=== PATIENT | female | born 1975 | race Two or more races ===

== ENCOUNTER 2020-07-02 10:11 | Outpatient (REF) | payer OTHER, SELFPAY ==
--- NOTE | ~2020-07-02 | US_ITS ---
EXAMINATION: US THYROID CLINICAL INFORMATION: Hypothyroidism COMPARISON: None TECHNIQUE: Linear transducer grayscale and color Doppler examination with attention to the region of the thyroid. FINDINGS: SIZE: Measurements of the thyroid lobes and nodules are given in sagittal, anteroposterior and transverse dimensions respectively. Right Thyroid Lobe: 3.1 x 0.9 x 1.0 cm, volume 1.5 mL. Parenchyma: The gland echotexture is heterogeneous. Thyroid vascularity is normal. Left Thyroid Lobe: 3.1 x 0.8 x 0.7 cm, volume 0.9 mL. Parenchyma: The gland echotexture is heterogeneous. Thyroid vascularity is normal. Isthmus: 0.4 cm in maximum AP dimension. No focal thyroid nodule is seen. NODES: No lymphadenopathy is seen in the tissue surrounding the thyroid gland. US/US thyroid IMPRESSION: Small heterogeneous hypoechoic thyroid gland without focal abnormality most consistent with sequelae of thyroiditis. Imaging follow-up is recommended as clinically indicated. ACR TI-RADS RECOMMENDATION REFERENCE: Ultrasound-guided fine-needle aspiration, followup ultrasound, no further follow up. * TR1 (0 point) and TR 2 (2 points): No FNA or follow up * TR3 (3 points): FNA if more than or equal to 2.5 cm in maximum dimension, followup ultrasound in 1, 3 and 5 years if 1.5 to 2.4 cm in maximum dimension. * TR4 (4-6 points): FNA if more than or equal to 1.5 cm in maximum dimension, followup ultrasound in 1, 2, 3 and 5 years if 1 to 1.4 cm in maximum dimension. * TR5 (more than or equal to 7 points): FNA if more than or equal to 1 cm in maximum dimension, followup ultrasound every year for 5 years if 0.5 to 0.9 cm in maximum dimension. * TR3, TR4 or TR5 nodules that are below the size threshold for follow up receive no follow up.
== END 2020-07-02 10:12 | disposition home or self-care (01) ==
LOC: HO.US 10:11
PROVIDERS: PCP Internal Medicine; Visit Provider Internal Medicine
DX: E03.8 Other specified hypothyroidism (principal)
CPT/HCPCS: 76536

== ENCOUNTER 2020-11-19 13:50 | Outpatient (REF) | payer OTHER, SELFPAY ==
--- NOTE | ~2020-11-19 | MM_ITS ---
EXAMINATION: MM SCREENING DIGITAL BREAST TOMOSYNTHESIS, BILATERAL CLINICAL INFORMATION: Screening. Asymptomatic. The lifetime risk of breast cancer based on the Tyrer-Cuzick Model is 8%. COMPARISON: Mammography: 11/14/2019; outside mammography 01/05/2018, 08/18/2016 ([facility]) TECHNIQUE: Digital breast tomosynthesis is performed in both the craniocaudal and mediolateral oblique views along with computer-aided detection (CAD). Synthesized 2D images are generated from the tomosynthesis. FINDINGS: There are scattered areas of fibroglandular density (ACR BI-RADS breast composition Category b). The left MLO view has asymmetric density mid upper breast 7.5 cm from nipple without correlate on CC view likely summation artifact. Patient will be recalled for additional imaging. The remainder left breast shows no mass or architectural abnormality or abnormal calcifications. The right breast has some loosely grouped calcifications grouped mid 7:00 position. Additional magnification views will be requested. The remainder of the right breast shows no mass or architectural abnormality. The bilateral axilla and skin contours are unremarkable. MM/MM tomosynthesis screening BI IMPRESSION: 1. Left: Asymmetric density mid upper breast on MLO view, likely summation artifact. 2. Right: Loosely grouped calcifications mid 7:00 position. ASSESSMENT: BI-RADS 0: Incomplete - Need Additional Imaging Evaluation RECOMMENDATION: 1. Additional views of the left breast (and spot MLO, standard ML). 2. Additional views of the right breast (magnification CC, magnification ML). 3. Targeted ultrasound left breast if warranted after review of the additional views. 4. Radiology department staff will contact the patient for additional imaging. This patient's information was entered into a reminder system with a target due date for their next mammogram.
== END 2020-11-19 13:51 | disposition home or self-care (01) ==
LOC: HO.MAMMO 13:50
PROVIDERS: Visit Provider Internal Medicine
DX: Z12.31 Encounter for screening mammogram for malignant neoplasm of breast (principal)
CPT/HCPCS: 77063; 77067

== ENCOUNTER 2020-12-07 09:43 | Outpatient (REF) | payer OTHER, SELFPAY ==
--- NOTE | ~2020-12-07 | MM_ITS ---
EXAMINATION: MM DIAGNOSTIC DIGITAL BREAST TOMOSYNTHESIS, BILATERAL CLINICAL INFORMATION: Recall from screening for bilateral findings: Asymmetric density upper left breast limited to MLO view; and loosely grouped calcifications mid 7:00 right breast. TC score 8%. COMPARISON: Mammography: 11/19/2020, 11/14/2019, 01/05/2018 TECHNIQUE: Digital breast tomosynthesis is performed. 2D images are generated from the tomosynthesis. The following views are obtained: 3-D spot left MLO, 3-D standard left ML, magnification right CC, magnification right ML. FINDINGS: There are scattered areas of fibroglandular density (ACR BI-RADS breast composition Category b). Additional views left breast demonstrate no persistent asymmetric density, mass, architectural abnormality in the area of interest. Left breast will be reassessed again at time of next bilateral annual mammography. Additional magnification views right breast demonstrates group of 4 benign round calcifications mid 7:00 position. Calcifications will be reassessed again in 6 months. Results are discussed with the patient at time of visit. MM/MM tomosynthesis added view BI IMPRESSION: 1. Right: Group of approximately 4 round benign-appearing calcifications mid 7:00 position. 2. Left: Additional views show no significant changes from prior studies. ASSESSMENT: BI-RADS 3: Probably Benign RECOMMENDATION: Diagnostic right mammography in 6 months. This patient's information was entered into a reminder system with a target due date for their next mammogram.
== END 2020-12-07 09:44 | disposition home or self-care (01) ==
LOC: HO.MAMMO 09:43
PROVIDERS: Visit Provider Internal Medicine
DX: R92.1 Mammographic calcification found on diagnostic imaging of breast (principal); R92.2 Inconclusive mammogram
CPT/HCPCS: 77062; 77066

== ENCOUNTER 2021-06-11 10:32 | Outpatient (REF) | payer OTHER, SELFPAY ==
--- NOTE | ~2021-06-11 | MM_ITS ---
EXAMINATION: MM DIAGNOSTIC DIGITAL BREAST TOMOSYNTHESIS, RIGHT CLINICAL INFORMATION: Six-month followup right breast calcifications. COMPARISON: Mammography: 12/07/2020 and studies dating back to 08/18/2016 TECHNIQUE: Digital breast tomosynthesis is performed in both the craniocaudal and mediolateral oblique views along with computer-aided detection (CAD). Synthesized 2-D images are generated from the tomosynthesis. Spot magnification views of the right breast in 90-degree mediolateral view and craniocaudal view performed. FINDINGS: There are scattered areas of fibroglandular density (ACR BI-RADS breast composition Category b). There is a stable parenchymal pattern of the right breast with no new abnormal dominant mass or suspicious grouping of microcalcifications. The calcifications within the inferior lateral aspect are stable. There is a stable region of asymmetric density within the deep lateral aspect of the right breast. Results are provided to the patient at time of visit by the technologist. MM/MM tomosynthesis diagnostic RT IMPRESSION: There are no significant changes from prior study. ASSESSMENT: BI-RADS 3: Probably Benign. RECOMMENDATION: Diagnostic mammography in 6 months. This patient's information was entered into a reminder system with a target due date for their next mammogram.
== END 2021-06-11 10:33 | disposition home or self-care (01) ==
LOC: HO.MAMMO 10:32
PROVIDERS: PCP Internal Medicine; Visit Provider Internal Medicine
DX: R92.1 Mammographic calcification found on diagnostic imaging of breast (principal)
CPT/HCPCS: 77061; 77065

== ENCOUNTER 2021-12-28 10:36 | Outpatient (REF) | payer OTHER, SELFPAY ==
--- NOTE | ~2021-12-28 | MM_ITS ---
EXAMINATION: MM SCREENING DIGITAL BREAST TOMOSYNTHESIS, BILATERAL CLINICAL INFORMATION: Screening. Asymptomatic. The lifetime risk of breast cancer based on the Tyrer-Cuzick Model is 9%. COMPARISON: Mammography: 06/11/2021, 12/07/2020, 11/19/2020, 11/14/2019, outside mammography 01/05/2018 ([facility]). TECHNIQUE: Digital breast tomosynthesis is performed in both the craniocaudal and mediolateral oblique views along with computer-aided detection (CAD). Synthesized 2D images are generated from the tomosynthesis. FINDINGS: There are scattered areas of fibroglandular density (ACR BI-RADS breast composition Category b). There are no significant masses, abnormal calcifications, or other abnormalities. Parenchymal pattern is similar to prior studies. There is no developing density or architectural abnormality. The axilla and skin contours are unremarkable. No significant changes. MM/MM tomosynthesis screening BI IMPRESSION: No mammographic evidence of malignancy. ASSESSMENT: BI-RADS 1: Negative RECOMMENDATION: Routine annual mammography screening. This patient's information was entered into a reminder system with a target due date for their next mammogram.
== END 2021-12-28 10:37 | disposition home or self-care (01) ==
LOC: HO.MAMMO 10:36
PROVIDERS: PCP Internal Medicine; Visit Provider Internal Medicine
DX: Z12.31 Encounter for screening mammogram for malignant neoplasm of breast (principal)
CPT/HCPCS: 77063; 77067

== ENCOUNTER → 2022-01-03 09:39 | Outpatient (BNVA) | payer OTHER, SELFPAY | PROVIDERS: PCP Internal Medicine; Visit Provider Physician Assistant Surgical | DX: E66.01 Morbid (severe) obesity due to excess calories (principal); Z68.42 Body mass index [BMI] 45.0-49.9, adult; Z11.0 Encounter for screening for intestinal infectious diseases | CPT/HCPCS: 83013; 99202; 99211 ==

== ENCOUNTER 2022-01-03 16:37 | Outpatient (REF) | payer OTHER, SELFPAY ==
[2022-01-04 14:00] LABS: H Pylori Breath Test Negative (Negative)
== END 2022-01-03 16:38 | disposition home or self-care (01) ==
LOC: HO.LNP 16:37
PROVIDERS: Visit Provider Physician Assistant Surgical
DX: Z13.89 Encounter for screening for other disorder (principal)
CPT/HCPCS: 83013

== ENCOUNTER 2022-01-04 10:49 | Outpatient (REF) | payer OTHER, SELFPAY ==
--- NOTE | ~2022-01-04 | XR_ITS ---
EXAMINATION: XR CHEST CLINICAL INFORMATION: Obesity COMPARISON: None TECHNIQUE: 2 views of the chest were obtained. FINDINGS: The cardiac and mediastinal contours are normal. The lungs are clear. There is no pleural effusion or pneumothorax. There are degenerative changes of the spine. XR/XR chest 2V IMPRESSION: No evidence for acute disease in the chest.
[2022-01-04 11:18] LABS: MANUAL DIFF FLAG NO
--- NOTE | 2022-01-04 11:20 | ECG_ITS ---
Test Reason : E66.01 Blood Pressure : / mmHG Vent. Rate : 075 BPM Atrial Rate : 075 BPM P-R Int : 142 ms QRS Dur : 082 ms QT Int : 386 ms P-R-T Axes : 029 053 034 degrees QTc Int : 431 ms Normal sinus rhythm Normal ECG No previous ECGs available Referred By: Dawson Ziegler Electronically Signed By:PAMELA RHODES MD
[2022-01-04 11:42] LABS: Basophils Percent Auto 0.4 % (0-2); Eosinophils Absolute Auto 0.2 X10*3/uL (0.0-0.4); Eosinophils Percent Auto 3.1 % (0-4); Hematocrit 36.8 % (37.0-47.0); Hemoglobin 11.8 g/dl (12.0-16.0); Imm Gran Abs Auto 0.02 X10*3/uL (0.00-0.03); Imm Gran Pct Auto 0.3 % (0.0-0.4); Lymphocytes Absolute Auto 2.5 X10*3/uL (1.2-4.9); Lymphocytes Percent Auto 34.3 % (20-40); Mean Corpuscular HGB Conc 32.1 g/dl (31.0-35.0); Mean Corpuscular Hemoglobin 26.3 pg (27.0-33.0); Mean Corpuscular Volume 82.1 fL (80.0-98.0); Mean Platelet Volume 10.4 fL (9.4-12.3); Monocytes Absolute Auto 0.5 X10*3/uL (0.1-1.2); Monocytes Percent Auto 6.5 % (2-11); Neutrophils Percent Auto 55.4 % (45-73); Platelet Count 237 X10*3/uL (160-400); Red Blood Count 4.48 X10*6/uL (4.20-5.50); Red Cell Distribution Width 12.5 % (11.0-16.0); White Blood Count 7.2 X10*3/uL (4.8-10.8)
[2022-01-04 12:21] LABS: Alanine Aminotransferase 48 U/L (0-31); Albumin Level 3.8 g/dL (3.5-5.0); Alkaline Phosphatase 68 U/L (39-117); Anion Gap 14 (12-20); Aspartate Amino Transferase 51 U/L (5-31); Bilirubin Total 0.6 mg/dL (0.0-1.0); Blood Urea Nitrogen 9 mg/dL (9-16); C Reactive Protein 1.01 mg/dL (< or = 0.50); Calcium 9.2 mg/dL (8.4-10.2); Carbon Dioxide 23 mmol/L (22-29); Chloride 107 mmol/L (96-108); Cholesterol 173 mg/dL; Estimated Glomerular Filt Rate > 60; Glucose Random 110 mg/dL (60-115); HDL Cholesterol 38 mg/dL; Iron 153 mcg/dL (30-160); LDL Cholesterol Calculated 112 mg/dl; Percent Iron Saturation 37 % (15-50); Potassium 3.9 mmol/L (3.3-5.1); Sodium 140 mmol/L (135-145); Total Iron Binding Capacity 414 mcg/dL (228-428); Total Protein 7.4 g/dL (6.5-8.0); Triglycerides 119 mg/dL; Unsaturated Iron Binding 261 ug/dL
[2022-01-04 12:22] LABS: Ferritin 51 ng/mL (10-250); Insulin 27 uU/mL (2-29); TSH reflex Free T4 0.25 uIU/mL (0.32-4.0); Vitamin D 25-OH Total 16.3 ng/mL (>30)
[2022-01-04 12:46] LABS: Folate 12.5 ng/mL (> or = 4.0); Vitamin B12 157 pg/mL (200-900)
[2022-01-04 13:01] LABS: Free T4 (Free Thyroxine) 1.11 ng/dL (0.71-1.85)
[2022-01-04 13:36] LABS: Estimated Average Glucose 126 mg/dL
[2022-01-06 14:27] LABS: Calcium (PTHI) 9.1 mg/dL (8.6-10.2); PTHI 93 pg/mL (16-77)
[2022-01-07 14:10] LABS: Zinc 68 mcg/dL (60-130)
[2022-01-08 00:52] LABS: Vitamin A 29 mcg/dL (38-98)
[2022-01-10 13:37] LABS: Vitamin B1 8 nmol/L (8-30)
== END 2022-01-04 10:50 | disposition home or self-care (01) ==
LOC: HO.LAB 10:49
PROVIDERS: PCP Internal Medicine; Visit Provider Physician Assistant Surgical
DX: E66.01 Morbid (severe) obesity due to excess calories (principal)
CPT/HCPCS: 36415; 71046; 80053; 80061; 82306; 82607; 82728; 82746; 83036; 83525; 83540; 83970; 84425; 84439; 84443; 84590; 84630; 85025; 86140; 93005

== ENCOUNTER → 2022-01-11 14:00 | Outpatient (BNVA) | payer OTHER, SELFPAY | PROVIDERS: PCP Internal Medicine; Referring Provider Physician Assistant Surgical; Visit Provider Counselor Mental Health | DX: F43.20 Adjustment disorder, unspecified (principal); E66.01 Morbid (severe) obesity due to excess calories | CPT/HCPCS: 90791 ==

== ENCOUNTER → 2022-02-01 13:17 | Outpatient (BNVA) | payer OTHER, SELFPAY | PROVIDERS: PCP Internal Medicine; Referring Provider Physician Assistant Surgical; Visit Provider Dietitian, Registered | DX: E66.01 Morbid (severe) obesity due to excess calories (principal); Z68.41 Body mass index [BMI] 40.0-44.9, adult | CPT/HCPCS: 97802 ==

== ENCOUNTER 2022-02-21 08:20 | Outpatient (REF) | payer OTHER, SELFPAY ==
--- NOTE | ~2022-02-21 | FL_ITS ---
EXAMINATION: XR FLUOROSCOPY UPPER GI WITH AIR CLINICAL INFORMATION: Morbid/severe obesity due to excess calories. COMPARISON: None TECHNIQUE: Routine upper GI air-contrast study was performed in upright and lying positions. FINDINGS: Following oral administration of thick barium and effervescent granules, there is normal propagation of bolus from the oral cavity through the pharynx and esophagus and into the stomach without any evidence of obstruction, narrowing or stricture. On placing patient supine and prone lying, the course, caliber and peristalsis of stomach, duodenal bulb and the sweep are normal. The mucosal pattern of the stomach and the duodenum is normal. FLUOROSCOPY TIME: 1.1 min. DOSE AREA PRODUCT: 28.923 uGy-m2 (microgray-meter squared). FL/FL upper GI w air IMPRESSION: Unremarkable upper GI air-contrast study.
--- NOTE | ~2022-02-21 | US_ITS ---
EXAMINATION: US COMPLETE ABDOMEN WITH LIVER ELASTOGRAPHY CLINICAL INFORMATION: Morbid to severe obesity. COMPARISON: None. TECHNIQUE: Real-time imaging of the abdominal viscera. Noninvasive ultrasound liver fibrosis assessment is performed using Adrian ElastPQ point quantification shear wave elastography (2D-SWE) with a C5-2 MHz transducer. Multiple elastography samples are obtained. FINDINGS: PANCREAS: Normal. The visualized pancreatic head and body are normal in appearance. The remainder of the pancreas is obscured from visualization by the overlying bowel gas. ABDOMINAL AORTA: The proximal, middle, and distal aortic segments are normal in caliber. INFERIOR VENA CAVA: Visualized portions are normal. LIVER: Normal. The liver demonstrates normal size, contour and echogenicity. No focal lesion or intrahepatic biliary duct dilatation. The right lobe measures 12.3 cm in length. The left lobe measures 9.9 cm in length. Portal flow is hepatopedal. Shear wave liver elastography median stiffness is 1.38 m/s (reference: normal median stiffness is 1.3 m/s or less). Quality of elasto sampling is suboptimal. IQR/median stiffness to assess sampling precision is 0.22 (reference: good quality data set is IQR/median stiffness of 0.15 or less). GALLBLADDER: The gallbladder is physiologically distended with multiple echogenic stones. No sludge, polyps, wall thickening or pericholecystic fluid seen. COMMON BILE DUCT: Normal in caliber measuring 0.4 cm in diameter. RIGHT KIDNEY: Cyst upper pole complex measuring 1.4 x 1.1 x 1.0 cm. No hydronephrosis. No renal calculi or focal parenchymal lesions. The kidney measures 11.1 cm in maximum dimension. LEFT KIDNEY: Normal. No hydronephrosis. No renal calculi or focal parenchymal lesions. The kidney measures 10.3 cm in maximum dimension. SPLEEN: Normal. The spleen measures 10.3 cm in maximum dimension. FREE FLUID: None. US/US abdomen comp w elastography IMPRESSION: 1. Complex upper pole right renal cyst measuring 1.4 cm. 2. Cholelithiasis without wall thickening. 3. Liver elastography: Median liver stiffness measures 1.38 m/s, borderline high probability normal. REFERENCE: Society of Radiologists in Ultrasound Liver Stiffness Thresholds (2020): LIVER STIFFNESS THRESHOLDS: *Liver Stiffness equal or less than 1.3 m/s: High probability of being normal. *Liver Stiffness less than 1.7 m/s: In the absence of other known clinical signs, rules out compensated advanced chronic liver disease. *Liver Stiffness 1.7-2.1 m/s: Suggestive of compensated advanced chronic liver disease but need further test for confirmation. *Liver Stiffness over 2.1 m/s: Rules in compensated advanced chronic liver disease. *Liver Stiffness over 2.4 m/s: Suggestive of significant portal hypertension. QUALITY OF DATA SET: *IQR/Median value equal or less than 0.15 implies a quality data set. *IQR/Median value over 0.15 implies a poor quality data set. SIGNIFICANT CHANGE FROM PRIOR EXAM: Significant change if liver stiffness measurement is 10% or greater from prior exam. OTHER CONSIDERATIONS: The stage of liver fibrosis may be overestimated in the setting of acute hepatitis, liver inflammation, elevated liver function tests, hepatic vascular congestion, obstructive cholestasis, non-fasting state, and infiltrative diseases such as amyloidosis and lymphoma. In some patients with NAFLD, the liver stiffness thresholds for compensated advanced chronic liver disease may be lower. In causes other than viral hepatitis and NAFLD, liver stiffness thresholds are not well established.
[2022-02-21 08:46] LABS: MANUAL DIFF FLAG NO
[2022-02-21 09:16] LABS: Basophils Percent Auto 0.4 % (0-2); Eosinophils Absolute Auto 0.1 X10*3/uL (0.0-0.4); Hematocrit 40.1 % (37.0-47.0); Hemoglobin 12.5 g/dl (12.0-16.0); Imm Gran Abs Auto 0.01 X10*3/uL (0.00-0.03); Imm Gran Pct Auto 0.2 % (0.0-0.4); Lymphocytes Absolute Auto 1.6 X10*3/uL (1.2-4.9); Lymphocytes Percent Auto 35.7 % (20-40); Mean Corpuscular HGB Conc 31.2 g/dl (31.0-35.0); Mean Corpuscular Hemoglobin 25.8 pg (27.0-33.0); Mean Corpuscular Volume 82.7 fL (80.0-98.0); Mean Platelet Volume 11.7 fL (9.4-12.3); Monocytes Absolute Auto 0.3 X10*3/uL (0.1-1.2); Monocytes Percent Auto 6.5 % (2-11); Neutrophils Absolute Auto 2.5 x10*3/uL (2.0-8.3); Neutrophils Percent Auto 54.2 % (45-73); Platelet Count 183 X10*3/uL (160-400); Red Blood Count 4.85 X10*6/uL (4.20-5.50); Red Cell Distribution Width 13.8 % (11.0-16.0); White Blood Count 4.6 X10*3/uL (4.8-10.8)
[2022-02-21 09:17] LABS: INTERNATIONAL NORM RATIO 1.2 (0.9-1.1); Prothrombin Time 13.4 SEC (10.0-13.1)
[2022-02-21 09:20] LABS: Partial Thromboplastin Time 31.3 SEC (26.0-36.4)
[2022-02-21 09:38] LABS: Estimated Average Glucose 108 mg/dL; Hemoglobin A1c % 5.4 %
[2022-02-21 09:57] LABS: Alanine Aminotransferase 75 U/L (0-31); Alkaline Phosphatase 56 U/L (39-117); Anion Gap 12 (12-20); Aspartate Amino Transferase 56 U/L (5-31); Bilirubin Total 0.6 mg/dL (0.0-1.0); Blood Urea Nitrogen 13 mg/dL (9-16); Calcium 9.4 mg/dL (8.4-10.2); Carbon Dioxide 23 mmol/L (22-29); Chloride 105 mmol/L (96-108); Cholesterol 155 mg/dL; Estimated Glomerular Filt Rate > 60; Glucose Random 87 mg/dL (60-115); HDL Cholesterol 34 mg/dL; Insulin 12 uU/mL (2-29); LDL Cholesterol Calculated 103 mg/dl; Potassium 4.3 mmol/L (3.3-5.1); Sodium 136 mmol/L (135-145); TSH reflex Free T4 2.17 uIU/mL (0.32-4.0); Total Protein 7.4 g/dL (6.5-8.0); Triglycerides 92 mg/dL
== END 2022-02-21 08:21 | disposition home or self-care (01) ==
LOC: HO.XRAY 08:20
PROVIDERS: Absent Provider Surgery; PCP Internal Medicine; Visit Provider Physician Assistant Surgical
DX: E66.01 Morbid (severe) obesity due to excess calories (principal); E03.9 Hypothyroidism, unspecified
CPT/HCPCS: 36415; 74246; 76705; 76981; 80053; 80061; 83036; 83525; 84443; 85025; 85610; 85730; 86140

== ENCOUNTER 2022-03-08 11:57 | Inpatient (IN) | payer OTHER, SELFPAY ==
[2022-02-24 10:24] VITALS: BMI 40.5
--- NOTE | 2022-03-04 10:35 | HO.ANESPROP2 ---
Documented by User: Monet White NP 03/04/22 10:42 HPI - Anesthesia Eval Consult details Narrative: 46yo F for Gastrectomy Sleeve,EGD,possible diaphragmatic hernia,possible ventral hernia,possible open PMFSH Active Problems Active Problems: All Active Problems (Updated 02/24/22 @ 10:29 by Ene Dillon RN) Morbid obesity (Acute) Adjustment disorder, unspecified (Acute) Non-insulin dependent diabetes mellitus (Acute) Hypothyroid (Acute) Past Medical History Medical History Arthritis Environmental and seasonal allergies Hypothyroid Family History Family History Mother Anxiety Developmental delay Father Diabetes Daughter No known health problems Daughter Premature baby Son Hypoglycemia Eye abnormalities Obstructive sleep apnea (adult) (pediatric) Developmental delay Surgical History Surgical History (Updated 03/08/22 @ 13:18 by Lynette Pepper MD) delivery delivered History of root canal procedure Social History Social History Household Members: Spouse and Children Housing: House Are you a primary critical care transport nurse to a significant other at home: No Do you presently have visiting nurse or other home services: No Alcohol intake: never Patient Tobacco Use Status: Never used Tobacco Current occupational status: employed Current occupation: [employer] Meds Allergies Allergy/AdvReac Type Severity Reaction Status Date / Time Iodinated Contrast Media Allergy Severe Anaphylaxis Verified 02/24/22 10:24 [IV Contrast Dye] shellfish derived Allergy Severe Anaphylaxis Verified 02/24/22 10:23 Home Medications Medication Instructions Recorded Confirmed Last Taken Type cetirizine 10 mg tablet 10 mg PO DAILY 12/08/21 02/24/22 Unknown History fluticasone propionate 50 2 spray intranasal DAILY 12/08/21 02/24/22 Unknown History mcg/actuation nasal spray,suspension ketotifen fumarate 0.025 % (0.035 1 drp ophthalmic (eye) BID 12/08/21 02/24/22 Unknown History %) eye drops (Allergy Eye (ketotifen)) montelukast 10 mg tablet 10 mg PO BEDTIME 12/08/21 02/24/22 Unknown History oxybutynin chloride 10 mg 10 mg PO DAILY 12/08/21 02/16/22 Unknown History tablet,extended release 24 hr epinephrine 0.3 mg/0.3 mL IM DIRECTED anaphylaxis 02/24/22 02/24/22 Unknown History injection, auto-injector levothyroxine 125 mcg tablet 1 tab DAILY 02/24/22 02/24/22 Unknown History Exam Exam Date and Time: March 04, 2022 1035 Height,Weight and Vital Signs: Height 5 ft 1.5 in Weight 98.883 kg Pertinent Lab Results Pertinent Lab Results: Laboratory Tests 02/21/22 08:40 Blood Type A Positive Antibody Screen NEGATIVE Laboratory Tests 02/21/22 02/21/22 08:45 08:45 WBC 4.6 L Hgb 12.5 Hct 40.1 Plt Count 183 Sodium 136 Potassium 4.3 Chloride 105 Carbon Dioxide 23 BUN 13 Creatinine 0.92 Narrative Narrative: EKG 12/2021 Vent. Rate : 075 BPM ? ? Atrial Rate : 075 BPM ?? P-R Int : 142 ms? QRS Dur : 082 ms ? ? QT Int : 386 ms ? ? ? P-R-T Axes : 029 053 034 degrees ?? QTc Int : 431 ms ? Normal sinus rhythm Normal ECG No previous ECGs available Assessment and Plan Assessment Anesthesia Assessment: Chart Reviewed Documented by User: Lynette Pepper MD 03/08/22 13:30 [facility] Active Problems Active Problems: All Active Problems (Updated 02/24/22 @ 10:29 by Ene Dillon, SHELLY) Morbid obesity (Acute) Adjustment disorder, unspecified (Acute) Non-insulin dependent diabetes mellitus (Acute) Hypothyroid (Acute) Overactive bladder Past Medical History Medical History Arthritis Environmental and seasonal allergies Hypothyroid Family History Family History Mother Anxiety Developmental delay Father Diabetes Daughter No known health problems Daughter Premature baby Son Hypoglycemia Eye abnormalities Obstructive sleep apnea (adult) (pediatric) Developmental delay Family history of problems with anesthesia: No Surgical History Surgical History (Updated 03/08/22 @ 13:18 by Lynette Pepper MD) delivery delivered History of root canal procedure History of Problems with Anesthesia: No Social History Social History Household Members: Spouse and Children Housing: House Are you a primary critical care transport nurse to a significant other at home: No Do you presently have visiting nurse or other home services: No Alcohol intake: never Patient Tobacco Use Status: Never used Tobacco Current occupational status: employed Current occupation: [employer] Meds Allergies Allergy/AdvReac Type Severity Reaction Status Date / Time Iodinated Contrast Media Allergy Severe Anaphylaxis Verified 02/24/22 10:24 [IV Contrast Dye] shellfish derived Allergy Severe Anaphylaxis Verified 02/24/22 10:23 Home Medications Medication Instructions Recorded Confirmed Last Taken Type cetirizine 10 mg tablet 10 mg PO DAILY 12/08/21 02/24/22 Unknown History fluticasone propionate 50 2 spray intranasal DAILY 12/08/21 02/24/22 Unknown History mcg/actuation nasal spray,suspension ketotifen fumarate 0.025 % (0.035 1 drp ophthalmic (eye) BID 12/08/21 02/24/22 Unknown History %) eye drops (Allergy Eye (ketotifen)) montelukast 10 mg tablet 10 mg PO BEDTIME 12/08/21 02/24/22 Unknown History oxybutynin chloride 10 mg 10 mg PO DAILY 12/08/21 02/16/22 Unknown History tablet,extended release 24 hr epinephrine 0.3 mg/0.3 mL IM DIRECTED anaphylaxis 02/24/22 02/24/22 Unknown History injection, auto-injector levothyroxine 125 mcg tablet 1 tab DAILY 02/24/22 02/24/22 Unknown History Exam Height,Weight and Vital Signs: Height 5 ft 1.5 in Weight 98.883 kg Vital Signs Temp Pulse Resp BP Pulse Ox O2 Del Method 03/08/22 12:18 98.0 F 98 18 109/63 98 Room Air Pertinent Lab Results Pertinent Lab Results: Laboratory Tests 02/21/22 08:40 Blood Type A Positive Antibody Screen NEGATIVE Laboratory Tests 02/21/22 02/21/22 08:45 08:45 WBC 4.6 L Hgb 12.5 Hct 40.1 Plt Count 183 Sodium 136 Potassium 4.3 Chloride 105 Carbon Dioxide 23 BUN 13 Creatinine 0.92 Lab Results 02/21/22 03/08/22 03/08/22 Range/Units 08:40 12:02 12:02 Urine Test NEGATIVE (NEGATIVE) COVID-19 ([facility]) Negative (Negative) COVID-19 Clin Com See Note Blood Type A Positive Antibody Screen NEGATIVE Airway Mallampati Class: II TM Dist: >3cm Neck ROM: Full Loose/Missing/Broken Teeth: Yes (Many missing. Broken bottom right back) Heart: RRR Lungs: CTAB Assessment and Plan Assessment Anesthesia Assessment: Anesthesia Plan Discussed Final Anesthetic Review Family History of Problems with Anesthesia: No History of Problems with Anesthesia: No NPO: Yes ASA Class: III Final Preanesthetic Review: No Changes in Pt Med Stat, Meds/Allgs Chart Reviewed, Consent Obtained/Reviewed and Anes Risks/Benef Reviewed Patient Risk: Intermediate Procedure Risk: Intermediate Assessment/Block/Sedation in SS: Assess/Block/Sedation- Anesthetic Plan Anesthetic Plan: GA Disposition: Standard PACU and Inp. Admit - Standard Bed
--- NOTE | 2022-03-05 13:42 | MHC.SHP ---
Pre-Procedural Eval Section A Date of Service: 03/05/22 The patient is an INPATIENT: Yes The History & Physical has been completed within 30 days and I have reviewed it.: Yes Section B Chief Complaint: Morbid (severe) obesity due to excess calories Relevant Family History (Specify if Yes): No Relevant Social History: None Present Medications: None Medical History: No relevant PMH History of Previous Operations: No relevant previous surgery Allergies: Allergies Allergy/AdvReac Type Severity Reaction Status Date / Time Iodinated Contrast Media Allergy Severe Anaphylaxis Verified 02/24/22 10:24 [IV Contrast Dye] shellfish derived Allergy Severe Anaphylaxis Verified 02/24/22 10:23 Review of Systems Sugical H&P ROS: Negative: Constitution, Cardiovascular, Respiratory, Neurological, Psychiatric, Hem-Onc, Allergic/Immunologic, Gastrointestinal, Genitourinary, Musculoskeletal, Integumentary, Endocrine and Eyes/Ears/Nose/Throat Exam Surgical H&P Exam: Normal: HEENT, Normal: Heart, Normal: Lungs, Normal: Extremities, Normal: Abdomen, Normal: Skin and Normal: Neurological Plan Diagnosis/Plan: Unchanged I have reviewed the history and physical and performed a pertinent physical examination on my patient. No changes have occurred unless specified. Time Spent With Patient Time: Total time managing care of this patient today ____ minutes.
[2022-03-08] VITALS (12 sets, daily range): BP systolic 103–137; BP diastolic 57–72; PULSE 59–98; RESP 15–18; TEMP 36.1–37.1; O2SAT 98–100; BMI 37.5
[2022-03-08 12:29] LABS: UPreg QC Valid YES; Urine Pregnancy NEGATIVE (NEGATIVE)
[2022-03-08 12:37] LABS: COVID-19 Test Negative (Negative); IDNOW Serial# 16C4AD1C
[2022-03-08] MEDS: Lactated Ringers 1,000 ML 999 ML IV (12:43)
--- NOTE | 2022-03-08 13:55 | HO.ANESPROP2 ---
[facility] Active Problems Active Problems: All Active Problems (Updated 02/24/22 @ 10:29 by Ene Dillon RN) Morbid obesity (Acute) Adjustment disorder, unspecified (Acute) Non-insulin dependent diabetes mellitus (Acute) Hypothyroid (Acute) Past Medical History Medical History Arthritis Environmental and seasonal allergies Hypothyroid Family History Family History Mother Anxiety Developmental delay Father Diabetes Daughter No known health problems Daughter Premature baby Son Hypoglycemia Eye abnormalities Obstructive sleep apnea (adult) (pediatric) Developmental delay Family history of problems with anesthesia: No Surgical History Surgical History (Updated 03/08/22 @ 13:18 by Lynette Pepper MD) delivery delivered History of root canal procedure History of Problems with Anesthesia: No Social History Social History Household Members: Spouse and Children Housing: House Are you a primary resident care technician to a significant other at home: No Do you presently have visiting nurse or other home services: No Alcohol intake: never Patient Tobacco Use Status: Never used Tobacco Have you been hit, kicked, punched, or otherwise hurt by someone within the past year? If so, by whom?: No Are you DNR?: No Advance Directives: No Advance Directives Information Provided: Yes Advance Directives on File: No Recently lost weight without trying: No Nutrition Risks: No Nutritional Risk Patient : No FDLMP: unknown : No Poor oral hygiene: No Current occupational status: employed Current occupation: [employer] Meds Allergies Allergy/AdvReac Type Severity Reaction Status Date / Time Iodinated Contrast Media Allergy Severe Anaphylaxis Verified 02/24/22 10:24 [IV Contrast Dye] shellfish derived Allergy Severe Anaphylaxis Verified 02/24/22 10:23 Active Medications: Current Medications Fentanyl (Fentanyl Citrate/Pf 100 Mcg/2 Ml Vial) 25 mcg IVPUSH Q5M PRN; Protocol PRN Reason: Pain, Moderate (Pain Scale 4-6 Hydromorphone HCl (Hydromorphone Hcl 0.5 Mg/0.5 Ml Syringe) 0.25 mg IVPUSH Q5M PRN; Protocol PRN Reason: Pain, Severe (Pain Scale 7-10) Lactated Ringer's (Lr) 1,000 mls @ 100 mls/hr IVCONT .Q10H DEANDRA Lactated Ringer's (Lr) 1,000 mls @ 999 mls/hr IV .Q1H1M DEANDRA Stop: 03/08/22 14:00 Last Admin: 03/08/22 12:43 Dose: 999 mls/hr Promethazine HCl 6.25 mg/ (Sodium Chloride) 50.25 mls @ 201 mls/hr IV ONCE PRN PRN Reason: Nausea and Vomiting Ondansetron HCl (Ondansetron Hcl 4 Mg/2 Ml Vial) 4 mg IVPUSH ONCE PRN PRN Reason: Nausea and Vomiting Home Medications Medication Instructions Recorded Confirmed Last Taken Type cetirizine 10 mg tablet 10 mg PO DAILY 12/08/21 02/24/22 Unknown History fluticasone propionate 50 2 spray intranasal DAILY 12/08/21 02/24/22 Unknown History mcg/actuation nasal spray,suspension ketotifen fumarate 0.025 % (0.035 1 drp ophthalmic (eye) BID 12/08/21 02/24/22 Unknown History %) eye drops (Allergy Eye (ketotifen)) montelukast 10 mg tablet 10 mg PO BEDTIME 12/08/21 02/24/22 Unknown History oxybutynin chloride 10 mg 10 mg PO DAILY 12/08/21 02/16/22 Unknown History tablet,extended release 24 hr epinephrine 0.3 mg/0.3 mL IM DIRECTED anaphylaxis 02/24/22 02/24/22 Unknown History injection, auto-injector levothyroxine 125 mcg tablet 1 tab DAILY 02/24/22 02/24/22 Unknown History Exam Exam Date and Time: March 08, 2022 1355 Height,Weight and Vital Signs: Height 5 ft 1.5 in Weight 91.626 kg Last Vital Signs Temp 98.0 F 03/08/22 12:18 Pulse 98 03/08/22 12:18 Resp 18 03/08/22 12:18 BP 109/63 03/08/22 12:18 Pulse Ox 98 03/08/22 12:18 O2 Del Method 03/08/22 12:18 Pertinent Lab Results Pertinent Lab Results: Laboratory Tests 02/21/22 03/08/22 03/08/22 08:40 12:02 12:02 Urine Test NEGATIVE COVID-19 (DELMIS) Negative COVID-19 Clin Com See Note Blood Type A Positive Antibody Screen NEGATIVE Airway Mallampati Class: II TM Dist: >3cm Neck ROM: Full Assessment and Plan Assessment Anesthesia Assessment: Anesthesia Plan Discussed and Chart Reviewed Final Anesthetic Review Family History of Problems with Anesthesia: No History of Problems with Anesthesia: No NPO: Yes ASA Class: III Final Preanesthetic Review: No Changes in Pt Med Stat, Meds/Allgs Chart Reviewed, Consent Obtained/Reviewed and Anes Risks/Benef Reviewed Patient Risk: Intermediate Procedure Risk: Intermediate Anesthetic Plan Anesthetic Plan: GA Disposition: Standard PACU
--- NOTE | 2022-03-08 14:13 | P.PNGS_ITS ---
Subjective Subjective Date of Service: 03/09/22 Interval history: Patient has mild incisional pain, but was able to ambulate and use the incentive spirometer. She is tolerating phase 1 bariatric diet Physical Exam Vital Signs: Vital Signs: Last Vital Signs Temp 98.0 F 03/08/22 12:18 Pulse 98 03/08/22 12:18 Resp 18 03/08/22 12:18 BP 109/63 03/08/22 12:18 Pulse Ox 98 03/08/22 12:18 O2 Del Method 03/08/22 12:18 BMI result Body Mass Index 37.5 GI: Inspection: Yes normal to inspection, Yes incision (clean, dry and intact) and Yes obesity Palpation (GI): Soft to palpation Extrem: Right lower extremity: normal to inspection (no calf tenderness) Left lower extremity: normal to inspection (no calf tenderness) Objective Data Active Medications Fentanyl (Fentanyl Citrate/Pf 100 Mcg/2 Ml Vial) 25 mcg IVPUSH Q5M PRN; Protocol PRN Reason: Pain, Moderate (Pain Scale 4-6 Fentanyl (Fentanyl Citrate/Pf 100 Mcg/2 Ml Vial) 50 mcg IVPUSH Q5M PRN; Pr otocol PRN Reason: Pain, Severe (Pain Scale 7-10) Hydromorphone HCl (Hydromorphone Hcl 0.5 Mg/0.5 Ml Syringe) 0.25 mg IVPUSH Q5M PRN; Protocol PRN Reason: Pain, Severe (Pain Scale 7-10) Lactated Ringer's (Lr) 1,000 mls @ 100 mls/hr IVCONT .Q10H DEANDRA Promethazine HCl 6.25 mg/ (Sodium Chloride) 50.25 mls @ 201 mls/hr IV ONCE PRN PRN Reason: Nausea and Vomiting Ondansetron HCl (Ondansetron Hcl 4 Mg/2 Ml Vial) 4 mg IVPUSH ONCE PRN PRN Reason: Nausea and Vomiting Ondansetron HCl (Ondansetron Hcl 4 Mg/2 Ml Vial) 4 mg IVPUSH ONCE PRN PRN Reason: Nausea and Vomiting Labs CBC & Chem 7: 03/09/22 06:09 03/09/22 06:09 Labs: Laboratory Results - last 24 hr 03/08/22 03/08/22 12:02 12:02 Urine Test NEGATIVE COVID-19 (DELMIS) Negative COVID-19 Clin Com See Note Procedures Date of Service Date of Service: 03/09/22 Progress Note: A&P Assessment and plan (1) Morbid obesity: Status: Acute Assessment and Plan: s/p laparoscopic sleeve gastrectomy and gastropexy Doing well Check am labs. If OK, will discharge home (2) Non-insulin dependent diabetes mellitus: Status: Acute (3) Hypothyroid: Status: Acute (4) Cholelithiasis: Status: Acute (5) Stress incontinence: Status: Acute (6) S/P laparoscopic sleeve gastrectomy: Status: Acute Time Spent With Patient Time: Total time managing care of this patient today ____ minutes. Quality Stroke Does the patient have a stroke diagnosis?: No VTE Prior VTE?: No VTE Risk Level:: Surgical - moderate VTE Device Contraindication: N/A - Device Ordered VTE Drug Contraindication: Treatment Not Indicated
--- NOTE | 2022-03-08 14:15 | PM.OP ---
Brief Operative Note Date of Service: 03/08/22 Pre-op diagnosis: Morbid obesity with comorbidities (see below) Post-op diagnosis: same Procedure: INITIAL PATIENT BMI ON PRESENTATION AT OUR OFFICE: 47 kg/m2 LAST BMI BEFORE SURGERY: 41.7 kg/m2 COMORBIDITIES: Hypothyroidism, non-insulin dependent diabetes, cholelithiasis, stress incontinence ?The patient presented to the Weight Management Program with significant obesity that was negatively impacting the patient's comorbidities as listed above.? The program is a phased program with a special focus on preoperative medical weight management to promote substantial weight loss and prepare the patients for the second phase of the program: bariatric surgery. The patient participated in an intensive weekly lifestyle ?intervention and exercise program during which the patient ?has lost between the initial office visit and the last preoperative visit 27.7lbs, or 11.13% of initial actual body weight. It was deemed appropriate for the patient to now have bariatric surgery. In light of the current Covid-19 pandemic and the well documented strong association of obesity and increased risk of worse outcomes if infected with Covid-19 (REFERENCES:https://pubmed.ncbi.nlm.nih.gov/23064138/,?https://pubmed.ncbi.nlm.nih.gov/53401743/), any delay in undergoing bariatric surgery may lead to the patient's worsening health condition and increased?risk of more severe Covid-19 disease if infected. In addition a recent?study from [facility] published in [facility] on 03/08/2021 ([email or web address]) found that, among patients with obesity, substantial weight loss achieved with surgery was associated with improved outcomes of COVID-19 infection. The findings suggest that obesity can be a modifiable risk factor for the severity of COVID-19 infection. In addition, the patient met the BMI-criteria for bariatric surgery based on the BMI on initial presentation. The patient should not be penalized for achieving such weight loss because ?it is not sustainable long-term without surgical intervention and it was achieved in preparation for bariatric surgery ?under my direction and based on my published research ([email or web address] and?[email or web address].soard.org/article/[email or web address](84)09458-X/pdf) ?that a 10% preoperative weight loss improves long-term weight loss after surgery and reduces perioperative complications.? Insurance carriers such as [facility] have endorsed my recommendations ?and have included in their policies criteria to include a 10% preoperative weight loss requirement. PROCEDURE: Esophago-gastroscopy, laparoscopic repair of incarcerated diaphragmatic hernia, laparoscopic lysis of adhesions, laparoscopic sleeve gastrectomy and laparoscopic gastropexy INDICATIONS: This is a 46 year-old female who was electively scheduled for laparoscopic, possibly open sleeve gastrectomy. The risks and complications of the procedure were discussed with the patient in advance, particularly the possibility of ; pulmonary embolism; staple line leak; bleeding; GERD; cardiac, pulmonary, or renal complications; as well as long-term problems such as insufficient weight loss, vitamin deficiency, strictures, or ulcers. The patient understood all the risks, and was in agreement to proceed with surgery. DESCRIPTION OF PROCEDURE: After informed consent was obtained from the patient, the patient was given preoperative antibiotics, and was transferred to the operating room. After successful induction of general anesthesia, pneumatic compression devices were placed on both lower extremities. An upper endoscopy was performed next. The oropharynx and esophagus appeared to be within normal limits. There was no diaphragmatic hernia present consistent with the findings of the preoperative upper GI. The stomach was entered. Then after all fluid and air were suctioned and the stomach was fully decompressed, the scope was withdrawn and secured in the mid esophagus. The patient was then prepped and draped in the usual sterile manner, and abdominal access was established at the right upper quadrant with the Adria technique. A 12 mm blunt port was inserted, and the abdomen was insufflated with CO2 to a pressure of 15 mmHg. Under direct visualization, additional ports were placed, specifically two 5 mm Versi-step ports to the left upper quadrant, and a 5 mm Versi-Step port to the right upper quadrant. 1% lidocaine plain was used to infiltrate all port sites as well as all fascia defects. Following that, the patient was placed in a steep reverse Trendelenburg position. An additional 5 mm port was placed to the right flank for the Mediflex retractor that was used to retract the left lobe of the liver. The gastro-esophageal fat pad was opened with the ultrasonic device (Thunderbeat, Olympus) and the anterior esophagus and hiatus were exposed. The angle of His was opened with the ultrasonic device the fundus of the stomach from any diaphragmatic and splenic attachments. I then opened the gastrocolic ligament between the transverse colon and the greater curvature of the stomach with the ultrasonic device to enter the lesser sac and facilitate the ligation of the short gastric vessels. I started at a mid-point along the greater curvature and using the Thunderbeat, all short gastric vessels were divided all the way to the angle of His until the left enoch was completely dissected at its entirety. I then divided the gastro-colic ligament distally to a distance of about 3-4 cm proximal to the pylorus. The stomach was then divided transversely with one Endo BENITA-45 purple, one BENITA-60 purple load, one BENITA-45 orange load and two BENITA-60 articulating orange loads using the AEON stapler and loads. Every effort was made that the gastric sleeve had a tubular shape and an even caliber throughout. Once the sleeve resection was completed, the staple line of the gastric sleeve was reinforced with Hemoclips. The resected stomach was retrieved without difficulty from the Adria port. A gastropexy was then performed in order to prevent postoperative GERD and partial gastric volvulus. Several interrupted 2.0 Surgidac sutures were placed between the sleeve's staple line and the previously divided greater omentum and gastro-colic ligament using the Endo-Stitch device. ?An upper endoscopy was performed. There was no narrowing at the GE junction. The scope was easily advanced all the way to the pylorus which was clearly visualized. There was no narrowing anywhere and the sleeve's caliber was even throughout. The sleeve's staple line was inspected and there was no evidence of ischemia, bleeding or dehiscence. At that point the gastroscope was withdrawn from the patient?s mouth while we were decompressing the bowel and the stomach from any remaining air. I looked into the lesser sac to see how the sleeve was situating and it was situating well. There was no bleeding from the staple line, spleen, or short gastric vessels. The Mediflex retractor was removed, and the undersurface of the liver was inspected and there was no bleeding. The patient was placed in supine position. I closed the fascial defect of the 12 mm port site with a figure of eight #1 Polysorb suture. Then 30cc of Ropivacaine plain with 10 mg of Dexamethasone were used to infiltrate the fascial closure as well as all skin incisions. A total of 7ml of Zynrelef was applied in the Adria wound. At this point, the abdomen was deflated, all ports were removed under direct vision, and no bleeding was noted from any of the port sites. The skin incisions were irrigated with saline and were closed with 4-0 absorbable monofilament sutures. Steri-Strips and OpSites were used to cover all incisions. The patient was extubated and was transferred in stable condition to the recovery room for further care. I was present and performed all patterson parts of the procedure. Ms. Reynolds was the evaluation assistant. There were no residents to assist with this case. Refugio Terrazas MD, PhD, FACS Surgeon: Larry Terrazas MD Anesthesia: GETA, local and other (TAP block & 7ml Zynrelef) Was an Compliance Intern used for this Procedure?: No Compliance Intern: Felisa Reynolds Estimated blood loss (mL): 10 IV fluids (mL): 2,300 Urine output (mL): 0 (No Holman to record output) Pathology: other (Stomach) Condition: stable Disposition: PACU
--- NOTE | 2022-03-08 16:55 | PM.DS ---
DS: Providers Provider Date of Service: 03/09/22 Date of admission: 03/08/22 11:57 Primary care physician: Unknown Physician DS: Diagnosis Discharge Diagnosis (1) Morbid obesity: Status: Acute (2) Non-insulin dependent diabetes mellitus: Status: Acute (3) Hypothyroid: Status: Acute (4) Cholelithiasis: Status: Acute (5) Stress incontinence: Status: Acute DS: Summary Hospital Course Hospital Course: ADMITTING DIAGNOSIS: morbid obesity, hypothyroidism, asthma DISCHARGE DIAGNOSIS: same, s/p laparoscopic sleeve gastrectomy PAST SURGICAL HISTORY: none PROCEDURE: upper endoscopy, laparoscopic sleeve gastrectomy DISCHARGE SUMMARY: History of Present Illness: The patient is a 46 year-old woman with a BMI of 47kg/m2 and associated co-morbidities as described above. The patient had extensive work-up, lost 27.7lbs preoperatively and was electively scheduled for laparoscopic, possible open sleeve gastrectomy and gastropexy. Risks and complications of the surgery were discussed with the patient in advance, particularly the possibility of , pulmonary embolism, anastomotic leak, bleeding, bowel injury, GERD, cardiac, renal or pulmonary complications. The patient understood all the risks and was in agreement with the surgical plan. Hospital Course: The patient underwent an uneventful laparoscopic sleeve gastrectomy with gastropexy on the day of admission. Postoperatively, the patient was transferred to the surgical floor. The patient received IV Acetaminophen and IV dilaudid for pain control. Patient was started on bariatric phase 1 diet POD #0. On postoperative day one, the patient was feeling well without nausea, vomiting, fevers, or tachycardia. The patient had some mild incisional pain and the abdomen was soft. On the morning of postoperative day one, the patient was continued on 1 ounce of water or ice every half hour. During the day, the patient did fairly well, having some incisional pain, but able to ambulate adequately and to tolerate liquids well. Since the patient is doing well, we decided that the patient was ready to be discharged. The patient was given instructions to follow-up with me next week and to call my office for any fever over 101, persistent abdominal pain, nausea, vomiting, GERD, symptoms of DVT such as calf tenderness, or leg swelling, or pulmonary embolism such as chest pain or shortness of breath. The patient was also instructed to drink 40-60 ounces of liquids per day using the 1-ounce cups. The patient had been given prescriptions for Tylenol for pain, Zofran prn for nausea, and pantoprazole and carafate previously. The patient was encouraged to ambulate and use the incentive spirometer. The patient was allowed to shower, but no baths, and encouraged to stay active at home. All of these instructions were given to the patient personally. All questions were answered and the patient understood all instructions, the instructions were also given to the patient in print. Time Spent with Patient Time attestation: Total time managing care of this patient today ____ minutes. Discharge coordination time: Less than 30 minutes Quality: Safe Use of Opioids Does Pt have an Active Cancer Diagnosis on the Problem List?: No Quality: Stroke Does the patient have a stroke diagnosis?: No Physical Exam Vital Signs: Vital Signs: Last Vital Signs Temp 98.0 F 03/08/22 12:18 Pulse 98 03/08/22 12:18 Resp 18 03/08/22 12:18 BP 109/63 03/08/22 12:18 Pulse Ox 98 03/08/22 12:18 O2 Del Method 03/08/22 12:18 BMI result Body Mass Index 37.5 DS: Data Data Completed and Pending Pending studies at discharge: Pending at discharge 03/08/22 16:14 Surgical [PTH] Routine Labs on day of discharge: Laboratory Results - last 24 hr 03/08/22 03/08/22 12:02 12:02 Urine Test NEGATIVE COVID-19 ([facility]) Negative COVID-19 Clin Com See Note Discharge Plan Discharge Anticipated Discharge Date/Time: 03/09/22 10:49 Patient Disposition: Home, Self-Care Discharge Diagnosis: s/p sleeve gastrectomy Referrals: Physician,Unknown J [Primary Care Provider] - 1 Week Discharge Medications: Continued levothyroxine 125 mcg tablet 1 tab DAILY epinephrine 0.3 mg/0.3 mL auto-injector IM DIRECTED oxybutynin chloride 10 mg tablet extended release 24hr 10 mg PO DAILY cetirizine 10 mg tablet 10 mg PO DAILY montelukast 10 mg tablet 10 mg PO BEDTIME fluticasone propionate 50 mcg/actuation spray,suspension 2 spray intranasal DAILY Rx Instructions: administer into each nostril ketotifen fumarate [Allergy Eye (ketotifen)] 0.025 % (0.035 %) drops 1 drp ophthalmic (eye) BID Rx Instructions: administer at least 8 hours apart pantoprazole 40 mg tablet,delayed release (DR/EC) 40 mg PO DAILY Qty: 30 0RF sucralfate 100 mg/mL suspension 10 ml PO BID Qty: 400 2RF ondansetron HCl 4 mg tablet 4 mg PO Q12H Qty: 20 0RF Discontinued cholecalciferol (vitamin D3) 125 mcg (5,000 unit) capsule 125 mcg PO DAILY Qty: 90 1RF cyanocobalamin (vitamin B-12) 500 mcg tablet 500 mcg PO DAILY Qty: 90 1RF vitamin A palmitate 10,000 unit capsule 10,000 unit PO DAILY Qty: 90 1RF polyethylene glycol 3350 [Miralax] 17 gram powder in packet 17 g PO DAILY Qty: 14 0RF Rx Instructions: Mix each packet with 8oz of water and do 7 packets on 03/06/22 and another 7 packets on 03/07/22 Discharge Orders: Discharge Order (Routine); Ordered 03/09/22 Ordered By: Larry Terrazas Activity on Discharge: No heavy lifting Stand Alone Forms: Patient Portal Discharge page Care Plan Goals: weight loss Health Concerns: morbid obesity Plan of Treatment: No tub baths, sex or returning to work until discussed at first post op appointment. No exercise, alcohol, tobacco or illegal drug use. Continue to use incentive spirometer hourly while awake. Walk in home for 5- 10 minutes every 2 hours during the first week. Continue phase 1 diet today and start phase 2 diet tomorrow morning. Follow all instructions in the bariatric handbook and call with any questions. 1. Please call your doctor or come back to the emergency room should any new symptoms arise. 2. You will receive a courtesy call from [facility] 24-48 hours after discharge. 3. Activity: abstain from alcohol, practice limited stair climbing, no bending, no driving, no exercise, no illicit substances, no lifting, no sex, no tub bath, no work. 4. Diet: continue as discussed with bariatric team.. 5. Dressing Change/Wound Care: Do not change or remove surgical dressings unless they are wet or soiled. 6. Call your doctor if: - Your temperature exceeds 101.5 F - You experience excessive pain or swelling - You have an unexpected reaction to medication - You have excessive bleeding - You experience continued vomiting/nausea - Your incision begins to separate - Your incision shows signs of infection such as increased redness, swelling, excessive pain, heat, or drainage (light blood or clear fluid is normal) 7. General instructions: No lifting greater than 5 lbs for the next 4 weeks[address] within 24 hours of taking narcotic pain medications. If you do not move your bowels in the next 2 days, please take milk of magnesia over the counter. Please follow the post op diet and do not advance your diet until you are seen in the office in about 2 weeks. Please walk around your home every hour or two to prevent blood clots from forming in your legs. You do not need to wake from sleeping to walk. Please sleep in a bed or couch to prevent kinking at the hips and knees. Please take your incentive spirometer (your lung vise hand) home with you and use it for the next few days to prevent pneumonias. You may shower, no hot tubs, baths or swimming pools. Please call the office with any questions or concerns such as increasing abdominal pain, fever, chills, shortness of breath, chest pain, leg pain or swelling, or redness or drainage from your incisions. Do not hesitate to contact the office with any questions at . The patient's medical history has been reviewed and they are considered low risk for post op DVT and therefore DVT prophylaxis is not considered necessary. Travel after surgery was reviewed. The patient has not disclosed any travel plans during the first 30 days after surgery and they have been advised that within the first 30 days after surgery any bus, plane, train or car travel over 2 hours in duration is contraindicated due to the possibility of developing blood clots from immobility. Any travel, needs to include periods of ambulation of 10 minutes in duration every 2 hours. The patient was instructed to discuss any plans for travel during this period with their bariatric surgeon. Assessment: stable, post op sleeve gastrectomy Discharge Date/Time: 03/09/22 10:55
[2022-03-08 17:15] LABS: Hematocrit 34.6 % (37.0-47.0); Hemoglobin 11.1 g/dl (12.0-16.0)
[2022-03-08 17:31] LABS: Anion Gap 17 (12-20); Blood Urea Nitrogen 8 mg/dL (9-16); Calcium 8.6 mg/dL (8.4-10.2); Carbon Dioxide 16 mmol/L (22-29); Chloride 108 mmol/L (96-108); Creatinine Clr Calc Pharmacy 92.7; Estimated Glomerular Filt Rate > 60; Glucose Random 77 mg/dL (60-115); Potassium 4.2 mmol/L (3.3-5.1); Sodium 137 mmol/L (135-145)
[2022-03-08] MEDS: Lactated Ringers 1,000 ML 100 ML IVCONT (17:36)
[2022-03-08] MEDS: Famotidine/PF 20 MG/2 ML VIAL IVPUSH ×2 (17:36→22:15)
[2022-03-08] MEDS: ondansetron HCL 4 MG/2 ML VIAL IVPUSH (20:17)
[2022-03-08] MEDS: ceFAZolin Sodium/Dextrose,Iso 2 GM/50 ML PIGGYBACK IV (20:18)
[2022-03-08] MEDS: Acetaminophen 1,000 MG/100 ML PIGGYBACK 16.7 MG IV (22:16)
[2022-03-09] MEDS: ondansetron HCL 4 MG/2 ML VIAL IVPUSH (02:54)
[2022-03-09] MEDS: Lactated Ringers 1,000 ML 100 ML IVCONT (02:59)
[2022-03-09] MEDS: Acetaminophen 1,000 MG/100 ML PIGGYBACK 16.7 MG IV (03:00)
[2022-03-09 03:20] VITALS: BP 116/59; PULSE 89; RESP 18; TEMP 36.7; O2SAT 97
[2022-03-09 06:48] LABS: MANUAL DIFF FLAG NO
[2022-03-09 06:52] LABS: Basophils Percent Auto 0.2 % (0-2); Hematocrit 36.6 % (37.0-47.0); Hemoglobin 11.6 g/dl (12.0-16.0); Imm Gran Abs Auto 0.01 X10*3/uL (0.00-0.03); Imm Gran Pct Auto 0.2 % (0.0-0.4); Lymphocytes Absolute Auto 0.6 X10*3/uL (1.2-4.9); Lymphocytes Percent Auto 9.6 % (20-40); Mean Corpuscular HGB Conc 31.7 g/dl (31.0-35.0); Mean Corpuscular Hemoglobin 26.1 pg (27.0-33.0); Mean Corpuscular Volume 82.4 fL (80.0-98.0); Mean Platelet Volume 12.4 fL (9.4-12.3); Monocytes Absolute Auto 0.2 X10*3/uL (0.1-1.2); Neutrophils Absolute Auto 5.7 x10*3/uL (2.0-8.3); Platelet Count 169 X10*3/uL (160-400); Red Blood Count 4.44 X10*6/uL (4.20-5.50); Red Cell Distribution Width 14.6 % (11.0-16.0); White Blood Count 6.6 X10*3/uL (4.8-10.8)
--- NOTE | 2022-03-09 07:11 | PHA.MEDREC ---
Pharmacy Consult ? Medication Reconciliation Pharmacy has completed the medication reconciliation.
[2022-03-09 07:12] LABS: Anion Gap 18 (12-20); Blood Urea Nitrogen 7 mg/dL (9-16); Calcium 8.6 mg/dL (8.4-10.2); Carbon Dioxide 13 mmol/L (22-29); Chloride 109 mmol/L (96-108); Creatinine Clr Calc Pharmacy 91.5; Estimated Glomerular Filt Rate > 60; Glucose Random 120 mg/dL (60-115); Potassium 4.6 mmol/L (3.3-5.1); Sodium 135 mmol/L (135-145)
[2022-03-09] MEDS: Famotidine/PF 20 MG/2 ML VIAL IVPUSH (07:34)
[2022-03-09 08:00] VITALS: BP 115/57; PULSE 79; RESP 18; TEMP 36.2; O2SAT 100
--- NOTE | 2022-03-09 09:04 | MHC.CM.PN ---
pt dxcd home no skilled servcies ordered by
--- NOTE | 2022-03-09 11:06 | HO.POSTANES ---
Post Anesthesia Evaluation Post Anesthesia Evaluation Vital Signs: Vital Signs Temp Pulse Resp BP Pulse Ox O2 Del Method 03/09/22 08:00 97.1 F 79 18 115/57 L 100 Room Air 03/09/22 03:20 98.0 F 89 18 116/59 L 97 Room Air Anesthesia: General Endotracheal-GETA Mental Status: Awake Pain Control: Satisfactory Nausea/Vomiting: None Hydration: Adequate Anesthesia-Related Issues: No Anes. Related Issues
== END 2022-03-09 10:55 | disposition home or self-care (01) | DRG 403 ==
LOC: HO.SSSA 16:55 → HO.S3 17:17
PROVIDERS: Nurse Practitioner; Physician Assistant; Admitting Provider Surgery; PCP Internal Medicine; Visit Provider Surgery
PROC: 0DB64Z3 Excision of Stomach, Percutaneous Endoscopic Approach, Vertical (ICD-10-PCS; CPT 43845; principal; 2022-03-08 13:40)
DX: E66.01 Morbid (severe) obesity due to excess calories (principal); E03.9 Hypothyroidism, unspecified; K80.20 Calculus of gallbladder without cholecystitis without obstruction; E11.9 Type 2 diabetes mellitus without complications; N39.3 Stress incontinence (female) (male); Z20.822 Contact with and (suspected) exposure to COVID-19; Z91.041 Radiographic dye allergy status; Z91.013 Allergy to seafood; Z68.41 Body mass index [BMI] 40.0-44.9, adult; Z79.51 Long term (current) use of inhaled steroids; Z79.890 Hormone replacement therapy; Z79.899 Other long term (current) drug therapy
CPT/HCPCS: 36415; 80048; 81025; 85014; 85018; 85025; 86850; 86900; 86901; 87635; 88307; 88342; A4649; C9088; J0131; J0690; J1100; J1170; J2250; J2405; J2795; J3010

== ENCOUNTER → 2022-03-15 09:10 | Outpatient (BNVA) | payer OTHER, SELFPAY | PROVIDERS: PCP Internal Medicine; Visit Provider Physician Assistant Surgical | DX: Z13.89 Encounter for screening for other disorder (principal) ==

== ENCOUNTER → 2022-03-16 10:47 | Outpatient (BNVA) | payer OTHER, SELFPAY | PROVIDERS: PCP Internal Medicine; Visit Provider Dietitian, Registered | DX: E66.9 Obesity, unspecified (principal); Z68.37 Body mass index [BMI] 37.0-37.9, adult; Z98.84 Bariatric surgery status; Z71.3 Dietary counseling and surveillance | CPT/HCPCS: 97803 ==

== ENCOUNTER → 2022-03-29 14:38 | Outpatient (BNVA) | payer OTHER, SELFPAY | PROVIDERS: PCP Internal Medicine; Visit Provider Physician Assistant Surgical | DX: E66.9 Obesity, unspecified (principal); F43.20 Adjustment disorder, unspecified; Z68.36 Body mass index [BMI] 36.0-36.9, adult; Z98.84 Bariatric surgery status | CPT/HCPCS: 99212 ==

== ENCOUNTER → 2022-04-11 13:19 | Outpatient (BNVA) | payer OTHER, SELFPAY | PROVIDERS: PCP Internal Medicine; Visit Provider Physician Assistant Surgical | DX: E66.9 Obesity, unspecified (principal); Z98.84 Bariatric surgery status; Z68.34 Body mass index [BMI] 34.0-34.9, adult | CPT/HCPCS: 99212 ==

== ENCOUNTER → 2022-05-09 12:24 | Outpatient (BNVA) | payer OTHER, SELFPAY | PROVIDERS: PCP Internal Medicine; Visit Provider Physician Assistant Surgical | DX: E66.9 Obesity, unspecified (principal); F43.20 Adjustment disorder, unspecified; Z68.31 Body mass index [BMI] 31.0-31.9, adult; Z90.3 Acquired absence of stomach [part of] | CPT/HCPCS: 99212 ==

== ENCOUNTER 2022-05-20 14:45 | Outpatient (REF) | payer OTHER, SELFPAY | END 2022-05-20 14:46 | disposition home or self-care (01) | LOC: HO.MAMMO 14:45 | PROVIDERS: PCP Internal Medicine; Visit Provider Internal Medicine | DX: Z13.89 Encounter for screening for other disorder (principal) ==

== ENCOUNTER → 2022-06-06 12:43 | Outpatient (BNVA) | payer OTHER, SELFPAY | PROVIDERS: PCP Internal Medicine; Referring Provider Internal Medicine; Visit Provider Physician Assistant Surgical | DX: E66.9 Obesity, unspecified (principal); Z68.30 Body mass index [BMI] 30.0-30.9, adult | CPT/HCPCS: 99212 ==

== ENCOUNTER → 2022-07-25 12:43 | Outpatient (BNVA) | payer OTHER, SELFPAY | PROVIDERS: PCP Internal Medicine; Referring Provider Internal Medicine; Visit Provider Physician Assistant Surgical | DX: E66.3 Overweight (principal); Z98.84 Bariatric surgery status; Z68.29 Body mass index [BMI] 29.0-29.9, adult | CPT/HCPCS: 99212 ==

== ENCOUNTER → 2022-09-05 13:22 | Outpatient (BNVA) | payer OTHER, SELFPAY | PROVIDERS: PCP Internal Medicine; Visit Provider Dietitian, Registered | DX: E66.9 Obesity, unspecified (principal); Z68.29 Body mass index [BMI] 29.0-29.9, adult; Z98.84 Bariatric surgery status | CPT/HCPCS: 97803 ==

== ENCOUNTER 2022-10-06 13:54 | Outpatient (REF) | payer OTHER, SELFPAY ==
[2022-10-06 18:55] LABS: TSH reflex Free T4 0.01 uIU/mL (0.32-4.0)
== END 2022-10-06 13:55 | disposition home or self-care (01) ==
LOC: HO.CHCLDS 13:54
PROVIDERS: Visit Provider Internal Medicine
DX: E03.9 Hypothyroidism, unspecified (principal)
CPT/HCPCS: 36415; 84439; 84443

== ENCOUNTER 2022-10-19 13:13 | Outpatient (AMB) | payer OTHER, SELFPAY ==
--- NOTE | 2022-10-19 13:29 | A.OFFVIS_ITS ---
Intake VS Expanded 10/19/22 13:32 Height 5 ft 1.5 in Weight 150 lb 9.6 oz BMI 28.0 BP 117/69 Blood Pressure Location Lt brachial Blood Pressure Position Sitting Pulse 62 Pulse Source Pulse Oximeter Temp 98 F Temperature Source Temporal Artery Scan Pulse Oximetry 98 Oxygen Delivery Method Room Air Body Fat 34.2 Body Fat Percentage 22.7 Free Fat Mass 116.4 Muscle Mass 110.4 Visceral Mass 4.0 Water Mass 82.8 BMR 1,533 Neck Circumference 13 in Waist Circumference 30 in Intake Visit Reasons: (OV) PO LSG 03/01/22 Intake Note: Patient is seen in office for office visit post LSG. Behavioral Consultant Required: No Accompanied by: Self / Same As Patient Allergies Iodinated Contrast Media [IV Contrast Dye] Allergy (Severe, Verified 10/19/22 13:41) Anaphylaxis shellfish derived Allergy (Severe, Verified 10/19/22 13:41) Anaphylaxis Medication List - Last Reconciled 10/19/22 by SANCHO Lozoya cetirizine 10 mg PO DAILY epinephrine IM DIRECTED fluticasone propionate 50 mcg/actuation 2 sprays intranasal DAILY inulin (Fiber Gummies) 2 grams PO DAILY ketotifen fumarate 0.025%(0.035%) (Allergy Eye (ketotifen)) 1 drp ophthalmic (eye) BID levothyroxine 100 mcg PO DAILY montelukast 10 mg PO BEDTIME oxybutynin chloride ER 10 mg PO DAILY HPI HPI Comments History of Present Illness Details This?is a?47?yo female who is s/p LSG 03/01/2022. Presents for 7 month post op visit. Weight at last visit on 09/05/2022 was 156 pounds with a BMI of 29, weight today is 150.6 pounds, representing a 5.4 pound weight loss with a BMI today of 28.? No complaints of nausea, emesis, abdominal pain or reflux, or constipation. Present meal plan includes: 70g protein minimum 7am Isopure protein shake with 8oz fairlife milk 9am 1 egg 12pm protein, veg, optional carb 3pm yogurt or fruit or egg 6pm protein, veg, carb optional sometimes does not finish all of her meal taking MVI All meals last 20 - 30 minutes and does not drink and eat at the same time. Exercise routine includes: Treadmill every day plus upper body strength training Did the patient ever have any of these conditions and are they resolved or still being treated? GERD: never DALTON:? never DM:? was prediabetic- resolved HTN:? never Hyperlipidemia:? never Post op complications:? never Heartburn symptoms? none Score 0-5: 0=no symptoms, 1=noticeable but not bothersome (slight or occasional), 2=noticeable, bothersome but not daily, 3=bothersome and daily, 4=affects daily activities, 5=incapacitating, unable to do daily activities How bad is the heartburn: 0 Heartburn when lying down: 0 Heartburn when standing up: 0 Heartburn after meals: 0 Does heartburn change your diet: 0 Does heartburn wake you up from sleep: 0 Do you have difficulty swallowin Do you have pain with swallowin If you take medication for reflux, does this affect your daily life: 0 Total score: 0 [facility] Medical History (Updated 07/25/22 @ 13:36 by SANCHO Lozoya) Adjustment disorder, unspecified Arthritis Cholelithiasis Environmental and seasonal allergies Hypothyroid Stress incontinence Surgical History delivery delivered History of root canal procedure S/P laparoscopic sleeve gastrectomy Family History Mother Anxiety Developmental delay Father Diabetes Daughter No known health problems Daughter Premature baby Son Hypoglycemia Eye abnormalities Obstructive sleep apnea (adult) (pediatric) Developmental delay Social History Household Members: Spouse and Children Housing: House Are you a primary family day care provider to a significant other at home: No Do you presently have visiting nurse or other home services: No Alcohol intake: never Patient Tobacco Use Status: Never used Tobacco Current occupational status: employed Current occupation: [employer] Physical Exam Const General: cooperative, comfortable and no acute distress Orientation/consciousness: patient oriented x3 GI Other: soft, nontender, nondistended, incisions well healed, no hernia, no masses Neuro General: patient oriented x3 Assessment & Plan Assessment & Plan (1) Overweight: Code(s): E66.3 - Overweight (2) S/P laparoscopic sleeve gastrectomy: Comment: 12/27/22 Larry Terrazas MD Code(s): Z98.84 - Bariatric surgery status Plan Pt is doing well, no surgical complications after sleeve gastrectomy and with excellent weight loss results. She is happy at current weight and on a maintenance meal plan. She will text Rossi with any questions as she has difficulty getting insurance to cover formal appts with RD. Labs ordered. RTC in early Mar for annual visit. Patient is overweight and is not considered stable at this time. I spent a total of 30 minutes reviewing/updating records, examining the patient and counseling the patient on weight management as detailed above. Orders: Orders Vitamin B12 and Folate Today Z98.84 - Bariatric surgery status Ferritin Today Z98.84 - Bariatric surgery status IRON PROFILE Today Z98.84 - Bariatric surgery status PTHI Today Z98.84 - Bariatric surgery status Vitamin A Today Z98.84 - Bariatric surgery status Vitamin B1 Today Z98.84 - Bariatric surgery status Vitamin D 25-OH Total Today Z98.84 - Bariatric surgery status Zinc Today Z98.84 - Bariatric surgery status Complete Blood Count Auto Diff Today Z98.84 - Bariatric surgery status Coding Level of Care Code Est Pt Level 4 (43061) Diagnoses Overweight E66.3 S/P laparoscopic sleeve gastrectomy Z98.84
[2022-10-19 13:32] VITALS: BP 117/69; PULSE 62; TEMP 36.6; O2SAT 98; BMI 28.0
== END 2022-10-19 14:02 | disposition home or self-care (01) ==
PROVIDERS: PCP Internal Medicine; Visit Provider Physician Assistant Surgical
DX: E66.3 Overweight (principal); Z68.28 Body mass index [BMI] 28.0-28.9, adult; Z90.3 Acquired absence of stomach [part of]; Z98.84 Bariatric surgery status
CPT/HCPCS: 99214

== ENCOUNTER 2022-10-19 13:13 | Outpatient (REF) | payer OTHER, SELFPAY ==
[2022-10-19 14:25] LABS: MANUAL DIFF FLAG NO
[2022-10-19 15:30] LABS: Basophils Percent Auto 0.3 % (0-2); Eosinophils Absolute Auto 0.2 X10*3/uL (0.0-0.4); Eosinophils Percent Auto 2.1 % (0-4); Hematocrit 39.8 % (37.0-47.0); Hemoglobin 12.7 g/dl (12.0-16.0); Imm Gran Abs Auto 0.02 X10*3/uL (0.00-0.03); Imm Gran Pct Auto 0.3 % (0.0-0.4); Lymphocytes Absolute Auto 2.4 X10*3/uL (1.2-4.9); Lymphocytes Percent Auto 33.1 % (20-40); Mean Corpuscular HGB Conc 31.9 g/dl (31.0-35.0); Mean Corpuscular Volume 84.7 fL (80.0-98.0); Mean Platelet Volume 11.6 fL (9.4-12.3); Monocytes Absolute Auto 0.5 X10*3/uL (0.1-1.2); Monocytes Percent Auto 6.8 % (2-11); Neutrophils Absolute Auto 4.1 x10*3/uL (2.0-8.3); Neutrophils Percent Auto 57.4 % (45-73); Platelet Count 196 X10*3/uL (160-400); Red Cell Distribution Width 13.2 % (11.0-16.0); White Blood Count 7.1 X10*3/uL (4.8-10.8)
[2022-10-19 17:09] LABS: Iron 155 mcg/dL (30-160); Percent Iron Saturation 54 % (15-50); Total Iron Binding Capacity 288 mcg/dL (228-428); Unsaturated Iron Binding 133 ug/dL
[2022-10-19 17:29] LABS: Ferritin 41 ng/mL (10-250)
[2022-10-19 17:37] LABS: Folate 10.1 ng/mL (> or = 4.0); Vitamin B12 433 pg/mL (200-900)
[2022-10-21 19:38] LABS: Calcium (PTHI) 9.8 mg/dL (8.6-10.2); PTHI 36 pg/mL (16-77)
[2022-10-23 15:43] LABS: Zinc 73 mcg/dL (60-130)
[2022-10-25 12:33] LABS: Vitamin A 28 mcg/dL (38-98)
[2022-10-25 15:04] LABS: Vitamin B1 44 nmol/L (8-30)
== END 2022-10-19 13:14 | disposition home or self-care (01) ==
LOC: HO.LAB 13:13
PROVIDERS: PCP Internal Medicine; Visit Provider Physician Assistant Surgical
DX: E66.3 Overweight (principal); Z71.3 Dietary counseling and surveillance; Z98.84 Bariatric surgery status; Z79.899 Other long term (current) drug therapy; Z68.28 Body mass index [BMI] 28.0-28.9, adult
CPT/HCPCS: 36415; 82306; 82607; 82728; 82746; 83540; 83970; 84425; 84590; 84630; 85025; 99212

== ENCOUNTER 2022-11-21 13:21 | Outpatient (REF) | payer OTHER, SELFPAY ==
[2022-11-21 15:42] LABS: TSH reflex Free T4 2.43 uIU/mL (0.32-4.0)
== END 2022-11-21 13:22 | disposition home or self-care (01) ==
LOC: HO.CHCLDS 13:21
PROVIDERS: Visit Provider Internal Medicine
DX: E03.9 Hypothyroidism, unspecified (principal)
CPT/HCPCS: 36415; 84443

== ENCOUNTER 2023-01-06 14:02 | Outpatient (REF) | payer OTHER, SELFPAY ==
--- NOTE | ~2023-01-06 | MM_ITS ---
EXAMINATION: MM SCREENING DIGITAL BREAST TOMOSYNTHESIS, BILATERAL CLINICAL INFORMATION: Screening. Asymptomatic. COMPARISON: Mammography: This study is compared with prior exams dating back to 2017. TECHNIQUE: Digital breast tomosynthesis is performed in both the craniocaudal and mediolateral oblique views along with computer-aided detection (CAD). Synthesized 2D images are generated from the tomosynthesis. FINDINGS: There are scattered areas of fibroglandular density (ACR BI-RADS breast composition Category b). There are no significant masses, abnormal calcifications, or other abnormalities. There is benign, layering milk of calcium in the superior aspect of the left breast. MM/MM tomosynthesis screening BI IMPRESSION: No mammographic evidence of malignancy. ASSESSMENT: BI-RADS BI-RADS 2 - Benign Findings RECOMMENDATION: Routine annual mammography screening. 1 year F/U This examination should not preclude the clinical evaluation of a suspicious palpable abnormality. This patient's information was entered into a reminder system with a target due date for their next mammogram.
== END 2023-01-06 14:03 | disposition home or self-care (01) ==
LOC: HO.MAMMO 14:02
PROVIDERS: PCP Internal Medicine; Visit Provider Internal Medicine
DX: Z12.31 Encounter for screening mammogram for malignant neoplasm of breast (principal)
CPT/HCPCS: 77063; 77067

== ENCOUNTER → 2023-01-06 14:30 | Outpatient (BNV) | payer OTHER, SELFPAY | PROVIDERS: PCP Internal Medicine; Visit Provider Radiology Diagnostic Radiology | DX: Z12.31 Encounter for screening mammogram for malignant neoplasm of breast (principal) | CPT/HCPCS: 77063; 77067 ==

== ENCOUNTER 2023-03-15 10:50 | Outpatient (REF) | payer OTHER, SELFPAY | END 2023-03-15 10:51 | disposition home or self-care (01) | LOC: HO.CHCLDS 10:50 | PROVIDERS: Visit Provider Internal Medicine | DX: E03.9 Hypothyroidism, unspecified (principal) | CPT/HCPCS: 36415; 84439; 84443 ==

== ENCOUNTER 2023-03-21 10:48 | Outpatient (AMB) | payer OTHER, SELFPAY ==
--- NOTE | 2023-03-21 09:40 | A.OFFVIS_ITS ---
Intake VS Expanded 03/21/23 09:43 Height 5 ft 1.5 in Weight 143 lb BMI 26.6 Intake Visit Reasons: (TELEPHONE) PO LSG 03/01/22 Allergies Iodinated Contrast Media [IV Contrast Dye] Allergy (Severe, Verified 10/19/22 13:41) Anaphylaxis shellfish derived Allergy (Severe, Verified 10/19/22 13:41) Anaphylaxis Medication List - Last Reconciled 03/21/23 by SANCHO Lozoya cetirizine 10 mg PO DAILY epinephrine IM DIRECTED fluticasone propionate 50 mcg/actuation 2 sprays intranasal DAILY inulin (Fiber Gummies) 2 grams PO DAILY ketotifen fumarate 0.025%(0.035%) (Allergy Eye (ketotifen)) 1 drp ophthalmic (eye) BID levothyroxine 100 mcg PO DAILY montelukast 10 mg PO BEDTIME oxybutynin chloride ER 10 mg PO DAILY vitamin A palmitate 10,000 units PO DAILY HPI HPI Comments History of Present Illness Details This?is a?48?yo female who is s/p LSG 03/01/2022. Presents for 1 year post op visit. Weight at last visit on 10/19 was 150.6 pounds with a BMI of 28, weight today is 143 pounds, representing a 7.6 pound weight loss with a BMI today of 26.6.? No complaints of nausea, emesis, abdominal pain or reflux, or constipation. Pt has needed thyroid meds adjusted recently, recent TSH level Present meal plan includes: 70g protein minimum 7am Isopure protein shake with 8oz fairl vanessa milk 9am 1 egg 12pm protein, veg, optional carb 3pm yogurt or fruit or egg 6pm protein (often eggs), veg (cucumbers or carrots), carb optional sometimes does not finish all of her meal will also incorporate some fruits taking MVI All meals last 20 - 30 minutes and does not drink and eat at the same time. Exercise routine includes: Treadmill every day plus upper body strength training Did the patient ever have any of these conditions and are they resolved or still being treated? GERD: never DALTON:? never DM:? was prediabetic- resolved HTN:? never Hyperlipidemia:? never Post op complications:? never PFSH Medical History (Updated 07/25/22 @ 13:36 by SANCHO Lozoya) Stress incontinence Cholelithiasis Arthritis Environmental and seasonal allergies Adjustment disorder, unspecified Hypothyroid Surgical History delivery delivered History of root canal procedure S/P laparoscopic sleeve gastrectomy Family History Mother Anxiety Developmental delay Father Diabetes Daughter No known health problems Daughter Premature baby Son Hypoglycemia Eye abnormalities Obstructive sleep apnea (adult) (pediatric) Developmental delay Social History Household Members: Spouse and Children Housing: House Are you a primary lawn care specialist to a significant other at home: No Do you presently have visiting nurse or other home services: No Alcohol intake: never Patient Tobacco Use Status: Never used Tobacco Current occupational status: employed Current occupation: [employer] Assessment & Plan Assessment & Plan (1) Overweight: Code(s): E66.3 - Overweight (2) S/P laparoscopic sleeve gastrectomy: Comment: 03/08/22 Larry Terrazas MD Code(s): Z98.84 - Bariatric surgery status Plan Pt doing well on current plan. Will recheck CBC/vitamin levels as pt reports ongoing hair loss; may be related to thyroid abnormalities but can make sure no vitamin deficiencies are contributing. She will continue same meal plan as it works well for her and can reach out to Rossi via text if she has any issues. RTC 6 months for 18 month visit. Patient is overweight and is not considered stable at this time. I spent a total of 30 minutes reviewing/updating records, examining the patient and counseling the patient on weight management as detailed above. Orders: Orders Comprehensive Met. Panel Today Z98.84 - Bariatric surgery status Vitamin B12 and Folate Today Z98.84 - Bariatric surgery status Zinc Today Z98.84 - Bariatric surgery status Vitamin A Today Z98.84 - Bariatric surgery status Vitamin D 25-OH Total Today Z98.84 - Bariatric surgery status IRON PROFILE Today Z98.84 - Bariatric surgery status Complete Blood Count Auto Diff Today Z98.84 - Bariatric surgery status Vitamin B1 Today Z98.84 - Bariatric surgery status Telehealth Telehealth Location of provider rendering services: practice address Location of patient: address on file Patient Identification confirmed using: Name, : Yes Telehealth method: voice only Patient verbally consented to treatment: Yes Patient verbally consented to billing insurance company: Yes Patient informed of any privacy concerns related to visit: Yes Minutes spent on Phone/Video with Pt.: 12 Coding Level of Care Code Tele Est Pt Level 4 (17158) Diagnoses Overweight E66.3 S/P laparoscopic sleeve gastrectomy Z98.84
[2023-03-21 09:43] VITALS: BMI 26.6
== END 2023-03-21 11:00 | disposition home or self-care (01) ==
LOC: HO.HBS 10:48
PROVIDERS: PCP Internal Medicine; Visit Provider Physician Assistant Surgical
DX: E66.3 Overweight (principal); Z98.84 Bariatric surgery status
CPT/HCPCS: 99214

== ENCOUNTER → 2023-03-21 10:48 | Outpatient (BNVA) | payer OTHER, SELFPAY | PROVIDERS: PCP Internal Medicine; Visit Provider Physician Assistant Surgical | DX: Z98.84 Bariatric surgery status (principal); E66.3 Overweight ==

== ENCOUNTER 2023-03-23 10:17 | Outpatient (REF) | payer OTHER, SELFPAY ==
[2023-03-23 13:49] LABS: Folate 10.4 ng/mL (> or = 4.0); Vitamin B12 547 pg/mL (200-900)
== END 2023-03-23 10:18 | disposition home or self-care (01) ==
LOC: HO.CHCLDS 10:17
PROVIDERS: PCP Internal Medicine; Visit Provider Physician Assistant Surgical
DX: Z98.84 Bariatric surgery status (principal)
CPT/HCPCS: 36415; 80053; 82306; 82607; 82746; 83540; 84425; 84590; 84630; 85025

== ENCOUNTER 2023-05-25 15:55 | Outpatient (REF) | payer OTHER, SELFPAY ==
[2023-05-28 06:44] LABS: TS Negative Control Passed; TS Panel A 0; TS Panel B 0; TS Positive Control Passed; TSpotTB Negative (Negative)
== END 2023-05-25 15:56 | disposition home or self-care (01) ==
LOC: HO.CHCLDS 15:55
PROVIDERS: Visit Provider Internal Medicine
DX: Z11.1 Encounter for screening for respiratory tuberculosis (principal)
CPT/HCPCS: 36415; 86481

== ENCOUNTER 2023-07-21 08:30 | Outpatient (REF) | payer OTHER, SELFPAY ==
[2023-07-21 15:32] LABS: TSH reflex Free T4 0.22 uIU/mL (0.32-4.0)
[2023-07-21 18:35] LABS: Free T4 (Free Thyroxine) 1.27 ng/dL (0.71-1.85)
== END 2023-07-21 08:31 | disposition home or self-care (01) ==
LOC: HO.CHCLDS 08:30
PROVIDERS: Visit Provider Internal Medicine
DX: E03.9 Hypothyroidism, unspecified (principal)
CPT/HCPCS: 36415; 84439; 84443

== ENCOUNTER 2023-08-28 11:40 | Outpatient (REF) | payer OTHER, SELFPAY ==
[2023-08-28 15:28] LABS: Alanine Aminotransferase 12 U/L (0-31); Albumin Level 3.6 g/dL (3.5-5.0); Alkaline Phosphatase 44 U/L (39-117); Anion Gap 10 (12-20); Aspartate Amino Transferase 17 U/L (5-31); Bilirubin Total 0.3 mg/dL (0.0-1.0); Blood Urea Nitrogen 11 mg/dL (9-16); Calcium 9.4 mg/dL (8.4-10.2); Carbon Dioxide 26 mmol/L (22-29); Chloride 107 mmol/L (96-108); Estimated Glomerular Filt Rate > 60; Glucose Random 75 mg/dL (60-115); Potassium 4.1 mmol/L (3.3-5.1); Sodium 139 mmol/L (135-145); Total Protein 6.6 g/dL (6.5-8.0)
[2023-08-28 15:43] LABS: TSH reflex Free T4 0.16 uIU/mL (0.32-4.0)
[2023-08-28 16:13] LABS: Free T4 (Free Thyroxine) 1.15 ng/dL (0.71-1.85)
== END 2023-08-28 11:41 | disposition home or self-care (01) ==
LOC: HO.CHCLDS 11:40
PROVIDERS: Visit Provider Internal Medicine
DX: E03.9 Hypothyroidism, unspecified (principal)
CPT/HCPCS: 36415; 80053; 84439; 84443

== ENCOUNTER 2023-08-30 10:44 | Outpatient (AMB) | payer OTHER, SELFPAY ==
--- NOTE | 2023-08-30 10:53 | MHC.OFFVISWM ---
VS Expanded 08/30/23 10:58 BP 123/67 Blood Pressure Location Rt brachial Blood Pressure Position Sitting Pulse 65 Pulse Source Pulse Oximeter Temp 97.1 F Temperature Source Temporal Artery Scan Pulse Oximetry 99 Oxygen Delivery Method Room Air Height 5 ft 1.5 in Weight 150 lb 6.4 oz BMI 28.0 Body Fat % 22.3 Body Fat Mass 33.6 Fat Free Mass 116.8 Visceral Fat Rating 4.0 Body Water % 55.3 Body Water Mass 83.2 Muscle Mass/Score 110.8 Basal Metabolic Rate/Score 1,536 Intake Visit Reasons: (OV) PO LSG 03/03/22 Allergies Iodinated Contrast Media [IV Contrast Dye] Allergy (Severe, Verified 08/30/23 10:57) Anaphylaxis shellfish derived Allergy (Severe, Verified 08/30/23 10:57) Anaphylaxis Medication List - Last Reconciled 08/30/23 by SANCHO Lozoya cetirizine 10 mg PO DAILY epinephrine IM DIRECTED fluticasone propionate 50 mcg/actuation 2 sprays intranasal DAILY inulin (Fiber Gummies) 2 grams PO DAILY ketotifen fumarate 0.025%(0.035%) (Allergy Eye (ketotifen)) 1 drp ophthalmic (eye) BID levothyroxine 100 mcg PO DAILY montelukast 10 mg PO BEDTIME oxybutynin chloride ER 10 mg PO DAILY vitamin A palmitate 10,000 units PO DAILY HPI Comments Details: This?is a?48?yo female who is s/p LSG 03/03/2022. Presents for 18 month post op visit. Weight at last visit on [] was [] pounds with a BMI of [], weight today is 150.4 pounds, representing a [] pound weight loss with a BMI today of 28.? No complaints of nausea, emesis, abdominal pain or reflux, or constipation. Pt had a ruptured appendix in June. Was hospitalized for 5 days, had surgery. Has been craving carbs since that time, munching on little things. Was experiencing low blood sugars. Present meal plan includes: 70g protein minimum 7am Isopure protein shake with 8oz fairlife milk 9am 1 egg 12pm protein, veg, optional carb 3pm yogurt or fruit or egg 6pm protein (often eggs), veg (cucumbers or carrots), carb optional sometimes does not finish all of her meal will also incorporate some fruits taking MVI Exercise routine includes: Treadmill every day plus upper body strength training Did the patient ever have any of these conditions and are they resolved or still being treated? GERD: never DALTON:? never DM:? was prediabetic- resolved HTN:? never Hyperlipidemia:? never Post op complications:? never PFSH Medical History (Updated 07/25/22 @ 13:36 by SANCHO Lozoya) Stress incontinence Cholelithiasis Arthritis Environmental and seasonal allergies Adjustment disorder, unspecified Hypothyroid Surgical History (Updated 08/30/23 @ 10:57 by Svetlana Koch CMA) Hx of appendectomy S/P laparoscopic sleeve gastrectomy History of root canal procedure delivery delivered Family History Mother Anxiety Developmental delay Father Diabetes Daughter No known health problems Daughter Premature baby Son Hypoglycemia Eye abnormalities Obstructive sleep apnea (adult) (pediatric) Developmental delay Social History Household Members: Spouse and Children Housing: House Are you a primary rn transitional care to a significant other at home: No Do you presently have visiting nurse or other home services: No Alcohol intake: never Patient Tobacco Use Status: Never used Tobacco Current occupational status: employed Current occupation: [employer] Physical Exam Vital Signs: Last Vital Signs Temp 97.1 F 08/30/23 10:58 Pulse 65 08/30/23 10:58 BP 123/67 08/30/23 10:58 Pulse Ox 99 08/30/23 10:58 Oxygen Delivery Method Room Air 08/30/23 10:58 BMI result Body Mass Index 28.0 Assessment & Plan Assessment & Plan (1) Overweight: Code(s): E66.3 - Overweight Category: Medical (2) S/P laparoscopic sleeve gastrectomy: Comment: 03/08/22 Larry Terrazas MD Code(s): Z98.84 - Bariatric surgery status Category: Surgical Plan Pt to incorporate a healthy carb at dinner time to ensure her blood sugars stay stable overnight. Reviewed body composition, she is actually underfat % and has high muscle mass. Recent TSH still abnormal, will discuss with her provider. CBC and vitamin levels ordered. RTC 6mo, pt will text me or call with any concerns between appts. Patient is overweight and is not considered stable at this time. I spent a total of 30 minutes reviewing/updating records, examining the patient and counseling the patient on weight management as detailed above. Orders: Orders Complete Blood Count Auto Diff Today Z98.84 - Bariatric surgery status Zinc Today Z98.84 - Bariatric surgery status IRON PROFILE Today Z98.84 - Bariatric surgery status Ferritin Today Z98.84 - Bariatric surgery status Vitamin B1 Today Z98.84 - Bariatric surgery status Vitamin A Today Z98.84 - Bariatric surgery status Vitamin B12 and Folate Today Z98.84 - Bariatric surgery status Vitamin D 25-OH Total Today Z98.84 - Bariatric surgery status
[2023-08-30 10:58] VITALS: BP 123/67; PULSE 65; TEMP 36.2; O2SAT 99; BMI 28.0
== END 2023-08-30 11:43 | disposition home or self-care (01) ==
PROVIDERS: PCP Internal Medicine; Visit Provider Physician Assistant Surgical
DX: E66.3 Overweight (principal); Z68.28 Body mass index [BMI] 28.0-28.9, adult; Z90.3 Acquired absence of stomach [part of]; Z98.84 Bariatric surgery status
CPT/HCPCS: 99214

== ENCOUNTER 2023-08-30 10:44 | Outpatient (REF) | payer OTHER, SELFPAY ==
[2023-08-30 11:57] LABS: MANUAL DIFF FLAG NO
[2023-08-30 12:12] LABS: Basophils Percent Auto 0.4 % (0-2); Eosinophils Absolute Auto 0.1 X10*3/uL (0.0-0.4); Eosinophils Percent Auto 1.8 % (0-4); Hematocrit 36.5 % (37.0-47.0); Hemoglobin 12.1 g/dl (12.0-16.0); Imm Gran Abs Auto 0.02 X10*3/uL (0.00-0.03); Imm Gran Pct Auto 0.3 % (0.0-0.4); Lymphocytes Absolute Auto 2.6 X10*3/uL (1.2-4.9); Lymphocytes Percent Auto 34.9 % (20-40); Mean Corpuscular HGB Conc 33.2 g/dl (31.0-35.0); Mean Corpuscular Hemoglobin 28.5 pg (27.0-33.0); Mean Corpuscular Volume 85.9 fL (80.0-98.0); Mean Platelet Volume 10.7 fL (9.4-12.3); Monocytes Absolute Auto 0.5 X10*3/uL (0.1-1.2); Monocytes Percent Auto 7.4 % (2-11); Neutrophils Percent Auto 55.2 % (45-73); Platelet Count 199 X10*3/uL (160-400); Red Blood Count 4.25 X10*6/uL (4.20-5.50); Red Cell Distribution Width 13.5 % (11.0-16.0); White Blood Count 7.3 X10*3/uL (4.8-10.8)
[2023-08-30 12:59] LABS: Iron 132 mcg/dL (30-160); Percent Iron Saturation 44 % (15-50); Total Iron Binding Capacity 303 mcg/dL (228-428); Unsaturated Iron Binding 171 ug/dL
[2023-08-30 13:21] LABS: Folate 11.9 ng/mL (> or = 4.0); Vitamin B12 475 pg/mL (200-900)
[2023-08-30 13:38] LABS: Ferritin 32 ng/mL (10-250); Vitamin D 25-OH Total 80.5 ng/mL (>30)
[2023-09-02 06:52] LABS: Zinc 86 mcg/dL (60-130)
[2023-09-04 06:38] LABS: Vitamin B1 59 nmol/L (8-30)
[2023-09-04 15:58] LABS: Vitamin A 34 mcg/dL (38-98)
== END 2023-08-30 10:45 | disposition home or self-care (01) ==
LOC: HO.LAB 10:44
PROVIDERS: PCP Internal Medicine; Visit Provider Physician Assistant Surgical
DX: E66.3 Overweight (principal); Z98.84 Bariatric surgery status; Z68.28 Body mass index [BMI] 28.0-28.9, adult
CPT/HCPCS: 36415; 82306; 82607; 82728; 82746; 83540; 84425; 84590; 84630; 85025; 99212

== ENCOUNTER 2023-11-24 12:42 | Outpatient (REF) | payer OTHER, SELFPAY ==
[2023-11-24 15:34] LABS: TSH reflex Free T4 2.28 uIU/mL (0.32-4.0)
== END 2023-11-24 12:43 | disposition home or self-care (01) ==
LOC: HO.CHCLDS 12:42
PROVIDERS: Visit Provider Internal Medicine
DX: E03.9 Hypothyroidism, unspecified (principal)
CPT/HCPCS: 36415; 84443

== ENCOUNTER 2023-11-27 11:32 | Outpatient (REF) | payer OTHER, SELFPAY ==
[2023-11-30 21:22] LABS: Zinc 67 mcg/dL (60-130)
[2023-12-01 00:18] LABS: Vitamin A 34 mcg/dL (38-98)
[2023-12-03 10:39] LABS: Vitamin B1 76 nmol/L (8-30)
== END 2023-11-27 11:33 | disposition home or self-care (01) ==
LOC: HO.LAB 11:32
PROVIDERS: PCP Internal Medicine; Visit Provider Physician Assistant Surgical
DX: Z98.84 Bariatric surgery status (principal)
CPT/HCPCS: 36415; 84425; 84590; 84630

== ENCOUNTER 2024-01-12 14:00 | Outpatient (REF) | payer OTHER, SELFPAY ==
--- NOTE | ~2024-01-12 | MM_ITS ---
EXAMINATION: MM SCREENING DIGITAL BREAST TOMOSYNTHESIS, BILATERAL CLINICAL INFORMATION: Screening. Asymptomatic. COMPARISON: Mammography: Comparison is made with available priors TECHNIQUE: Digital breast mammography with tomosynthesis is performed in both the craniocaudal and mediolateral oblique views along with computer-aided detection (CAD). FINDINGS: There are scattered areas of fibroglandular density (ACR BI-RADS breast composition Category b). There are no significant masses, abnormal calcifications, or other abnormalities. MM/MM tomosynthesis screening BI IMPRESSION: No mammographic evidence of malignancy. ASSESSMENT: BI-RADS BI-RADS 1 - Negative RECOMMENDATION: Routine annual mammography screening. 1 year F/U This examination should not preclude the clinical evaluation of a suspicious palpable abnormality. This patient's information was entered into a reminder system with a target due date for their next mammogram. Electronically signed by: Pastora Ho DO 01/22/2024 07:41 PM YVONNE
== END 2024-01-12 14:01 | disposition home or self-care (01) ==
LOC: HO.MAMMO 14:00
PROVIDERS: PCP Internal Medicine; Visit Provider Internal Medicine
DX: Z12.31 Encounter for screening mammogram for malignant neoplasm of breast (principal)
CPT/HCPCS: 77063; 77067

== ENCOUNTER → 2024-01-12 14:30 | Outpatient (BNV) | payer OTHER, SELFPAY | PROVIDERS: PCP Internal Medicine; Visit Provider Internal Medicine | DX: Z12.31 Encounter for screening mammogram for malignant neoplasm of breast (principal) | CPT/HCPCS: 77063; 77067 ==

== ENCOUNTER 2024-03-19 13:25 | Outpatient (AMB) | payer OTHER, SELFPAY ==
--- NOTE | 2024-03-19 13:05 | MHC.OFFVISWM ---
VS Expanded 03/19/24 13:10 Height 5 ft 1.5 in Weight 150 lb BMI 27.9 Intake Visit Reasons: TELEPHONE PO LSG 03/03/22 Allergies Iodinated Contrast Media [IV Contrast Dye] Allergy (Severe, Verified 08/30/23 10:57) Anaphylaxis shellfish derived Allergy (Severe, Verified 08/30/23 10:57) Anaphylaxis Medication List - Last Reconciled 03/19/24 by SANCHO Lozoya cetirizine 10 mg PO DAILY epinephrine IM DIRECTED fluticasone propionate 50 mcg/actuation 2 sprays intranasal DAILY inulin (Fiber Gummies) 2 grams PO DAILY ketotifen fumarate 0.025%(0.035%) (Allergy Eye (ketotifen)) 1 drp ophthalmic (eye) BID levothyroxine 100 mcg PO DAILY montelukast 10 mg PO BEDTIME oxybutynin chloride ER 10 mg PO DAILY vitamin A palmitate 10,000 units PO DAILY HPI Comments Details: This?is a?48?yo female who is s/p LSG 03/03/2022. Presents for 2 year post op visit. Weight at last visit on 08/30/2023 was 150.4 pounds, weight same today.? No complaints of nausea, emesis, abdominal pain or reflux. Occasional constipation, uses stool softener and laxatives. Occasional dizziness, related to sugar intake. Morning BS 60-80s. Present meal plan includes: 70g protein minimum wakes 5:30am- takes thyroid med on empty stomach leaves for work 6:30am 7am Isopure protein shake with 8oz fairlife milk 9am 1 egg 12pm protein, veg, optional carb (547 bread or bagel) 3pm yogurt or fruit or egg 6pm protein (often eggs), veg (cucumbers or carrots), carb optional sometimes does not finish all of her meal will also incorporate some fruits taking MVI Exercise routine includes: Treadmill every day plus upper body strength training Did the patient ever have any of these conditions and are they resolved or still being treated? GERD: never DALTON:? never DM:? was prediabetic- resolved HTN:? never Hyperlipidemia:? never Post op complications:? never PFSH Medical History (Updated 07/25/22 @ 13:36 by SANCHO Lozoya) Stress incontinence Cholelithiasis Arthritis Environmental and seasonal allergies Adjustment disorder, unspecified Hypothyroid Surgical History (Updated 08/30/23 @ 10:57 by Svetlana Koch CMA) Hx of appendectomy S/P laparoscopic sleeve gastrectomy History of root canal procedure delivery delivered Family History Mother Anxiety Developmental delay Father Diabetes Daughter No known health problems Daughter Premature baby Son Hypoglycemia Eye abnormalities Obstructive sleep apnea (adult) (pediatric) Developmental delay Social History Household Members: Spouse and Children Housing: House Are you a primary career guidance counselor to a significant other at home: No Do you presently have visiting nurse or other home services: No Alcohol intake: never Patient Tobacco Use Status: Never used Tobacco Current occupational status: employed Current occupation: [employer] Telehealth Telehealth Telehealth Platform: Telephone Location of provider rendering services: practice address Location of patient: address on file Patient Identification confirmed using: Name, : Yes Telehealth method: voice only Patient verbally consented to treatment: Yes Patient verbally consented to billing insurance company: Yes Patient informed of any privacy concerns related to visit: Yes Minutes spent on Phone/Video with Pt.: 15 Assessment & Plan Assessment & Plan (1) S/P laparoscopic sleeve gastrectomy: Comment: 03/08/22 Larry Terrazas MD Code(s): Z98.84 - Bariatric surgery status Category: Surgical (2) Overweight: Code(s): E66.3 - Overweight Category: Medical Plan Pt is happy at current weight; she was underfat at last body comp measurement. No changes to meal plan today. Introducing healthy carbs has helped stabilize her blood sugars in the morning more. Pt has lost almost 100 lbs since starting with us (248); reports she had been up to 280 at one point. Vit A not previously covered by pt's insurance, gave list of foods high in vit A and recommendations for OTC supplement dose. RTC 6mo. I spent a total of 30 minutes reviewing/updating records, examining the patient and counseling the patient on weight management as detailed above. Orders: Orders Insulin Today Z98.84 - Bariatric surgery status Lipid Panel Today Z98.84 - Bariatric surgery status IRON PROFILE Today Z98.84 - Bariatric surgery status Comprehensive Met. Panel Today Z98.84 - Bariatric surgery status Vitamin B12 and Folate Today Z98.84 - Bariatric surgery status C Reactive Protein Today Z98.84 - Bariatric surgery status Vitamin B1 Today Z98.84 - Bariatric surgery status Vitamin A Today Z98.84 - Bariatric surgery status TSH reflex Free T4 Today Z98.84 - Bariatric surgery status Ferritin Today Z98.84 - Bariatric surgery status Hemoglobin A1c Today Z98.84 - Bariatric surgery status Complete Blood Count Auto Diff Today Z98.84 - Bariatric surgery status Zinc Today Z98.84 - Bariatric surgery status Vitamin D 25-OH Total Today Z98.84 - Bariatric surgery status
[2024-03-19 13:10] VITALS: BMI 27.9
== END 2024-03-19 13:30 | disposition home or self-care (01) ==
LOC: HO.HBS 13:25
PROVIDERS: PCP Internal Medicine; Visit Provider Physician Assistant Surgical
DX: E66.3 Overweight (principal); Z68.27 Body mass index [BMI] 27.0-27.9, adult; Z90.3 Acquired absence of stomach [part of]; Z98.84 Bariatric surgery status
CPT/HCPCS: 99214; G2211

== ENCOUNTER → 2024-03-19 13:25 | Outpatient (BNVA) | payer OTHER, SELFPAY | PROVIDERS: PCP Internal Medicine; Visit Provider Physician Assistant Surgical | DX: Z98.84 Bariatric surgery status (principal) ==

== ENCOUNTER 2024-04-19 12:27 | Outpatient (REF) | payer OTHER, SELFPAY ==
[2024-04-19 12:53] LABS: MANUAL DIFF FLAG NO
[2024-04-19 13:12] LABS: Basophils Percent Auto 0.6 % (0-2); Eosinophils Absolute Auto 0.2 X10*3/uL (0.0-0.4); Eosinophils Percent Auto 2.9 % (0-4); Hematocrit 34.4 % (37.0-47.0); Hemoglobin 11.1 g/dl (12.0-16.0); Imm Gran Abs Auto 0.02 X10*3/uL (0.00-0.03); Imm Gran Pct Auto 0.3 % (0.0-0.4); Lymphocytes Absolute Auto 2.4 X10*3/uL (1.2-4.9); Lymphocytes Percent Auto 35.8 % (20-40); Mean Corpuscular HGB Conc 32.3 g/dl (31.0-35.0); Mean Corpuscular Volume 86.9 fL (80.0-98.0); Mean Platelet Volume 10.5 fL (9.4-12.3); Monocytes Absolute Auto 0.5 X10*3/uL (0.1-1.2); Monocytes Percent Auto 7.6 % (2-11); Neutrophils Absolute Auto 3.5 x10*3/uL (2.0-8.3); Neutrophils Percent Auto 52.8 % (45-73); Platelet Count 211 X10*3/uL (160-400); Red Blood Count 3.96 X10*6/uL (4.20-5.50); Red Cell Distribution Width 13.3 % (11.0-16.0); White Blood Count 6.6 X10*3/uL (4.8-10.8)
--- OUTSIDE RECORDS SUMMARY | 2024-04-19 13:19 | XMS_ITS | Clinical Summary ---
Author Organization [facility] ity Address [address] [place] [address] Care Team Providers Care Cable Reeler Name Role Phone Ida Lang MD Primary Care Provider Unavail able Social History Tobacco Use Types Packs/Day Years Used Date Smoking Tobacco: Never Assessed Sex and Gender Information Value Date Recorded Sex Assigned at Not on file Gender Identity Not on file Sexual Orientation Not on file Plan of Treatment Health Maintenance Due Date Last Done Comments DTaP,Tdap,and Td Vaccines (1 - Tdap) 1995 Hepatitis B Vaccines (1 of 3 - 19+ 3-dose series) 1995 Cervical Cancer Screening: P ap Smear 1997 Breast Cancer Screening 01/06/2020 01/05/2018 Colorectal Cancer Screening: Colonoscopy 02/09/2022 Depression Screening 02/09/2022 HIV Screening 02/09/2022 Hepatitis C Screening 02/09/2022 Social Influencers of Health Screening 02/09/2022 COVID-19 Vaccine (2023-2 5 season) 2023 Influenza Vaccine (#1) 2023 HIB Vaccines Aged Out No longer eligi ble based on patient's age to complete this topic HPV Vaccines Aged Out No longer eligi ble based on patient's age to complete this topic Hepatitis A Vaccines Aged Out No long er eligible based on patient's age to complete this topic IPV Vaccines Aged Out No longer eligi ble based on patient's age to complete this topic MMR Vaccines Aged Out No longer eligi ble based on patient's age to complete this topic Meningococcal ACWY Vaccine Aged Out N o longer eligible based on patient's age to complete this topic Pneumococcal Vaccine: Pediat rics (0 to 5 Years) and At-Risk Patients (6 to 64 Years) Aged Out No longer eligi ble based on patient's age to complete this topic RSV Immunization Patients Un partha 20 months Aged Out No longer eligible b ased on patient's age to complete this topic Varicella Vaccines Aged Out No longer eligible based on patient's age to complete this topic Procedures Procedure Name Priority Date/Time Associated Diagnosis Comments NALLELY SCREENING DIGITAL Routine 01/05/2018 3:56 PM EDT Encounter for screening mammogram for malignant neoplasm of breast from Last 3 Months or Most Recently Relevant to Health Maintenance Results * NALLELY SCREENING DIGITAL (01/05/2018 3:56 PM EDT) Anatomical Region Laterality Modality Mammography 01/05/2018 1:59 PM EDT Narrative 01/05/2018 3:56 PM EDT [facility] Diagnostic Imaging Department [address] [place] [address] Patient: ??CHANTELL TAVARES ?/Age/Sex: 1975 - 42 - F Unit#: ??[id number] ? Location/Status: ??SPDIMAM/REG CLI ? Mnemonic/Ordering Site: ??DIGSC/SPMAM Ordering Physician: ??IDA LANG MD Nallely Screening Digital - 01/05/18 - 1458 EXAM: Nallely Screening Digital EXAM DATE AND TIME: 01/05/2018 2:59 PM HISTORY: ??Screening. COMPARISON: ??08/18/16 TECHNIQUE: CC and MLO views of both breasts were obtained using full field digital mammography. Bilateral digital breast tomosynthesis was performed in the MLO projection. Computer aided detection with the iCAD SecondLook 7.2-H was employed. TISSUE DENSITY: b. There are scattered areas of fibroglandular density. FINDINGS: No suspicious masses, grouped microcalcifications, or areas of architectural distortion are seen. A few benign microcalcifications are present in the anteromedial left breast, unchanged. The skin and vascularity are unremarkable. IMPRESSION: Stable mammographic appearance of the breasts. ??No evidence of malignancy is seen. A negative mammogram in the presence of a clinically suspicious palpable abnormality does not preclude the possibility of malignancy or alter the indications for biopsy. BI-RADS: ??Category 2: Benign RECOMMENDATION(S): 1: Routine screening mammogram BILATERAL in 1 year. 58696, 34040 3342F, 7025F Dictating Physician: ??FLETCHER LUNA MD Electronically Signed by: ??FLETCHER LUNA MD Dic Date/Time: ??01/05/18 1555 Sign date/Time: ??01/05/18 155 Procedure Note Fletcher Luna MD - 03/01/2022 [facility] Diagnostic Imaging Department [address] [place] [address] Patient: CHANTELL TAVARESO.B./Age/Sex: 1975 - 42 - F Unit#: [id number] [facility]Ordering Site: [facility] Ordering Physician: IDA LANG MD [facility] Screening Digital - 01/05/18 - 1458 EXAM: [facility] Screening Digital EXAM DATE AND TIME: 01/05/2018 2:59 PM HISTORY: Screening. COMPARISON: 08/18/16 TECHNIQUE: CC and MLO views of both breasts were obtained using fullfield digital mammography. Bilateral digital breast tomosynthesis was performedin the MLO projection. Computer aided detection with the [employer] employed. TISSUE DENSITY: b. There are scattered areas of fibroglandular density. FINDINGS: No suspicious masses, grouped microcalcifications, or areas ofarchitectural distortion are seen. A few benign microcalcifications are present in the anteromedial left breast, unchanged. The skin and vascularity areunremarkable. IMPRESSION: Stable mammographic appearance of the breasts. No evidence of malignancyis seen. A negative mammogram in the presence of a clinically suspicious palpable abnormality does not preclude the possibility of malignancy or alter the indications for biopsy. BI-RADS: Category 2: Benign RECOMMENDATION(S): 1: Routine screening mammogram BILATERAL in 1 year. 36039, 65875 3342F, 7025F Dictating Physician: FLETCHER LUNA MD Electronically Signed by: FLETCHER LUNA MD Dic Date/Time: 01/05/18 1555 Sign date/Time: 01/05/18 1556 Ida Lang MD IMG BI PROCEDURES from Last 3 Months or Most Recently Relevant to Health Maintenance Care Teams Cable Reeler Relationship Specialty Start Date End Date Ida Lang MD PCP - General Internal Medicine 11/20/17
--- OUTSIDE RECORDS SUMMARY | 2024-04-19 13:19 | XMS_ITS | Clinical Summary ---
Author Organization [employer] Address [address] [place] [address] 7[address] [place] [address] Care Team Providers Care Instrument Assembly Supervisor Name Role Phone Mehran Calloway MD Primary Care Prov ider Allergies Active Allergy Reactions Criticality Noted Date Comments Iodine Hives Low 07/05/2019 Shellfish Allergy 07/19/2023 Medications cetirizine (ZyrTEC) 10 MG tablet Take 1 tablet by mouth 2 times daily. 2 Active EPINEPHrine (Epipen) 0.3 MG/0.3ML injection syringe USE DIRECTED, FOR ANAPHYLAIXS, CALL 911 AFTER USE 2 Active hydrocortisone 2.5 % ointment APPLY TO AFFECTED AREA TWICE A DAY NEEDED 2 Active montelukast (Singulair) 10 MG tablet Take 1 tablet by mouth at bedtime. 2 Active pantoprazole (ProtoNix) 40 MG EC tablet Take 1 tablet by mouth 1 (one) time each day. 2 Active Multiple Vitamin (multivitamin) tablet Take 1 tablet by mouth in the morning. Active levothyroxine (Synthroid, Levoxyl) 75 MCG tabletIndications:A cquired hypothyroidism TAKE 1 TABLET (75 MCG) BY MOUTH ONCE PER DAY. 90 tablet 1 4 04/21/19 25 Active Active Problems Problem Noted Date Diagnosed Date Overweight (BMI 25.0-29.9) 09/26/2023 Assessment & Plan (09/26/2023 9:51 PM EDT): Status post sleeve gastrectomy, followed by bariatric surgery Hospital discharge follow-up 07/21/2023 S/P laparoscopic appendectomy 07/21/2023 Assessment & Plan (07/21/2023 1:01 PM EDT): Patient admitted from 07/09-07/12 due to appendicitis, s/p lap appendectomy. Patient tolerating diet, no nausea/vomiting, no fever/chills. Wound healing well, continue progressing diet, avoid heavy lifting for next 6-8 weeks Screening for colon cancer 03/07/2023 Overview (03/07/2023): Patient had it done on 08/2015 was normal due in 10 years Assessment & Plan (03/07/2023 1:39 PM EST): Patient had it done on 08/2015 was normal due in 10 years Acquired hypothyroidism 05/30/2022 Assessment & Plan (11/27/2023 2:55 PM EDT): Controlled, continue current dose of levothyroxine, 75mcg, follow up in 4 months, call back if new symptoms arrive Assessment & Plan (09/26/2023 9:47 PM EDT): Clinically euthyroid, on levothyroxine she is losing weight therefore in the future dose adjustment will be required Assessment & Plan (09/25/2023 1:21 PM EDT): Will decrease dose to 75mcg, new labs will be ordered to be performed 1 weeks prior to visit on mid November. Assessment & Plan (07/24/2023 1:26 PM EDT): TSH low, will decrease levothyroxine to 88mcg, dose adjustment related to weight loss after gastric bypass. Will leave blood work to be performed in 2 months Assessment & Plan (05/02/2023 1:34 PM EST): Slightly below target, she is asymptomatic, has been losing weight which could be affecting the tsh results, since she is asymptomatic, will leave on current therapy and follow up in 3 months Assessment & Plan (03/07/2023 1:36 PM EST): Clinically euthyroid, told to get blood work done will follow up in 4-6 months Assessment & Plan (11/28/2022 10:18 PM EDT): Adequate tsh levels, she is clinically euthyroid, continue 100mcg, will follow up in 3 months Assessment & Plan (10/12/2022 3:09 PM EDT): Not at target, will decrease levothyroxine to 100mcg, follow up in 6 weeks and repeat tsh Assessment & Plan (09/08/2022 2:53 PM EDT): tsh 0.1 will decrease levothyroxine to 112,cg, repeat tsh in 6 weeks, will follow up on october 24 tele. Assessment & Plan (05/30/2022 4:30 PM EDT): On levothyroxine 125 mcg, she is clinically/chemically euthyroid, continue current treatment. Constipation 03/23/2022 Assessment & Plan (05/30/2022 4:31 PM EDT): On stool softeners, increase water ingestion and fiber in diet. Assessment & Plan (03/23/2022 3:27 PM EST): Will start on senna docusate for use prn. Resolved Problems Problem Noted Date Diagnosed Date Resolved Date Class 2 obesity due to exces s calories without serious comorbidity with body mass index (BMI) of 38.0 to 38.9 in adult 03/23/2022 Assessment & Plan (03/23/2022 3:29 PM EST): Recommended to speak with bariatric surgeon. Encounters Date Type Department Care Team Description 04/19/2024 Orders Only GENERIC EXTERNAL DATA DEPARTMENT Provider, Generic External Data from Last 3 Months Immunizations Name Administration Dates Next Due Thien SARS-CoV-2 Vaccination 06/18/2020 Tdap 11/26/2021 Social History Tobacco Use Types Packs/Day Years Used Date Smoking Tobacco: Never Passive Smoke Exposure: Never Smokeless Tobacco: Never Alcohol Use Standard Drinks/Week Comments Never 0 (1 standard drink = 0.6 oz pur e alcohol) Depression Answer Date Recorded Patient Health Questionnaire-9 Score 0 05/25/2023 Patient Health Questionnaire-9 Score 0 05/25/2023 Last PHQ-9: Questionnaire Data Not on file 0 05/25/2023 Housing Stability Answer Date Recorded What is your housing situation today? I have anastasiia nichols 12/26/[address] you li ve. Do you have problems with any of the following? None of the above 12/26/2022 Food Insecurity Answer Date Recorded Within the past 12 months, y ou worried that your food would run out before you got money to buy more: Never True 12/26/2022 Within the past 12 months,th e food you bought just didn't last and you didn't have enough money to get more: Never True Transportation Answer Date Recorded In the past 12 months, has l ack of transportation kept you from medical appts, meetings, work or from getting things needed for daily living? No 12/26/2022 Utilities Answer Date Recorded In the past 12 months, has t he electric, gas, oil or water company threatened to shut off services in your home? No 12/26/2022 Depression Answer Date Recorded Patient Health Questionnaire-2 Score 0 05/25/2023 Comments Unknown Sex and Gender Information Value Date Recorded Sex Assigned at Female 01/10/2022 10:36 AM EDT Legal Sex Female 10:36 AM EDT Gender Identity Female 01/10/2022 10:36 AM EDT Sexual Orientation Straight 01/10/2022 10 :36 AM EDT Last Filed Vital Signs Vital Sign Reading Time Taken Comments Blood Pressure 102/58 07/21/2023 8:46 AM EDT Pulse 66 07/21/2023 8:46 AM EDT Temperature 36.4 ??C (97.6 ??F) 07/21/2023 8:46 AM ED T Respiratory Rate 20 07/21/2023 8:46 AM EDT Oxygen Saturation 100% 07/21/2023 8:46 AM EDT Inhaled Oxygen Concentration - - Weight 63.5 kg (140 lb) 07/21/2023 8:46 AM EDT Height 154.9 cm (5' 1 ) 07/21/2023 8:46 AM EDT Body Mass Index 26.45 07/21/2023 8:46 AM EDT Plan of Treatment Upcoming Encounters Date Type Department Care Team ([facility] st Contact Info) Description 05/08/2024 10:15 AM EST Telemedicine [facility] MED & PEDS [address] [place] [address] Mehran Calloway MD [address] [place] [address] Health Maintenance Due Date Last Done Comments CT Colonography 1976 FIT DNA/Cologuard 1976 FIT 1975 FOBT 1975 Sigmoidoscopy 1976 Alcohol/Substance Use Screening 1988 Family Planning (PISQ) 1991 Depression Screening 05/24/2024 05/25/2023, 05/25/19 24 SDOH Screening 05/24/2024 05/25/2023 Cervical Cancer Screening 07/14/2024 HPV/Cotest 07/14/2024 07/15/2019 Pap Smear 07/14/2024 07/15/2019 Tobacco Screening 07/20/2024 07/21/2023 Colonoscopy 08/12/2025 Colorectal Cancer Screening 08/12/2025 Mammogram 01/11/2026 01/12/2024, 12/12, 12/28/2021, Additional history exists Zoster Vaccines (1 of 2) 2026 DTaP/Tdap/Td Vaccines (2 - Td or Tdap) 11/27/2031 11/26/2021 RSV Patients and Patients Aged 60 years or older (1 - 1-dose 75+ series) 2051 Hepatitis A Vaccines Aged Out 11/27/2009 No long er eligible based on patient's age to complete this topic Hepatitis B Vaccines Completed 11/27/2009, 06/29/2009, 05/29/2009 HIV Screening Completed 10/17/2019 Hepatitis C Screening Completed 10/17/2019 COVID-19 Vaccine Completed 01/03/2024, 07/2022, 11/21/2021, Additional history exists Influenza Vaccine Completed 01/03/2024, , 11/21/2021, Additional history exists HIB Vaccines Aged Out No longer eligi ble based on patient's age to complete this topic HPV Vaccines Aged Out No longer eligi ble based on patient's age to complete this topic IPV Vaccines Aged Out No longer eligi ble based on patient's age to complete this topic Meningococcal Vaccine Aged Out No ameena hari eligible based on patient's age to complete this topic Pneumococcal Vaccine: Pediatrics (0 to 5 Years) and At-Risk Patients (6 to 49) Years) Aged Out No longer eligible based on patient's age to complete this topic RSV under 20 months Aged Out No longe r eligible based on patient's age to complete this topic Rotavirus Vaccines Aged Out No longer eligible based on patient's age to complete this topic Procedures Procedure Name Priority Date/Time Associated Diagnosis Comments CBC WITH AUTO DIFFERENTIAL Routine 04/19/2024 12:50 PM EST BI MAMMOGRAM SCREENING TOMOSYNTHESIS BILATERAL Routine 01/12/2024 2:04 PM EDT ZZZ HISTORICAL HEPATITIS C AB W/REFL TO HCV RNA, QN, PCR Routine 10/17/2019 9:05 AM EDT HIV 1/2 ANTIGEN/ANTIBODY, FOURTH GENERATION W/RFL Routine 10/17/2019 9:05 AM EDT HM PAP/HPV Routine 07/15/2019 from Last 3 Months or Most Recently Relevant to Health Maintenance Results * (ABNORMAL) CBC auto differential (04/19/2024 12:50 PM EST) White Blood Count 6.6 4.8 - 10.8 X10*3/uL [facility] Red Blood Count 3.96(L) 4.20 - 5.50 X10*6/uL [facility] Hemoglobin 11.1(L) 12.0 - 16.0 g/dl [facility] Hematocrit 34.4(L) 37.0 - 47.0 % [facility] Mean Corpuscular Volume 86.9 80.0 - 98.0 fL [facility] Mean Corpuscular Hemoglobin 28.0 27.0 - 33.0 pg [facility] Mean Corpuscular HGB Conc 32.3 31.0 - 35.0 g/dl [facility] Red Cell Distribution Width 13.3 11.0 - 16.0 % [facility] Platelet Count 211 160 - 400 X10*3/uL [facility] Mean Platelet Volume 10.5 9.4 - 12.3 fL [facility] Neutrophils Percent Auto 52.8 45 - 73 % [facility] Imm Gran Pct Auto 0.3 0.0 - 0.4 % [facility] Lymphocytes Percent Auto 35.8 20 - 40 % [facility] Monocytes Percent Auto 7.6 2 - 11 % [facility] Eosinophils Percent Auto 2.9 0 - 4 % [facility] Basophils Percent Auto 0.6 0 - 2 % [facility] NRBC Pct Auto 0.0 0.0 - 0.2 /100WBC [facility] Neutrophils Absolute Auto 3.5 2.0 - 8.3 x10*3/uL [facility] Imm Gran Abs Auto 0.02 0.00 - 0.03 X10*3/uL [facility] Lymphocytes Absolute Auto 2.4 1.2 - 4.9 X10*3/uL [facility] Monocytes Absolute Auto 0.5 0.1 - 1.2 X10*3/uL [facility] Eosinophils Absolute Auto 0.2 0.0 - 0.4 X10*3/uL [facility] Basophils Absolute Auto 0.0 0.0 - 0.2 X10*3/uL [facility] NRBC Abs Auto 0.000 0.0 - 0.012 X10*3/uL [facility] 04/19/2024 12:5 0 PM EST 04/19/2024 12:50 PM EST us Generic External Data Provider LAB BLOOD ORDERAB LES Final Result [facility] [address] [place] [address] [place] [address] [phone] * BI Mammogram Screening Tomosynthesis Bilateral (01/12/2024 2:04 PM EDT) Anatomical Region Laterality Modality Breast Bilateral Mammography 01/12/2024 2:04 PM EDT Narrative 01/22/2024 7:43 PM EST ? [facility] ? [address] ?[place] [address] ? Mammography Report ? Signed ? Patient: Cubi,Chantell M ?MR#: [id number] ? : 1975 ?Acct:[id number] ? Age/Sex: 48 / F ?ADM Date: 01/12/24 ? Loc: HO.MAMMO ? Attending Dr: Mehran Garcia MD ? Ordering Physician: Mehran Calloway MD ?Res ?? ults: 1Negative ? Date of Service: 01/12/24 ?Follow Up: 1 Year From Orig ?? inal Mammogram ? Procedure(s): MM tomosynthesis screening BI ?? Accession Number(s): [id number] ? cc: Mehran Calloway MD ? EXAMINATION: ?? MM SCREENING DIGITAL BREAST TOMOSYNTHESIS, BILATERAL ? CLINICAL INFORMATION: ? Screening. Asymptomatic. ? COMPARISON: ?? Mammography: Comparison is made with available priors ? TECHNIQUE: ?? Digital breast mammography with tomosynthesis is performed in both the ?? craniocaudal and mediolateral oblique views along with computer-aided ?? detection (CAD). ? FINDINGS: ?? There are scattered areas of fibroglandular density (ACR BI-RADS breast ?? composition Category b). ? There are no significant masses, abnormal calcifications, or other ?? abnormalities. ? MM/MM tomosynthesis screening BI ?? IMPRESSION: ?? No mammographic evidence of malignancy. ? ASSESSMENT: ? BI-RADS BI-RADS 1 - Negative ? RECOMMENDATION: ?? Routine annual mammography screening. ? 1 year F/U ? This examination should not preclude the clinical evaluation of a ?? suspicious palpable abnormality. ? This patient's information was entered into a reminder system with a ?? target due date for their next mammogram. ? Electronically signed by: ??Pastora Ho DO ??01/22/2024 07:41 PM EST ? Dictated By: ?Pastora Ho DO ? Signed By: ?<Electronically signed by Pastora Ho, DO in OV> ? 11/11/24 1941 ? DD/ 1404 ? TD/TT: 01/12/24 1418 ? Product Advisor: ? Procedure Note Harsha, Image - 01/22/2024 [facility] [address] [place] [address] Mammography Report Signed Patient: Chantell Hairston MMR#: [id number] : 1975Acct:[id number] Age/Sex: 48 / FADM Date: 01/12/24 Loc: HO.MAMMO Attending Dr: Mehran Garcia MD Ordering Physician: Mehran Calloway ults: 1Negative Date of Service: 01/12/24Follow Up: 1 Year From Orig inal Mammogram Procedure(s): MM tomosynthesis screening BI Accession Number(s): [id number] cc: Mehran Calloway MD EXAMINATION: MM SCREENING DIGITAL BREAST TOMOSYNTHESIS, BILATERAL CLINICAL INFORMATION: Screening. Asymptomatic. COMPARISON: Mammography: Comparison is made with available priors TECHNIQUE: Digital breast mammography with tomosynthesis is performed in both the craniocaudal and mediolateral oblique views along with computer-aided detection (CAD). FINDINGS: There are scattered areas of fibroglandular density (ACR BI-RADS breast composition Category b). There are no significant masses, abnormal calcifications, or other abnormalities. MM/MM tomosynthesis screening BI IMPRESSION: No mammographic evidence of malignancy. ASSESSMENT: BI-RADS BI-RADS 1 - Negative RECOMMENDATION: Routine annual mammography screening. 1 year F/U This examination should not preclude the clinical evaluation of a suspicious palpable abnormality. This patient's information was entered into a reminder system with a target due date for their next mammogram. Electronically signed by: Pastora Ho DO 01/22/2024 07:41 PM EST Dictated By: Pastora Ho DO Signed By: <Electronically signed by Pastora Ho DO in OV> 01/22/24 1941 DD/ 1404 TD/TT: 01/12/24 1418 Product Advisor: Mehran Garcia MD IM BI PROCEDURES Edited Result - Final * HEPATITIS C AB W/REFL TO HCV RNA, QN, PCR (10/17/2019 9:05 AM EDT) HEPATITIS C ANTIBODY NON-REACT TAD NON-REACT TAD [facility] INDEX 0.01 <1.00 [facility] Comment: ?? HCV antibody was non-reactive. There is no laboratory ?? evidence of HCV infection. ?? In most cases, no further action is required. However, if recent HCV exposure is suspected, a test for HCV RNA (test code 06504) is suggested. ?? For additional information please refer to http://education.[employer]/faq/VVH13j1 (This link is being provided for informational/ educational purposes only.) ?? HEPATITIS C ANTIBODY NON-REACT TAD NON-REACT TAD [facility] INDEX 0.01 <1.00 [facility] Comment: ?? HCV antibody was non-reactive. There is no laboratory ?? evidence of HCV infection. ?? In most cases, no further action is required. However, if recent HCV exposure is suspected, a test for HCV RNA (test code 54591) is suggested. ?? For additional information please refer to http://thePlatform.[employer]/faq/YUX00b2 (This link is being provided for informational/ educational purposes only.) ?? 10/17/2019 9:05 AM EDT Mehran Garcia MD HISTORICAL/NON ORD ERABLE LABS Final Result Performing Organization Address [facility] Phone Number [facility] [address] [place] [address], [place] * HIV 1/2 ANTIGEN/ANTIBODY,FOURTH GENERATION W/RFL (10/17/2019 9:05 AM EDT) HIV-1/2 ANTIGEN AND ANTIBODIES, 4TH GENERATION W/ REFLEX NON-REACT TAD NON-REACT TAD [facility] Comment: HIV-1 antigen and HIV-1/HIV-2 antibodies were not detected. There is no laboratory evidence of HIV infection. ?? PLEASE NOTE: This information has been disclosed to you from records whose confidentiality may be protected by state law. ??If your state requires such protection, then the state law prohibits you from making any further disclosure of the information without the specific written consent of the person to whom it pertains, or as otherwise permitted by law. A general authorization for the release of medical or other information is NOT sufficient for this purpose. ? For additional information please refer to http://education.[employer]/faq/UYX810 (This link is being provided for informational/ educational purposes only.) ? The performance of this assay has not been clinically validated in patients less than 2 years old. ?? 10/17/2019 9:05 AM EDT Mehran Garcia MD LAB BLOOD ORDERABL ES Final Result Performing Organization Address [facility] Phone Number [facility] [address] [place] [address], [place] * Hm Pap Smear (07/15/2019) Pap Negative for intraephithelial lesion or malignancy Negative for intraephithelial lesion or malignancy, Other HPV Undetected Undetected, Indeterminate, Quantitative, Not Detected us Historical Provider HEALTH MAINTENANCE Final Result from Last 3 Months or Most Recently Relevant to Health Maintenance Insurance [employer] Care Teams Instrument Assembly Supervisor Relationship Specialty Start Date End Date Mehran Calloway MD [address] [place] [phone] PCP - General Internal Medicine 06/10/19
--- OUTSIDE RECORDS SUMMARY | 2024-04-19 13:19 | XMS_ITS | Encounter Summary ---
Author Organization [employer] Address [address] [place] [address] Care Team Providers Care Doughmaker Name Role Phone Mehran Calloway MD Primary Care Prov ider Reason for Visit * Reason Comments Med Refill Encounter Details Date Type Department Care Team ([facility] Contact Info) Description 11/04/2022 Refill [facility] MED & PEDS [address] [place], [place] [phone] Mehran Calloway MD [address] [place] [address] Acquired hypothyroidism Social History Tobacco Use Types Packs/Day Years Used Date Smoking Tobacco: Never Passive Smoke Exposure: Never Smokeless Tobacco: Never Alcohol Use Standard Drinks/Week Comments Never 0 (1 standard drink = 0.6 oz pur e alcohol) Depression Answer Date Recorded Patient Health Questionnaire-9 Score 0 05/30/2022 Depression Answer Date Recorded Patient Health Questionnaire-2 Score 0 05/30/2022 Comments Unknown Sex and Gender Information Value Date Recorded Sex Assigned at Female 01/10/2022 10:36 AM EDT Legal Sex Female 10:36 AM EDT Gender Identity Female 01/10/2022 10:36 AM EDT Sexual Orientation Straight 01/10/2022 10 :36 AM EDT documented as of this encounter Plan of Treatment Upcoming Encounters Date Type Department Care Team ([facility] Contact Info) Description 05/08/2024 10:15 AM EST Telemedicine [facility] MED & PEDS [address] [place], [place] [phone] Mehran Calloway MD [address] [place] [address] documented as of this encounter Visit Diagnoses Diagnosis Acquired hypothyroidism Unspecified hypothyroidism documented in this encounter Additional Health Concerns Assessment Noted Time PHQ-9 Depression Total Score: 0 05/31/19 23 3:12 PM EDT documented as of this encounter Care Teams Doughmaker Relationship Specialty Start Date End Date Mehran Calloway MD [address] [place] [id number] PCP - General Internal Medicine 06/10/19 documented as of this encounter
--- OUTSIDE RECORDS SUMMARY | 2024-04-19 13:19 | XMS_ITS | Encounter Summary ---
Author Organization [employer] Address [address] [place] [address] Care Team Providers Care Creative Manager Name Role Phone Mehran Calloway MD Primary Care Prov ider Reason for Visit * Reason Onset Date Comments Hospital Follow-up 07/14/2023 Encounter Details Date Type Department Care Team ([facility] Contact Info) Description 07/14/2023 Telephone [facility] MED & PEDS [address] [place], [place] [phone] Mehran Calloway MD [address] [place] [address] Hospital Follow-up Social History Tobacco Use Types Packs/Day Years [...] AM EDT documented as of this encounter Miscellaneous Notes * Telephone Encounter - Yahaira Douglas - 07/14/2023 4:06 PM EDT Tc from pt requesting a HDF appt. Hospital: [facility] Date of admission: 07/09/23 Discharge date: 07/13/23 Diagnosed: appendix removal Please contact pt at [phone] documented in this encounter Plan of Treatment Upcoming Encounters Date Type Department Care Team (Late st Contact Info) Description 05/08/2024 10:15 AM EST Telemedicine [facility] MED & PEDS [address] [place] [address] Mehran Calloway MD [address] [place] [address] documented as of this encounter Visit Diagnoses Not on filedocumented in this encounter Additional Health Concerns Assessment Noted Time PHQ-9 Depression Total Score: 0 05/25/19 24 3:03 PM EDT documented as of this encounter Care Teams Creative Manager Relationship Specialty Start Date End Date Mehran Calloway MD [address] [place] [address] PCP - General Internal Medicine 06/10/19 documented as of this encounter
--- OUTSIDE RECORDS SUMMARY | 2024-04-19 13:19 | XMS_ITS | Encounter Summary ---
Author Organization [employer] Address [address] [facility] 7 [place] [address] Care Team Providers Care Farm Operations Manager Name Role Phone Mehran Calloway MD Primary Care Prov ider Encounter Details Date Type Department Care Team ([facility] st Contact Info) Description 09/18/2023 Orders Only [facility] MED & PEDS [address] [place], [place] [phone] Mehran Calloway MD [address] [place] [address] Social History Tobacco Use Types Packs/Day Years [...] Info) Description 05/08/2024 10:15 AM EST Telemedicine [facility] MED & PEDS [address] [place] [address] Mehran Callowya MD [address] [place] [address] documented as of this encounter Visit Diagnoses Not on filedocumented in this encounter Additional Health Concerns Assessment Noted Time PHQ-9 Depression Total Score: 0 05/25/19 24 3:03 PM EDT documented as of this encounter Care Teams Farm Operations Manager Relationship Specialty Start Date End Date Mehran Calloway MD [address] [place] [address] PCP - General Internal Medicine 06/10/19 documented as of this encounter
--- OUTSIDE RECORDS SUMMARY | 2024-04-19 13:19 | XMS_ITS | Encounter Summary ---
Author Organization [employer] Address [address] [place] [phone] Care Team Providers Care Title One Reading Teacher Name Role Phone Mehran Calloway MD Primary Care Prov ider Reason for Visit * Reason Comments Med Refill Encounter Details Date Type Department Care Team ([facility] Contact Info) Description 09/30/2022 Refill [facility] MED & PEDS [address] [place], [place] [phone] Mehran Calloway MD [address] [place] [address] Acquired hypothyroidism Social History Tobacco Use Types [...] Upcoming Encounters Date Type Department Care Team ([facility] Contact Info) Description 05/08/2024 10:15 AM EST Telemedicine [facility] MED & PEDS [address] [place], [place] [phone] Mehran Calloway MD [address] [place] [address] documented as of this encounter Visit Diagnoses Diagnosis Acquired hypothyroidism Unspecified hypothyroidism documented in this encounter Additional Health Concerns Assessment Noted Time PHQ-9 Depression Total Score: 0 05/31/19 23 3:12 PM EDT documented as of this encounter Care Teams Title One Reading Teacher Relationship Specialty Start Date End Date Mehran Calloway MD [address] [place] [phone] PCP - General Internal Medicine 06/10/19 documented as of this encounter
[2024-04-19 13:33] LABS: Estimated Average Glucose 94 mg/dL; Hemoglobin A1C 86.3381 umol/L; Hemoglobin A1c % 4.9 % (<6.0); Total Hemoglobin (HGBA1C) 2911.4822 umol/L
[2024-04-19 14:20] LABS: Alanine Aminotransferase 14 U/L (0-31); Albumin Level 3.7 g/dL (3.5-5.0); Alkaline Phosphatase 45 U/L (39-117); Anion Gap 11 (12-20); Aspartate Amino Transferase 22 U/L (5-31); Blood Urea Nitrogen 11 mg/dL (9-16); C Reactive Protein < 0.10 mg/dL (< or = 0.50); Calcium 8.5 mg/dL (8.4-10.2); Carbon Dioxide 26 mmol/L (22-29); Chloride 108 mmol/L (96-108); Cholesterol 167 mg/dL (<200); Estimated Glomerular Filt Rate > 60; Glucose Random 78 mg/dL (60-115); HDL Cholesterol 58 mg/dL (>40); Iron 76 mcg/dL (30-160); LDL Cholesterol Calculated 90 mg/dL (<100); Percent Iron Saturation 29 % (15-50); Potassium 3.9 mmol/L (3.3-5.1); Sodium 141 mmol/L (135-145); Total Iron Binding Capacity 266 mcg/dL (228-428); Total Protein 7.1 g/dL (6.5-8.0); Triglycerides 96 mg/dL (<150); Unsaturated Iron Binding 190 ug/dL
[2024-04-19 14:24] LABS: Ferritin 25 ng/mL (10-250); TSH reflex Free T4 0.98 uIU/mL (0.32-4.0); Vitamin D 25-OH Total 45.8 ng/mL (>30)
[2024-04-19 14:30] LABS: Bilirubin Total 0.2 mg/dL (0.0-1.0)
[2024-04-19 14:36] LABS: Folate 14.4 ng/mL (> or = 4.0); Vitamin B12 309 pg/mL (200-900)
[2024-04-19 14:45] LABS: Insulin 5 uU/mL (2-29)
[2024-04-23 04:29] LABS: Zinc 59 mcg/dL (60-130)
[2024-04-23 19:28] LABS: Vitamin A 34 mcg/dL (38-98)
[2024-04-28 13:03] LABS: Vitamin B1 10 nmol/L (8-30)
== END 2024-04-19 12:28 | disposition home or self-care (01) ==
LOC: HO.LAB 12:27
PROVIDERS: Physician Assistant Surgical; PCP Internal Medicine; Visit Provider Internal Medicine
DX: Z98.84 Bariatric surgery status (principal)
CPT/HCPCS: 36415; 80053; 80061; 82306; 82607; 82728; 82746; 83036; 83525; 83540; 84425; 84443; 84590; 84630; 85025; 86140

== ENCOUNTER 2024-05-02 10:16 | Outpatient (AMB) | payer OTHER, SELFPAY ==
--- NOTE | 2024-05-02 10:06 | MHC.OFFVISWM ---
VS Expanded 05/02/24 10:08 Height 5 ft 1.5 in Weight 160 lb BMI 29.7 Intake Visit Reasons: TELEPHONE PO LSG 03/03/22 Allergies Iodinated Contrast Media [IV Contrast Dye] Allergy (Severe, Verified 08/30/23 10:57) Anaphylaxis shellfish derived Allergy (Severe, Verified 08/30/23 10:57) Anaphylaxis Medication List - Last Reconciled 05/02/24 by SANCHO Lozoya calcium citrate-vitamin D3 315 mg-6.25 mcg (250 unit) 1 tab PO BID cetirizine 10 mg PO DAILY epinephrine IM DIRECTED fluticasone propionate 50 mcg/actuation 2 sprays intranasal DAILY inulin (Fiber Gummies) 2 grams PO DAILY ketotifen fumarate 0.025%(0.035%) (Allergy Eye (ketotifen)) 1 drp ophthalmic (eye) BID levothyroxine 100 mcg PO DAILY montelukast 10 mg PO BEDTIME phentermine 30 mg PO DAILY vitamin A palmitate 10,000 units PO DAILY HPI Comments Details: This?is a?48?yo female who is s/p LSG 03/03/2022. Weight at last visit was 150lbs 6w ago, thinks she gained 10lbs since then. No complaints of nausea, emesis, abdominal pain or reflux. Occasional constipation, uses stool softener and laxatives. Pt reports hunger has really ramped up over the last few weeks. Was prediabetic prior to surgery, never on meds. Present meal plan includes: 70g protein minimum wakes 5:30am- takes thyroid med on empty stomach leaves for work 6:30am 7am Isopure protein shake with 8oz fairlife milk 9am 1 egg 12pm protein, veg, optional carb (547 bread or bagel) 3pm yogurt or fruit or egg 6pm protein (often eggs), veg (cucumbers or carrots), carb optional sometimes does not finish all of her meal will also incorporate some fruits taking MVI Exercise routine includes: Treadmill every day plus upper body strength training [facility] Medical History (Updated 07/25/22 @ 13:36 by SANCHO Lozoya) Stress incontinence Cholelithiasis Arthritis Environmental and seasonal allergies Adjustment disorder, unspecified Hypothyroid Surgical History (Updated 08/30/23 @ 10:57 by Svetlana Koch CMA) Hx of appendectomy S/P laparoscopic sleeve gastrectomy History of root canal procedure delivery delivered Family History Mother Anxiety Developmental delay Father Diabetes Daughter No known health problems Daughter Premature baby Son Hypoglycemia Eye abnormalities Obstructive sleep apnea (adult) (pediatric) Developmental delay Social History Household Members: Spouse and Children Housing: House Are you a primary director of career services to a significant other at home: No Do you presently have visiting nurse or other home services: No Alcohol intake: never Patient Tobacco Use Status: Never used Tobacco Current occupational status: employed Current occupation: [employer] Telehealth Telehealth Telehealth Platform: Telephone Location of provider rendering services: other Location of patient: address on file Patient Identification confirmed using: Name, : Yes Telehealth method: voice only Patient verbally consented to treatment: Yes Patient verbally consented to billing insurance company: Yes Patient informed of any privacy concerns related to visit: Yes Minutes spent on Phone/Video with Pt.: 17 Assessment & Plan Assessment & Plan (1) Overweight: Code(s): E66.3 - Overweight Category: Medical (2) S/P laparoscopic sleeve gastrectomy: Comment: 03/08/22 Larry Terrazas MD Code(s): Z98.84 - Bariatric surgery status Category: Surgical Plan Pt feels hunger is out of control despite getting adequate protein and trying to eat well balanced meals. She has downloaded [employer] saul and will create a plan. Would prefer phentermine for appetite suppressant for her rather than GLP1 due to history of possible low blood sugars and BMI under 30. Pt will check BP daily, will not dose if BP >140/90 and will send me measurements. Pt aware that we will wean phentermine once BMI 27. Encouraged her to reach out to me with any questions between visits. RTC 1 month. I spent a total of 30 minutes reviewing/updating records, examining the patient and counseling the patient on weight management as detailed above. Medications: New phentermine must administer 2 hours after breakfast 30 mg PO DAILY 30 caps 0RF
[2024-05-02 10:08] VITALS: BMI 29.7
--- OUTSIDE RECORDS SUMMARY | 2024-05-02 11:22 | XMS_ITS | Clinical Summary ---
Author Organization [facility] ity Address [address] [place] [address] Care Team Providers Care Drug Purchaser Name Role Phone Ida Lang MD Primary Care Provider Unavail able Social History Tobacco Use Types Packs/Day Years Used Date Smoking Tobacco: Never Assessed Comments Unknown Sex and Gender Information Value Date Recorded Sex Assigned at Not on file Legal Sex Female 2:36 PM EST Gender Identity Not on file Sexual Orientation [...] Influ[employer] of Health Screening 02/09/2022 COVID-19 Vaccine ( - 2023-2 5 season) 2023 Influenza Vaccine (#1) 2023 [...] patient's age to complete this topic Meningococcal B Vacine Aged Out No lo nger eligible based on patient's age to complete [...] Procedure Name Priority Date/Time Associated Diagnosis Comments [facility] SCREENING DIGITAL Routine 01/05/2018 3:56 PM EDT Encounter for screening mammogram for malignant neoplasm of breast from Last 3 Months or Most Recently Relevant to Health Maintenance Results * [facility] SCREENING DIGITAL (01/05/2018 3:56 PM EDT) Anatomical Region Laterality Modality Mammography 01/05/2018 1:59 PM EDT Narrative 01/05/2018 3:56 PM EDT [facility] Diagnostic Imaging Department [address] [place] [address] Patient: ??CHANTELL TAVARES ?/Age/Sex: 1975 - 42 - F Unit#: ??[id number] ? Location/Status: ??SPDIMAM/REG CLI ? Mnemonic/Ordering Site: ??DIGSC/SPMAM Ordering Physician: ??IDA LANG MD [facility] Screening Digital - 01/05/18 - 1458 EXAM: [facility] Screening Digital EXAM DATE AND TIME: 01/05/2018 2:59 PM HISTORY: ??Screening. COMPARISON: ??08/18/16 TECHNIQUE: CC and MLO views of both breasts were obtained using full field digital mammography. Bilateral digital breast tomosynthesis was performed in the MLO projection. Computer aided detection with the [employer] was employed. TISSUE DENSITY: b. There are [...] Routine screening mammogram BILATERAL in 1 year. 20702, 25471 3342F, 7025F Dictating Physician: ??FLETCHER LUNA MD Electronically Signed by: ??FLETCHER LUNA MD Dic Date/Time: ??01/05/18 1555 Sign date/Time: ??01/05/18 1556 Procedure Note Fletcher Luna MD - 03/01/2022 [facility] Diagnostic Imaging Department [address] [place] [address] Patient: CHANTELL TAVARES /Age/Sex: 1975 - 42 - F Unit#: [id number] Location/Status: [facility] Mnemonic/Ordering Site: [facility] Ordering Physician: IDA LANG MD [facility] Screening Digital - 01/05/18 - 1458 EXAM: [facility] Screening Digital EXAM DATE AND TIME: 01/05/2018 2:59 PM HISTORY: Screening. COMPARISON: 08/18/16 TECHNIQUE: CC and MLO views of both breasts were obtained using fullfield digital mammography. Bilateral digital breast tomosynthesis was performedin the MLO projection. Computer aided detection with the [employer] employed. TISSUE DENSITY: b. There are scattered [...] Routine screening mammogram BILATERAL in 1 year. 24901, 42613 3342F, 7025F Dictating Physician: FLETCHER LUNA MD Electronically Signed by: FLETCHER LUNA MD Dic Date/Time: 01/05/18 1555 Sign date/Time: 01/05/181555 Ida Lang MD IMG BI PROCEDURES Final Result from Last 3 Months or Most Recently Relevant to Health Maintenance Care Teams Drug Purchaser Relationship Specialty Start Date End Date Ida Lang MD PCP - General Internal Medicine 11/20/17
== END 2024-05-02 10:32 | disposition home or self-care (01) ==
LOC: HO.HBS 10:16
PROVIDERS: PCP Internal Medicine; Visit Provider Physician Assistant Surgical
DX: E66.3 Overweight (principal); Z68.29 Body mass index [BMI] 29.0-29.9, adult; Z90.3 Acquired absence of stomach [part of]; Z98.84 Bariatric surgery status
CPT/HCPCS: 99214

== ENCOUNTER → 2024-05-02 10:16 | Outpatient (BNVA) | payer OTHER, SELFPAY | PROVIDERS: PCP Internal Medicine; Visit Provider Physician Assistant Surgical ==

== ENCOUNTER 2024-06-10 10:57 | Outpatient (AMB) | payer OTHER, SELFPAY ==
--- NOTE | 2024-06-10 10:05 | MHC.OFFVISWM ---
VS Expanded 06/10/24 10:07 Height 5 ft 1.5 in Weight 160 lb BMI 29.7 Intake Visit Reasons: TELEPHONE PO LSG 03/03/22 Allergies Iodinated Contrast Media [IV Contrast Dye] Allergy (Severe, Verified 08/30/23 10:57) Anaphylaxis shellfish derived Allergy (Severe, Verified 08/30/23 10:57) Anaphylaxis Medication List - Last Reconciled 06/10/24 by SANCHO Lozoya calcium citrate-vitamin D3 315 mg-6.25 mcg (250 unit) 1 tab PO BID cetirizine 10 mg PO DAILY epinephrine IM DIRECTED fluticasone propionate 50 mcg/actuation 2 sprays intranasal DAILY inulin (Fiber Gummies) 2 grams PO DAILY ketotifen fumarate 0.025%(0.035%) (Allergy Eye (ketotifen)) 1 drp ophthalmic (eye) BID levothyroxine 100 mcg PO DAILY montelukast 10 mg PO BEDTIME phentermine 30 mg PO DAILY vitamin A palmitate 10,000 units PO DAILY zinc gluconate 30 mg PO DAILY HPI Comments Details: This?is a?49?yo female who is s/p LSG 03/03/2022. Weight stable since last OV 1 month ago. No complaints of nausea, emesis, abdominal pain or reflux, or constipation. Pt started phentermine after last visit. Has been sending BP measurements and all have been < 140/90. Has tried taking in afternoon rather than AM due to hunger increasing at night, and doing well with this. Feels well at 160lbs. Present meal plan includes: 70g protein minimum wakes 5:30am- takes thyroid med on empty stomach leaves for work 6:30am 7am Isopure protein shake with 8oz fairlife milk 9am 1 egg 12pm protein, veg, optional carb (547 bread or bagel) 3pm yogurt or fruit or egg 6pm protein (often eggs), veg (cucumbers or carrots), carb optional sometimes does not finish all of her meal will also incorporate some fruits taking MVI Exercise routine includes: Treadmill every day plus upper body strength training [facility] Medical History (Updated 07/25/22 @ 13:36 by SANCHO Lozoya) Stress incontinence Cholelithiasis Arthritis Environmental and seasonal allergies Adjustment disorder, unspecified Hypothyroid Surgical History (Updated 08/30/23 @ 10:57 by Svetlana Koch CMA) Hx of appendectomy S/P laparoscopic sleeve gastrectomy History of root canal procedure delivery delivered Family History Mother Anxiety Developmental delay Father Diabetes Daughter No known health problems Daughter Premature baby Son Hypoglycemia Eye abnormalities Obstructive sleep apnea (adult) (pediatric) Developmental delay Social History Household Members: Spouse and Children Housing: House Are you a primary healthcare educator to a significant other at home: No Do you presently have visiting nurse or other home services: No Alcohol intake: never Patient Tobacco Use Status: Never used Tobacco Current occupational status: employed Current occupation: [employer] Telehealth Telehealth Telehealth Platform: Telephone Location of provider rendering services: other Location of patient: address on file Patient Identification confirmed using: Name, : Yes Telehealth method: voice only Patient verbally consented to treatment: Yes Patient verbally consented to billing insurance company: Yes Patient informed of any privacy concerns related to visit: Yes Minutes spent on Phone/Video with Pt.: 16 Assessment & Plan Assessment & Plan (1) Overweight: Code(s): E66.3 - Overweight Category: Medical (2) S/P laparoscopic sleeve gastrectomy: Comment: 03/08/22 Larry Terrazas MD Code(s): Z98.84 - Bariatric surgery status Category: Medical Plan Pt doing well on phentermine, no side effects, BP well controlled. Her weight is stable but she is happy she is no longer experiencing severe sugar cravings. Will continue 2 more months and then reassess. Pt will continue to check in frequently with BP readings. RTC 2 months.
[2024-06-10 10:07] VITALS: BMI 29.7
--- OUTSIDE RECORDS SUMMARY | 2024-06-10 12:26 | XMS_ITS | Encounter Summary ---
Author Organization [employer] Address [address] [place] [address] Care Team Providers Care Tire Fabric Impregnating Range Tender Name Role Phone Mehran Calloway MD Primary Care Prov ider Reason for Visit * Reason Onset Date Comments Hospital Follow-up 07/14/2023 Encounter Details Date Type Department Care Team ([facility] Contact Info) Description 07/14/2023 Telephone [facility] MED & PEDS [address] [place], [place] [phone] Mehran Calloway MD [address] [place] [address] Hospital Follow-up Social History Tobacco Use Types [...] from pt requesting a HDF appt. Hospital: [facility] Date of admission: 07/09/23 Discharge date: 07/13/23 Diagnosed: appendix removal Please contact pt at [phone] documented in this encounter Plan of Treatment Not on file documented as of this encounter Visit Diagnoses Not on filedocumented in this encounter Additional Health Concerns Assessment Noted Time PHQ-9 Depression Total Score: 0 05/25/19 24 3:03 PM EDT documented as of this encounter Care Teams Tire Fabric Impregnating Range Tender Relationship Specialty Start Date End Date Mehran Calloway MD [address] [place] [id number] PCP - General Internal Medicine 06/10/19 documented as of this encounter
--- OUTSIDE RECORDS SUMMARY | 2024-06-10 12:26 | XMS_ITS | Encounter Summary ---
Author Organization [employer] Address [address] [facility] [address] [place] [address] Care Team Providers Care Steam Tank Operator Name Role Phone Mehran Calloway MD Primary Care Prov ider Encounter Details Date Type Department Care Team ([facility] st Contact Info) Description 09/18/[address] [facility] MED [facility] PEDS [address] [place], [place] [phone] Mehran Calloway MD [address] [place] [address] Social History Tobacco Use Types Packs/Day Years [...] as of this encounter Plan of Treatment Not on file documented as of this encounter Visit Diagnoses Not on filedocumented in this encounter Additional Health Concerns Assessment Noted Time PHQ-9 Depression Total Score: 0 05/25/19 24 3:03 PM EDT documented as of this encounter Care Teams Steam Tank Operator Relationship Specialty Start Date End Date ChaoMehran Mejía MD [address] [place] [id number] PCP - General Internal Medicine 06/10/19 documented as of this encounter
--- OUTSIDE RECORDS SUMMARY | 2024-06-10 12:26 | XMS_ITS | Clinical Summary ---
Author Organization [employer] Address [address] [place] [address] [address] [place] [address] Care Team Providers Care Industrial H[employer] Sales Assistant Name Role Phone Mehran Calloway MD Primary [...] (Synthroid, Levoxyl) 75 MCG tabletIndications:A cquired hypothyroidism Take 1 tablet (75 mcg) by mouth Once per day. 90 tablet 1 5 11/05/19 25 Active Active Problems Problem Noted Date [...] years Acquired hypothyroidism 05/30/2022 Assessment & Plan (05/08/2024 2:09 PM EST): Chemically and clinically euthyroid, continue current levothyroxine dose Assessment & Plan (11/27/2023 2:55 PM EDT): [...] Encounters Date Type Department Care Team Description 05/08/2024 10:15 AM EST Telemedicine [facility] [address] [place] [address] Mehran Calloway MD Acquired hypothyroidism 05/08/2024 Travel 05/07/2024 Telephone [facility] [address] [facility] [address] Mehran Calloway MD chart prep 04/19/2024 Orders Only GENERIC EXTERNAL DATA DEPARTMENT [...] 07/21/2023 8:46 AM EDT Plan of Treatment Health Maintenance Due Date [...] Procedure Name Priority Date/Time Associated Diagnosis Comments VITAMIN B1 Routine 04/19/2024 12:50 PM EST VITAMIN A Routine 04/19/2024 12:50 PM EST ZINC Routine 04/19/2024 12:50 PM EST INSULIN Routine 04/19/2024 12:50 PM EST VITAMIN B12/FOLATE, SERUM PANEL Routine 04/19/2024 12:50 PM EST TSH W/REFLEX TO FT4 Routine 04/19/2024 1 2:50 PM EST VITAMIN D,25-OH,TOTAL,IA Routine 04/19/2024 12:50 PM EST FERRITIN Routine 04/19/2024 12:50 PM EST LIPID PANEL, STANDARD Routine 04/19/2024 12:50 PM EST C-REACTIVE PROTEIN Routine 04/19/2024 12 :50 PM EST IRON AND TOTAL IRON BINDING CAPACITY Routine 04/19/2024 12:50 PM EST COMPREHENSIVE METABOLIC PANEL Routine 04/19/2024 12:50 PM EST HEMOGLOBIN A1C Routine 04/19/2024 12:50 PM EST CBC WITH AUTO DIFFERENTIAL Routine 04/19/2024 12:50 PM EST BI MAMMOGRAM SCREENING TOMOSYNTHESIS BILATERAL Routine 01/12/2024 2:04 PM EDT ZZZ HISTORICAL HEPATITIS C AB W/REFL TO HCV RNA, QN, PCR Routine 10/17/2019 9:05 AM EDT HIV 1/2 ANTIGEN/ANTIBODY, FOURTH GENERATION W/RFL Routine 10/17/2019 9:05 AM EDT HM PAP/HPV Routine 07/15/2019 from Last 3 Months or Most Recently Relevant to Health Maintenance Results * Vitamin D, 25-Hydroxy, Total, Immunoassay (04/19/2024 12:50 PM EST) Pathologist [facility] Vitamin D 25-OH Total 45.8 >30 ng/mL [facility] Comment:Health Based Referen ce Values*< 20 ng/mL Mxlvzqcla61-64 ng/mL Insufficient> 30 ng/mL Sufficient*Audelia GARCIA. N Engl J Med. 2007;357:266-280Care must be taken in interpreting Vitamin D results fromdifferent laboratories and methodologies. Published datademonstrated that results from patients undergoinghemodialysis may show a negative bias when tested withvarious automated 25-OH vitamin D assays when compared toLC-MS/MS.When testing samples from patients whose predominant form ofVitamin D is Vitamin D2, such as patients receiving VitaminD2 supplementation, results that are subtherapeutic shouldbe confirmed with another method such as LC-MS/MS. 04/19/2024 12:5 0 PM EST 04/19/2024 12:50 PM EST us Generic External Data Provider LAB BLOOD ORDERAB LES Final Result Performing Organization Address [facility] Co de Phone Number [facility] [address] [place] [phone] * Vitamin B12 (Cobalamin) and Folate Panel, Serum (04/19/2024 12:50 PM EST) Vitamin B12 309 200 - 900 pg/mL [facility] Comment:NORMAL 200-900 PG/ML INDETERMINATE 160-199 PG/ML DEFICIENT < 160 PG/ML Folate 14.4 > or = 4.0 ng/mL [facility] Comment:Reference Values:> o r = 4.0 ng/mL< 4.0 ng/mL suggests folate deficiency Methotrexate, aminopterin and folinic acid(leucovorin) are chemotherapeutic agents whose molecularstructures are similar to folate; therefore, the Architectfolate assay cannot be used for patients using these drugs. 04/19/2024 12:5 0 PM EST 04/19/2024 12:50 PM EST us Generic External Data Provider LAB BLOOD ORDERAB LES Final Result Performing Organization Address [facility] Co de Phone Number [facility] [address] [place] [phone] * TSH with Reflex to Free T4 (04/19/2024 12:50 PM EST) TSH reflex Free T4 0.98 0.32 - 4.0 uIU/mL [facility] 04/19/2024 12:5 0 PM EST 04/19/2024 12:50 PM EST us Generic External Data Provider LAB BLOOD ORDERAB LES Final Result Performing Organization Address [facility] Co de Phone Number [facility] [address] [place] [phone] * (ABNORMAL) CBC auto differential (04/19/2024 12:50 PM EST) White Blood Count 6.6 4.8 - 10.8 X10*3/uL [facility] Red Blood Count 3.96(L) 4.20 - 5.50 X10*6/uL [facility] Hemoglobin 11.1(L) 12.0 - 16.0 g/dl [facility] Hematocrit 34.4(L) 37.0 - 47.0 % [facility] Mean Corpuscular Volume 86.9 80.0 - 98.0 fL [facility] Mean Corpuscular Hemoglobin 28.0 27.0 - 33.0 pg [facility] Mean Corpuscular HGB Conc 32.3 31.0 - 35.0 g/dl [facility] Red Cell Distribution Width 13.3 11.0 - 16.0 % [facility] Platelet Count 211 160 - 400 X10*3/uL [facility] Mean Platelet Volume 10.5 9.4 - 12.3 fL [facility] Neutrophils Percent Auto 52.8 45 - 73 % [facility] Imm Gran Pct Auto 0.3 0.0 - 0.4 % [facility] Lymphocytes Percent Auto 35.8 20 - 40 % [facility] Monocytes Percent Auto 7.6 2 - 11 % [facility] Eosinophils Percent Auto 2.9 0 - 4 % [facility] Basophils Percent Auto 0.6 0 - 2 % [facility] NRBC Pct Auto 0.0 0.0 - 0.2 /100WBC [facility] Neutrophils Absolute Auto 3.5 2.0 - 8.3 x10*3/uL [facility] Imm Gran Abs Auto 0.02 0.00 - 0.03 X10*3/uL [facility] Lymphocytes Absolute Auto 2.4 1.2 - 4.9 X10*3/uL [facility] Monocytes Absolute Auto 0.5 0.1 - 1.2 X10*3/uL [facility] Eosinophils Absolute Auto 0.2 0.0 - 0.4 X10*3/uL [facility] Basophils Absolute Auto 0.0 0.0 - 0.2 X10*3/uL [facility] NRBC Abs Auto 0.000 0.0 - 0.012 X10*3/uL [facility] 04/19/2024 12:5 0 PM EST 04/19/2024 12:50 PM EST us Generic External Data Provider LAB BLOOD ORDERAB LES Final Result Performing Organization Address [facility] Phone Number [facility] [address] [place] [phone] * Iron And Total Iron Binding Capacity (04/19/2024 12:50 PM EST) Iron 76 30 - 160 mcg/dL [facility] Total Iron Binding Capacity 266 228 - 428 mcg/dL [facility] Percent Iron Saturation 29 15 - 50 % [facility] Unsaturated Iron Binding 190 ug/dL [facility] 04/19/2024 12:5 0 PM EST 04/19/2024 12:50 PM EST Generic External Data Provider LAB BLOOD ORDERAB LES Final Result Performing Organization Address [facility] [address] [place] [phone] * Insulin (04/19/2024 12:50 PM EST) Pathologist [facility] Insulin 5 2 - 29 uU/mL [facility] Comment:This test was perfor med using the [employer] chemiluminescentmethod. Values obtained from different assay methods cannot beused interchangeably. This insulin assay shows a possiblecross-reactivity with antibodies generated against insulin(immunoreactive insulin and some patients treated withbovine or porcine insulin). Insulin levels may be measuredlower in patients with insulin autoimmune syndrome orfamilial high pro-insulinemia. 04/19/2024 12:5 0 PM EST 04/19/2024 12:50 PM EST Generic External Data Provider LAB BLOOD ORDERAB LES Final Result Performing Organization Address [facility] Co de Phone Number [facility] [address] [place] [phone] * (ABNORMAL) Zinc (04/19/2024 12:50 PM EST) Zinc 59(A) 60 - 130 mcg/dL [facility] Comment:This test was develo ped and its analytical performancecharacteristics have been determined by [employer] [place], [place]. It hasnot been cleared or approved by the .S. Food and DrugAdministration. This assay has been validated pursuantto the CLIA regulations and is used for clinicalpurposes.THIS TEST WAS PERFORMED AT:[employer] [id number] [place] [address]PLFDOEXLISET BORGES MD,PHD 04/19/2024 12:5 0 PM EST 04/19/2024 12:50 PM EST Generic External Data Provider LAB BLOOD ORDERAB LES Final Result Performing Organization Address [facility] de Phone Number [facility] [address] [place] [phone] * (ABNORMAL) Vitamin A (04/19/2024 12:50 PM EST) Vitamin A (Retinol) 34(A) 38 - 98 mcg/dL [facility] Comment:Vitamin supplementat ion within 24 hours prior toblood draw may affect the accuracy of the results.This test was developed and its analytical performancecharacteristics have been determined by [employer] [place], [place]. It hasnot been cleared or approved by the U.S. Food and DrugAdministration. This assay has been validated pursuantto the CLIA regulations and is used for clinicalpurposes.THIS TEST WAS PERFORMED AT:[employer] [facility] SystemsY[address] [place] [address]IFZAYKZLISET BORGES MD,PHD 04/19/2024 12:5 0 PM EST 04/19/2024 12:50 PM EST us Generic External Data Provider LAB BLOOD ORDERAB LES Final Result Performing Organization Address [facility] Co de Phone Number [facility] [address] [place] [phone] * C-reactive Protein (04/19/2024 12:50 PM EST) C Reactive Protein <0.10 < or = 0.50 mg/dL [facility] 04/19/2024 12:5 0 PM EST 04/19/2024 12:50 PM EST Generic External Data Provider LAB BLOOD ORDERAB LES Final Result Performing Organization Address [facility] [address] [place] [phone] * Vitamin B1 (04/19/2024 12:50 PM EST) Vitamin B1 10 8 - 30 nmol/L [facility] Comment:Vitamin supplementat ion within 24 hours prior toblood draw may affect the accuracy of the results.This test was developed and its analytical performancecharacteristics have been determined by [employer] [place], [place]. It hasnot been cleared or approved by the U.S. Food and DrugAdministration. This assay has been validated pursuantto the CLIA regulations and is used for clinicalpurposes.THIS TEST WAS PERFORMED AT:[id number] [place] [address]VRUZZQZLISET BORGES MD,PHD 04/19/2024 12:5 0 PM EST 04/19/2024 12:50 PM EST us Generic External Data Provider LAB BLOOD ORDERAB LES Final Result Performing Organization Address [facility]/ZIP Co de Phone Number [facility] [address] [place] [phone] * Hemoglobin A1c (04/19/2024 12:50 PM EST) Hemoglobin A1c 4.9 <6.0 % [facility] Comment:Hemoglobin A1C Refer ence Range Adults: 4.8 - 6.0 % Non diabetic: < 6.0 % Goal: < 7.0 %Additional Action Suggested: > 8.0 %Note: Hemoglobin A1c results are invalid for patients with abnormal amounts of HbF. Blood transfusions may impact the HbA1c concentration in the patient sample. Estimated Average Glucose 94 mg/dL [facility] Comment:eAG = Estimated ave rage glucose which is %A1C expressed asaverage glucose, using the formula of the P2M-ZdnzixrPelknum Glucose study (ADAG), Diabetes Care, Vol.31,#8,2007 04/19/2024 12:5 0 PM EST 04/19/2024 12:50 PM EST us Generic External Data Provider LAB BLOOD ORDERAB LES Final Result Performing Organization Address [facility]/ZIP Co de Phone Number [facility] [address] [place] [phone] * Ferritin (04/19/2024 12:50 PM EST) Pathologist [facility] Ferritin 25 10 - 250 ng/mL [facility] 04/19/2024 12:5 0 PM EST 04/19/2024 12:50 PM EST us Generic External Data Provider LAB BLOOD ORDERAB LES Final Result Performing Organization Address [facility] Co de Phone Number [facility] [address] [place] [phone] * Lipid Panel, Standard (04/19/2024 12:50 PM EST) Triglycerides 96 <150 mg/dL [facility] Comment:Desirable Triglyceri de: less than 150 mg/dLBorderline High Triglyceride 150-199 mg/dLHigh Triglyceride: 200-499 mg/dLVery High Triglyceride: greater than or equal to 5OO mg/dL Cholesterol 167 <200 mg/dL [facility] Comment:Desirable Cholestero l: less than 200 mg/dLBorderline High Cholesterol: 200-239 mg/dLHigh Cholesterol: greater than 239 mg/dL LDL Cholesterol Calculated 90 <100 mg/dL [facility] Comment:Desirable LDL: less than 100 mg/dLNear Optimal/Above Optimal LDL: 110- 129 mg/dLBorderline High LDL: 130-159 mg/dLHigh LDL: 160-189 mg/dLVery High LDL: greater than or equal to 190 mg/dL HDL Cholesterol 58 >40 mg/dL [facility] Comment:Desirable HDL: great er than 40 mg/dL Note: This HDL assay may give artificially low results in patients with liver disease. 04/19/2024 12:5 0 PM EST 04/19/2024 12:50 PM EST us Generic External Data Provider LAB BLOOD ORDERAB LES Final Result [facility] [address] [place] [address] [phone] * (ABNORMAL) Comprehensive Metabolic Panel (04/19/2024 12:50 PM EST) Sodium 141 135 - 145 mmol/L [facility] Potassium 3.9 3.3 - 5.1 mmol/L [facility] Chloride 108 96 - 108 mmol/L [facility] Carbon Dioxide 26 22 - 29 mmol/L [facility] Anion Gap 11(L) 12 - 20 [facility] Urea Nitrogen (BUN) 11 9 - 16 mg/dL [facility] Creatinine, Serum 0.58 0.5 - 1.4 mg/dL [facility] Estimated Glomerular Filt Rate >60 [facility] Comment:Chronic Kidney Disea se: Estimated GFR < 60 mL/min/1.87w8Vphhtn Kidney Disease: Estimated GFR < 15 mL/min/1.73m2 Glucose 78 60 - 115 mg/dL [facility] Calcium 8.5 8.4 - 10.2 mg/dL [facility] Bilirubin, Total 0.2 0.0 - 1.0 mg/dL [facility] Aspartate Amino Transferase 22 5 - 31 U/L [facility] Alanine Aminotransferase 14 0 - 31 U/L [facility] Total Protein 7.1 6.5 - 8.0 g/dL [facility] Albumin Level 3.7 3.5 - 5.0 g/dL [facility] Alkaline Phosphatase 45 39 - 117 U/L [facility] 04/19/2024 12:5 0 PM EST 04/19/2024 12:50 PM EST us Generic External Data Provider LAB BLOOD ORDERAB LES Final Result Performing Organization Address City/State/[facility] Co de Phone Number [facility] [address] [facility] [place] [phone] * BI Mammogram Screening Tomosynthesis Bilateral (01/12/2024 2:04 PM EDT) Anatomical Region Laterality Modality Breast Bilateral Mammography 01/12/2024 2:04 PM EDT Narrative 01/22/2024 7:43 PM EST ? [facility] ? [address] ?[place] [address] ? Mammography Report ? Signed ? Patient: Harryi,Chantell M ?MR#: [id number] ? : 1975 ?Acct:[id number] ? Age/Sex: 48 / F ?ADM Date: 11//24 ? Loc: HO.MAMMO ? Attending Dr: Mehran Garcia MD ? Ordering Physician: Mehran Calloway MD ?Res ?? ults: 1Negative ? Date of Service: 01/12/24 ?Follow Up: 1 Year From Orig ?? inal Mammogram ? Procedure(s): MM tomosynthesis screening BI ?? Accession Number(s): [id number] ? cc: Mehran Calloway MD ? EXAMINATION: [...] ??Pastora Ho DO ??01/22/2024 07:41 PM EST ?? RP ? Dictated By: ?Pastora Ho DO ? Signed By: ?<Electronically signed by Pastora Ho, DO in OV> ? 01/22/24 1941 ? DD/ 1404 ? TD/TT: 01/12/24 1418 ? Lawyer Criminal: ? Procedure Note Donotuseinterpreter, Image - 01/22/2024 [facility] [address] [place], [place] [address] Mammography Report Signed Patient: Chantell Hairston MMR#: [id number] : 1975Acct:[id number] Age/Sex: 48 / FADM Date: 01/12/24 Loc: HO.MAMMO Attending Dr: Mehran Garcia MD Ordering Physician: Mehran Calloway ults: 1Negative Date of Service: 01/12/24Follow Up: 1 Year From Orig inal Mammogram Procedure(s): MM tomosynthesis screening BI Accession Number(s): [id number] cc: Mehran Calloway MD EXAMINATION: MM SCREENING [...] by Pastora Ho DO in OV> 01/22/24 194 DD/ 1404 TD/TT: 01/12/24 1418 Lawyer Criminal: Mehran Garcia MD IMG BI PROCEDURES Edited Result - Final * HEPATITIS C AB W/REFL TO HCV RNA, QN, PCR (10/17/2019 9:05 AM EDT) HEPATITIS C ANTIBODY NON-REACT TAD NON-REACT TAD [facility] INDEX 0.01 <1.00 [facility] Comment: ?? HCV antibody was non-reactive. There is no laboratory ?? evidence of HCV infection. ?? In most cases, no further action is required. However, if recent HCV exposure is suspected, a test for HCV RNA (test code 03195) is suggested. ?? For additional information please refer to http://[employer]/faq/RNU57i6 (This link is being provided for informational/ educational purposes only.) ?? HEPATITIS C ANTIBODY NON-REACT TAD NON-REACT TAD [facility] INDEX 0.01 <1.00 [facility] Comment: ?? HCV antibody was non-reactive. There is no laboratory ?? evidence of HCV infection. ?? In most cases, no further action is required. However, if recent HCV exposure is suspected, a test for HCV RNA (test code 40845) is suggested. ?? For additional information please refer to http://[employer]/faq/PAL76f8 (This link is being provided for informational/ educational purposes only.) ?? 10/17/2019 9:05 AM EDT Mehran Garcia MD HISTORICAL/NON ORD ERABLE LABS Final Result [facility] [address] * HIV 1/2 ANTIGEN/ANTIBODY,FOURTH GENERATION W/RFL (10/17/2019 9:05 AM EDT) HIV-1/2 ANTIGEN AND ANTIBODIES, 4TH GENERATION W/ REFLEX NON-REACT TAD NON-REACT TAD [facility] Comment: HIV-1 antigen and HIV-1/HIV-2 [...] ? For additional information please refer to http://education.[employer]/faq/GBA056 (This link is being provided for informational/ educational purposes only.) ? The performance of this assay has not been clinically validated in patients less than 2 years old. ?? 10/17/2019 9:05 AM EDT Mehran Garcia MD LAB BLOOD ORDERABL ES Final Result Performing Organization Address City/State/ZIP Co mn Phone Number [facility] [address] * Pap Smear (07/15/2019) Pap Negative for intraephithelial lesion or malignancy Negative for intraephithelial lesion or malignancy, Other HPV Undetected Undetected, Indeterminate, Quantitative, Not Detected [facility] Provider HEALTH MAINTENANCE Final Result from Last 3 Months or Most Recently Relevant to Health Maintenance [place] [address] [place] [address] [place] [phone] Care Teams Industrial Hire Sales Assistant Relationship Specialty Start Date End Date Mehran Calloway MD [address] [place] [phone] PCP - General Internal Medicine 06/10/19
--- OUTSIDE RECORDS SUMMARY | 2024-06-10 12:26 | XMS_ITS | Encounter Summary ---
Author Organization [employer] Address [address] [place] [address] [place] [address] Care Team Providers Care Call Worker Name Role Phone Mehran Calloway MD Primary Care Prov ider Reason for Visit * Reason Comments Med Refill Encounter Details Date Type Department Care Team ([facility] st Contact Info) Description 09/30/2022 Refill [facility] [address] [place], [place] [phone] Mehran Calloway MD [address] [place] [address] Acquired hypothyroidism Social History Tobacco Use Types [...] documented as of this encounter Care Teams Call Worker Relationship Specialty Start Date End Date Mehran Calloway MD [address] [place] [phone] PCP - General Internal Medicine 06/10/19 documented as of this encounter
--- OUTSIDE RECORDS SUMMARY | 2024-06-10 12:26 | XMS_ITS | Clinical Summary ---
Author Organization [employer] [facility] ity Address [address] [place] [address] Care Team Providers Care Oracle Database Administrator Name Role Phone Ida Lang MD Primary [...] Procedure Name Priority Date/Time Associated Diagnosis Comments [facility] SCREENING DIGITAL Routine 01/05/2018 3:56 PM EDT Encounter for screening mammogram for malignant neoplasm of breast from Last 3 Months or Most Recently Relevant to Health Maintenance Results * [facility] SCREENING [facility] (01/05/2018 3:56 PM EDT) Anatomical Region Laterality Modality Mammography 01/05/2018 1:59 PM EDT Narrative 01/05/2018 3:56 PM EDT [facility] Diagnostic Imaging Department [address] [place] [phone] Patient: ??CHANTELL TAVARES ?/Age/Sex: 1975 - 42 - F Unit#: ??[id number] ? Location/Status: ??SPDIMAM/REG CLI ? Mnemonic/Ordering Site: ??DIGSC/SPMAM Ordering Physician: ??IDA LANG MD [facility] Screening Digital - 01/05/18 - 1458 EXAM: [facility] Screening Digital EXAM DATE AND TIME: 01/05/2018 2:59 PM HISTORY: ??Screening. COMPARISON: ??08/18/16 TECHNIQUE: CC and MLO views of both breasts were obtained using full field digital mammography. Bilateral digital breast tomosynthesis was performed in the MLO projection. Computer aided detection with the X2IMPACT.2-H was employed. TISSUE DENSITY: b. There are [...] Routine screening mammogram BILATERAL in 1 year. 79726, 74598 3342F, 7025F Dictating Physician: ??FLETCHER LUNA MD Electronically Signed by: ??FLETCHER LUNA MD Dic Date/Time: ??01/05/18 1555 Sign date/Time: ??01/05/18 1556 Procedure Note Fletcher Luna MD - 03/01/2022 [facility] Diagnostic Imaging Department [address] [place] [address] Patient: CHANTELL TAVARES /Age/Sex: 1975 - 42 - F Unit#: [id number] Location/Status: [facility] Mnemonic/Ordering Site: [facility] Ordering Physician: IDA LANG MD [facility] Screening Digital - 01/05/18 - 1458 EXAM: [facility] Screening Digital EXAM DATE AND TIME: 01/05/2018 2:59 PM HISTORY: Screening. COMPARISON: 08/18/16 TECHNIQUE: CC and MLO views of both breasts were obtained using fullfield digital mammography. Bilateral digital breast tomosynthesis was performedin the MLO projection. Computer aided detection with the X2IMPACT.2-Rizzomaas employed. TISSUE DENSITY: b. There are scattered [...] Routine screening mammogram BILATERAL in 1 year. 99229, 07167 3342F, 7025F Dictating Physician: FLETCHER LUNA MD Electronically Signed by: FLETCHER LUNA MD Dic Date/Time: 01/05/18 1555 Sign date/Time: 01/05/181555 Ida Lang MD IMG BI PROCEDURES Final Result from Last 3 Months or Most Recently Relevant to Health Maintenance Care Teams Oracle Database Administrator Relationship Specialty Start Date End Date Ida Lang MD PCP - General Internal Medicine 11/20/17
--- OUTSIDE RECORDS SUMMARY | 2024-06-10 12:26 | XMS_ITS | Encounter Summary ---
Author Organization [employer] Address [address] [place] [address] [place] [address] Care Team Providers Care Product Tester Fiberglass Name Role Phone Mehran Calloway MD Primary Care Prov ider Reason for Visit * Reason Comments Med Refill Encounter Details Date Type Department Care Team ([facility] st Contact Info) Description 11/04/2022 Refill [facility] [address] [place], [place] [phone] Mehran Calloway MD [address] [place] [address] Acquired hypothyroidism Social History Tobacco Use Types [...] documented as of this encounter Care Teams Product Tester Fiberglass Relationship Specialty Start Date End Date Mehran Calloway MD [address] [place] [address] PCP - General Internal Medicine 06/10/19 documented as of this encounter
== END 2024-06-10 10:57 | disposition home or self-care (01) ==
LOC: HO.HBS 10:57
PROVIDERS: PCP Internal Medicine; Visit Provider Physician Assistant Surgical
DX: E66.3 Overweight (principal); Z68.29 Body mass index [BMI] 29.0-29.9, adult; Z90.3 Acquired absence of stomach [part of]; Z98.84 Bariatric surgery status
CPT/HCPCS: 99214; G2211

== ENCOUNTER → 2024-06-10 10:57 | Outpatient (BNVA) | payer OTHER, SELFPAY | PROVIDERS: PCP Internal Medicine; Visit Provider Physician Assistant Surgical | DX: E66.3 Overweight (principal); Z98.84 Bariatric surgery status ==

== ENCOUNTER 2024-09-17 13:31 | Outpatient (REF) | payer OTHER, SELFPAY ==
--- OUTSIDE RECORDS SUMMARY | 2024-09-17 14:13 | XMS_ITS | Clinical Summary ---
Author Organization [employer] Address [address] [facility] 7[address] [place] [address] Care Team Providers Care Chargemaster Specialist Name Role Phone Mehran Calloway MD Primary [...] 90 tablet 1 5 11/05/19 25 Active oxybutynin XL (Ditropan XL) 5 MG 24 hr tablet Take 1 tablet (5 mg) by mouth Once per day. Do not crush, chew, or split. 90 tablet 3 5 09/18/19 26 Active linaCLOtide (Linzess) 145 MCG capsule Take 1 capsule (145 mcg) by mouth before breakfast. Do not crush or chew. 90 capsule 3 5 09/18/19 Active Active Problems Problem Noted Date Diagnosed Date Mixed stress and urge urinary incontinence 09/17 Assessment & Plan (09/17/2024 1:30 PM EDT): Will start on oxybutinin, call back if not improving Overweight (BMI 25.0-29.9) 09/26/2023 Assessment & Plan (09/17/2024 1:29 PM EDT): Followed by weight clinic, she was on phentermine due to weight gain related to cravings Assessment & Plan (09/26/2023 9:51 PM EDT): [...] years Acquired hypothyroidism 05/30/2022 Assessment & Plan (09/17/2024 1:29 PM EDT): New labs ordered for guidance of therapy, she is taking levothyroxine 75mcg, no changes will be made, clinically euthyroid Assessment & Plan (05/08/2024 2:09 PM EST): [...] performed 1 weeks prior to visit on november. Assessment & Plan (07/24/2023 1:26 PM EDT): [...] current treatment. Constipation 03/23/2022 Assessment & Plan (09/17/2024 1:30 PM EDT): Will start on linzess, continue high fiber diet Assessment & Plan (05/30/2022 4:31 PM EDT): [...] Encounters Date Type Department Care Team Description 09/17/2024 1:00 PM EDT Office Visit [facility] [address] [place] [address] Mehran Calloway MD Acquired hypothyroidism (Primary Dx); Overweight (BMI 25.0-29.9); Constipation, unspecified constipation type; Mixed stress and urge urinary incontinence 09/17/2024 Travel 09/16/2024 Telephone [facility] [address] [place], [place] [phone] Mehran Calloway MD Chart Prep 09/09/2024 Patient Outreach [facility] [address] [place], [place] [phone] Mehran Calloway MD Pre-visit Planning (Pre visit planning LVM ) from Last 3 Months Immunizations Immunization Administration Dates Next Due Hep A / Hep B 11/27/2009 Hep B, Unspecified 06/29/2009,05/29/2009 Thien SARS-CoV-2 Vaccination 06/18/2020 Tdap 11/26/2021 Social [...] Sign Reading Time Taken Comments Blood Pressure 108/60 09/17/2024 1:09 PM EDT Pulse 60 09/17/2024 1:09 PM EDT Temperature 36.9 C (98.5 F) 09/17/2024 1:09 PM EDT Respiratory Rate 16 09/17/2024 1:09 PM EDT Oxygen Saturation 99% 09/17/2024 1:09 PM EDT Inhaled Oxygen Concentration - - Weight 78 kg (172 lb) 09/17/2024 1:09 PM EDT Height 154.9 cm (5' 1 ) 09/17/2024 1:09 PM EDT Body Mass Index 32.5 09/17/2024 1:09 PM EDT Plan of Treatment Health Maintenance Due Date Last Done Comments CT Colonography 1976 FIT DNA/Cologuard 1975 FIT 1975 FOBT 1975 Sigmoidoscopy 1975 Disability Screening 1976 Alcohol/Substance Use Screening 1988 Family Planning (PISQ) 1991 Depression Screening 05/24/2024 05/25/2023, 05/25/19 24 SDOH Screening 05/24/2024 05/25/2023 Tobacco Screening 07/20/2024 07/21/2023 Influenza Vaccine (#1) 2024 , 01/15/2023, 11/21/2021, Additional history exists Colonoscopy 08/12/2025 Colorectal Cancer Screening 08/12/2025 Mammogram 01/11/2026 01/12/2024, 12/12, 12/28/2021, Additional history exists Zoster Vaccines (1 of 2) 2026 Cervical Cancer Screening 09/16/2029 HPV/Cotest 09/16/2029 09/16/2024, 07/15/2019 Pap Smear 09/16/2029 09/16/2024, 07/15/2019 DTaP/Tdap/Td Vaccines (2 - Td or Tdap) [...] Completed 01/03/2024, 07/2022, 11/21/2021, Additional history exists HIB Vaccines Aged Out No longer eligi ble based on patient's age to complete this topic HPV Vaccines Aged Out No longer eligi ble based on patient's age to complete this topic IPV Vaccines Aged Out No longer eligi ble based on patient's age to complete this topic Meningococcal B Vaccine Aged Out No l onger eligible based on patient's age to complete this topic Meningococcal Vaccine Aged Out No ameena hari eligible based on patient's age to complete this topic Pneumococcal Vaccine: Pediatrics (0 to 5 Years) and At-Risk Patients (6 to 49) Years Aged Out No longer eligible based on patient's age to complete this topic RSV under 20 months Aged Out No longe r eligible based on patient's age to complete this topic Rotavirus Vaccines Aged Out No longer eligible based on patient's age to complete this topic Procedures Procedure Name Priority Date/Time Associated Diagnosis Comments HM PAP/HPV Routine 09/16/2024 2:52 PM EDT BI MAMMOGRAM SCREENING TOMOSYNTHESIS BILATERAL Routine 01/12/2024 2:04 PM EDT ZZZ HISTORICAL HEPATITIS C AB W/REFL TO HCV RNA, QN, PCR Routine 10/17/2019 9:05 AM EDT HIV 1/2 ANTIGEN/ANTIBODY, FOURTH GENERATION W/RFL Routine 10/17/2019 9:05 AM EDT from Last 3 Months or Most Recently Relevant to Health Maintenance Results * HM PAP/HPV (09/16/2024 2:52 PM EDT) Pap Smear 1. NILM 1. NILM HPV Undetected Undetected, Indeterminate , Quantitative, Not Detected Mehran Garcia MD HEALTH MAINTENANCE Final Result * BI Mammogram Screening Tomosynthesis Bilateral (01/12/2024 2:04 PM EDT) Anatomical Region Laterality Modality Breast Bilateral Mammography 01/12/2024 2:04 PM EDT Narrative 01/22/2024 7:43 PM [facility] [address] [place] [address] Mammography Report Signed Patient: Chantell Hairston MR#: [id number] : 1975 Acct:[id number] Age/Sex: 48 / F ADM Date: 01/12/24 Loc: HO.MAMMO Attending Dr: Mehran Garcia MD Ordering Physician: Mehran Calloway MD Res ults: 1Negative Date of Service: 01/12/24 Follow Up: 1 Year From Orig inal Mammogram Procedure(s): MM tomosynthesis screening BI Accession Number(s): [id number] cc: Mehran Calloway MD EXAMINATION: MM SCREENING [...] by: Pastora Ho DO 01/22/2024 07:41 PM [facility] Dictated By: Pastora Ho DO Signed By: <Electronically signed by Pastora Ho DO in OV> 01/22/24 1941 DD/ 1404 TD/TT: 01/12/24 1418 Pillar Man: Procedure Note Donotuseinterpreter, Image - 01/22/2024 [facility] [address] [place] [address] Dr. El, [place] [address] Mammography Report Signed Patient: Chantell Hairston MMR#: [id number] : 1975Acct:[id number] Age/Sex: 48 / FADM Date: 01/12/24 Loc: HO.MAMMO Attending Dr: Mehran Garcia MD Ordering Physician: Mehran Calloway ults: 1Negative Date of Service: 01/12/24Follow Up: 1 Year From Orig ina Mammogram Procedure(s): MM tomosynthesis screening BI Accession Number(s): [id number] cc: Mehran Calloway MD EXAMINATION: MM SCREENING [...] 01/22/24 1941 DD/ 1404 TD/TT: 01/12/24 1418 Pillar Man: us Mehran Garcia MD IM BI PROCEDURES Edited Result - Final * HEPATITIS C AB W/REFL TO HCV RNA, QN, PCR (10/17/2019 9:05 AM EDT) HEPATITIS C ANTIBODY NON-REACT TAD NON-REACT TAD [facility] INDEX 0.01 <1.00 [facility] Comment: HCV antibody was non-reactive. There is no laboratory evidence of HCV infection. In most cases, no further action is required. However, if recent HCV exposure is suspected, a test for HCV RNA (test code 11571) is suggested. For additional information please refer to http://[employer].CallFire/faq/TRG21m3 (This link is being provided for informational/ educational purposes only.) HEPATITIS C ANTIBODY NON-REACT TAD NON-REACT TAD [facility] INDEX 0.01 <1.00 [facility] Comment: HCV antibody was non-reactive. There is no laboratory evidence of HCV infection. In most cases, no further action is required. However, if recent HCV exposure is suspected, a test for HCV RNA (test code 31161) is suggested. For additional information please refer to http://[employer]CallFire/faq/JNJ45t7 (This link is being provided for informational/ educational purposes only.) 10/17/2019 9:05 AM EDT Mehran Garcia MD HISTORICAL/NON ORD ERABLE LABS Final Result [facility] [address] * HIV 1/2 ANTIGEN/ANTIBODY,FOURTH GENERATION W/RFL (10/17/2019 9:05 AM EDT) HIV-1/2 ANTIGEN AND ANTIBODIES, 4TH GENERATION W/ REFLEX NON-REACT TAD NON-REACT TAD [facility] Comment: HIV-1 antigen and HIV-1/HIV-2 antibodies were not detected. There is no laboratory evidence of HIV infection. PLEASE NOTE: This information has been disclosed to you from records whose confidentiality may be protected by state law. If your state requires such protection, then the state law prohibits you from making any further disclosure of the information without the specific written consent of the person to whom it pertains, or as otherwise permitted by law. A general authorization for the release of medical or other information is NOT sufficient for this purpose. For additional information please refer to http://[employer].CallFire/faq/WBI225 (This link is being provided for informational/ educational purposes only.) The performance of this assay has not been clinically validated in patients less than 2 years old. 10/17/2019 9:05 AM EDT Mehran Garcia MD LAB BLOOD ORDERABL ES Final Result [facility] [address] [place] [address], from Last 3 Months or Most Recently Relevant to Health Maintenance Insurance [employer] 3 Care Teams Chargemaster Specialist Relationship Specialty Start Date End Date Mehran Calloway MD [address] [place] [address] PCP - General Internal Medicine 06/10/19
--- OUTSIDE RECORDS SUMMARY | 2024-09-17 14:13 | XMS_ITS | Clinical Summary ---
Author Organization [address] [facility] Address [address] [place] [address] Phone Care Team Providers Care Certified Tower Climber Name Role Phone Ida Lang MD Primary Care Provider Unavail able Encounters Date Type Department Care Team Description 08/06/2024 Lab Requisition [facility] - Main Lab [address] [facility] [place] [address] Rasheed Pool MD Encounter for gynecological examination (general) (routine) without abnormal findings from Last 3 Months Social History Tobacco Use Types Packs/Day Years [...] of 3 - 19+ 3-dose series) 1995 Breast Cancer Screening 01/06/2020 01/05/2018 Colorectal Cancer Screening: Colonoscopy 02/09/2022 Depression Screening 02/09/2022 HIV Screening 02/09/2022 Hepatitis C Screening 02/09/2022 Social Influencers of Health Screening 02/09/2022 COVID-19 Vaccine (1 - 2023-2 5 season) 2023 Influenza Vaccine (#1) 2024 Cervical Cancer Screening: HPV 08/02/2029 08/02/2024 HIB Vaccines Aged Out No longer eligi [...] 5 Years) and At-Risk Patients (6 to 49 Years) Aged Out No longer eligi ble based on patient's age to complete this topic RSV Immunization Patients Un partha 20 months Aged Out No longer eligible b ased on patient's age to complete this topic Varicella Vaccines Aged Out No longer eligible based on patient's age to complete this topic Procedures Procedure Name Priority Date/Time Associated Diagnosis Comments CHLAMYDIA TRACHOMATIS AND NEISSERIA GONORRHOEAE BY TMA, THINPREP Routine 08/02/2024 12:00 AM EDT Encounter for gynecological examination (general) (routine) without abnormal findings PAP SMEAR Routine 08/02/2024 12:00 AM EDT Encounter for gynecological examination (general) (routine) without abnormal findings HPV WITH REFLEX GENOTYPE Routine 08/02/2024 12:00 AM EDT Encounter for gynecological examination (general) (routine) without abnormal findings LAUREN SCREENING DIGITAL Routine 01/05/2018 3:56 PM EDT Encounter for screening mammogram for malignant neoplasm of breast from Last 3 Months or Most Recently Relevant to Health Maintenance Results * Chlamydia trachomatis and neisseria gonorrhoeae by tma, thinprep (08/02/2024 12:00 AM EDT) N. gonorrhoeae, RNA Probe Negative Negative LAB MICROBIOLOGY METHOD 08/06/2024 12:24 PM EDT [facility] Chlamydia, RNA Probe Negative Negative LAB MICROBIOLOGY METHOD 08/06/2024 12:24 PM EDT [facility] Brushing/Spatula Cervix uteri structure / Unknown 08/02/2024 08/06/2024 7:19 AM EDT Rasheed Pool MD LAB CYTOLOGY ORDERABLES Final Result Performing Organization Address City/[facility]/ZIP Co de Phone Number [facility] [address] [place] [address], * HPV with reflex genotype (08/02/2024 12:00 AM EDT) HPV Negative Negative LAB MICROBIOLOGY METHOD 08/06/2024 12:57 PM EDT [facility] Brushing/Spatula Cervix uteri structure / Unknown 08/02/2024 08/06/2024 7:19 AM EDT Rasheed Pool MD LAB MOLECULAR DIAGNOSTICS ALEJANDRA TREJO Final Result Performing Organization Address [facility]/ZIP Co de Phone Number [facility] [address] [place] [address], * Pap smear (08/02/2024 12:00 AM EDT) Interpretation Negative for intraepithelial lesion or malignancy 08/06/2024 4:38 PM EDT [facility] Clinical Information IUD 08/06/2024 4:38 PM EDT [facility] General Categorization Negative 08/06/2024 4:38 PM EDT [facility] Other Findings Shift in kiran suggestive of bacterial vaginosis 08/06/2024 4:38 PM EDT [facility] Specimen Adequacy Satisfactory for evaluation, endocervical/cosby sformation zone component present 08/06/2024 4:38 PM EDT [facility] Pap Methodology Liquid Based Pap Test 08/06/2024 4:38 PM EDT [facility] Disclaimer Note: This pap test could not be imaged utilizing the [employer] Imaging System and required a manual review. The Pap test is a screening test which carries an inherent false negative rate. These test results should be correlated with the patient's clinical findings and history. This Pap test was processed using an automated screening system. Technical cytopathology services provided by [facility], at [address] [place] [address] (CLIA # [id number]/Benson Cervantes MD, Finance Effectiveness Manager.) 08/06/2024 4:38 PM EDT [facility] Console Pap Interpretation Reported 08/06/2024 4:38 PM EDT [facility] Brushing/Spatula Cervix uteri structure / Unknown 08/02/2024 08/06/2024 7:19 AM EDT us Rasheed Pool MD LAB CYTOLOGY ORDERABLES Final Result [facility] [address] [place] [address], * LAUREN SCREENING DIGITAL (01/05/2018 3:56 PM EDT) Anatomical Region Laterality Modality Mammography 01/05/2018 1:59 PM EDT Narrative 01/05/2018 3:56 PM EDT [facility] Diagnostic Imaging Department [address] [place] [address] Patient: TAVARESCHANTELL /Age/Sex: 1975 - 42 - F Unit#: [id number] Location/Status: SPDIMAM/REG CLI Mnemonic/Ordering Site: [facility] Ordering Physician: IDA LANG MD [facility] Screening Digital - 01/05/18 - 1458 EXAM: [facility] Screening Digital EXAM DATE AND TIME: 01/05/2018 2:59 PM HISTORY: Screening. COMPARISON: 08/18/16 TECHNIQUE: CC and MLO views of both breasts were obtained using full field digital mammography. Bilateral digital breast tomosynthesis was performed in the MLO projection. Computer aided detection with the [employer]-Craftistas was employed. TISSUE DENSITY: b. There are scattered areas of fibroglandular density. FINDINGS: No suspicious masses, grouped microcalcifications, or areas of architectural distortion are seen. A few benign microcalcifications are present in the anteromedial left breast, unchanged. The skin and vascularity are unremarkable. IMPRESSION: Stable mammographic appearance of the breasts. No evidence of malignancy is seen. A negative mammogram in the presence of a clinically suspicious palpable abnormality does not preclude the possibility of malignancy or alter the indications for biopsy. BI-RADS: Category 2: Benign RECOMMENDATION(S): 1: Routine screening mammogram BILATERAL in 1 year. 19754, 17006 3342F, 7025F Dictating Physician: FLETCHER LUNA MD Electronically Signed by: FLETCHER LUNA MD Dic Date/Time: 01/05/181554 Sign date/Time: 01/05/181555 Procedure Note Fletcher Luna MD - 03/01/2022 [facility] Diagnostic Imaging Department [address] [place], [place] [id number] Patient: TAVARES,CHANTELL Arvizu./Age/Sex: 1975 - 42 - F Unit#: [id number] [facility]Ordering Site[facility] Ordering Physician: IDA LANG MD [facility] Screening Digital - 01/05/18 - 1458 EXAM: [facility] Screening Digital EXAM DATE AND TIME: 01/05/2018 2:59 PM HISTORY: Screening. COMPARISON: 08/18/16 TECHNIQUE: CC and MLO views of both breasts were obtained using fullfield digital mammography. Bilateral digital breast tomosynthesis was performedin the MLO projection. Computer aided detection with the [employer] 7.2-Lumiyas employed. TISSUE DENSITY: b. There are scattered [...] Routine screening mammogram BILATERAL in 1 year. 74924, 86446 3342F, 7025F Dictating Physician: FLETCHER LUNA MD Electronically Signed by: FLETCHER LUNA MD Dic Date/Time: 01/05/181554 Sign date/Time: 01/05/181555 Ida Lang MD IMG BI PROCEDURES Final Result from Last 3 Months or Most Recently Relevant to Health Maintenance Insurance [facility] Care Teams Certified Tower Climber Relationship Specialty Start Date End Date Ida Lang MD PCP - General Internal Medicine 11/20/17
[2024-09-17 15:12] LABS: MANUAL DIFF FLAG NO
[2024-09-17 15:28] LABS: Hematocrit 32.0 % (37.0-47.0); Hemoglobin 10.4 g/dl (12.0-16.0); Imm Gran Abs Auto 0.02 X10*3/uL (0.00-0.03); Imm Gran Pct Auto 0.3 % (0.0-0.4); Lymphocytes Absolute Auto 2.7 X10*3/uL (1.2-4.9); Mean Corpuscular HGB Conc 32.5 g/dl (31.0-35.0); Mean Corpuscular Hemoglobin 28.1 pg (27.0-33.0); Mean Corpuscular Volume 86.5 fL (80.0-98.0); NRBC Abs Auto 0.000 X10*3/uL (0.0-0.012); NRBC Pct Auto 0.0 /100WBC (0.0-0.2); Platelet Count 211 X10*3/uL (160-400); Red Blood Count 3.70 X10*6/uL (4.20-5.50); White Blood Count 7.1 X10*3/uL (4.8-10.8)
[2024-09-17 15:50] LABS: Alanine Aminotransferase 14 U/L (0-31); Albumin Level 3.8 g/dL (3.5-5.0); Alkaline Phosphatase 40 U/L (39-117); Anion Gap 10 (12-20); Aspartate Amino Transferase 22 U/L (5-31); Blood Urea Nitrogen 14 mg/dL (9-16); Calcium 9.0 mg/dL (8.4-10.2); Carbon Dioxide 30 mmol/L (22-29); Chloride 107 mmol/L (96-108); Cholesterol 154 mg/dL (<200); Estimated Glomerular Filt Rate > 60; HDL Cholesterol 43 mg/dL (>40); Potassium 4.0 mmol/L (3.3-5.1); Sodium 143 mmol/L (135-145); Total Protein 6.7 g/dL (6.5-8.0); Triglycerides 151 mg/dL (<150)
== END 2024-09-17 13:32 | disposition home or self-care (01) ==
LOC: HO.CHCLDS 13:31
PROVIDERS: Visit Provider Internal Medicine
DX: E66.3 Overweight (principal); E03.9 Hypothyroidism, unspecified
CPT/HCPCS: 36415; 80053; 80061; 84443; 85025

== ENCOUNTER 2024-09-26 13:08 | Outpatient (AMB) | payer OTHER, SELFPAY ==
--- NOTE | 2024-09-26 13:03 | A.OFFVIS_ITS ---
VS Expanded 09/26/24 13:07 Height 5 ft 1.5 in Weight 172 lb BMI 32.0 Intake Visit Reasons: (TV) PO LSG 03/03/22 Allergies Iodinated Contrast Media (IV Contrast Dye) Allergy (Severe, Verified 08/30/23 10:57) Anaphylaxis shellfish derived Allergy (Severe, Verified 08/30/23 10:57) Anaphylaxis Medication List - Last Reconciled 09/26/24 by SANCHO Lozoya calcium citrate-vitamin D3 315 mg-6.25 mcg (250 unit) 1 tab PO BID cetirizine 10 mg PO DAILY epinephrine IM DIRECTED fluticasone propionate 50 mcg/actuation 2 sprays intranasal DAILY inulin (Fiber Gummies) 2 grams PO DAILY ketotifen fumarate 0.025%(0.035%) (Allergy Eye (ketotifen)) 1 drp ophthalmic (eye) BID levothyroxine 100 mcg PO DAILY montelukast 10 mg PO BEDTIME vitamin A palmitate 10,000 units PO DAILY zinc gluconate 30 mg PO DAILY HPI Comments Details: This?is a?49?yo female who is s/p LSG 03/03/2022. Weight stable since last OV 1 month ago. No complaints of nausea, emesis, abdominal pain or reflux, or constipation. Pt started phentermine in April. Reports some dry mouth/tingling while on this. Despite this medication she did not experience weight loss. Was prescribed iron pills by PCP due to low levels. Present meal plan includes: 70g protein minimum wakes 5:30am- takes thyroid med on empty stomach leaves for work 6:30am 7am Isopure protein shake with 8oz fairlife milk 9am 1 egg 12pm protein, veg, optional carb (547 bread or bagel) 3pm yogurt or fruit or egg 6pm protein (often eggs), veg (cucumbers or carrots), carb optional sometimes does not finish all of her meal will also incorporate some fruits taking MVI Exercise routine includes: Treadmill every day plus upper body strength training [facility] Medical History (Updated 07/25/22 @ 13:36 by SANCHO Lozoya) Stress incontinence Cholelithiasis Arthritis Environmental and seasonal allergies Adjustment disorder, unspecified Hypothyroid Surgical History (Updated 08/30/23 @ 10:57 by Svetlana Koch CMA) Hx of appendectomy S/P laparoscopic sleeve gastrectomy History of root canal procedure delivery delivered Family History Mother Anxiety Developmental delay Father Diabetes Daughter No known health problems Daughter Premature baby Son Hypoglycemia Eye abnormalities Obstructive sleep apnea (adult) (pediatric) Developmental delay Social History Household Members: Spouse and Children Housing: House Are you a primary lawn care technician to a significant other at home: No Do you presently have visiting nurse or other home services: No Alcohol intake: never Patient Tobacco Use Status: Never used Tobacco Current occupational status: employed Current occupation: [employer] Telehealth Telehealth Telehealth Platform: Telephone Location of provider rendering services: practice address Location of patient: address on file Patient Identification confirmed using: Name, : Yes Telehealth method: voice only Patient verbally consented to treatment: Yes Patient verbally consented to billing insurance company: Yes Patient informed of any privacy concerns related to visit: Yes Minutes spent on Phone/Video with Pt.: 15 Assessment & Plan Assessment & Plan (1) S/P laparoscopic sleeve gastrectomy: Comment: 03/08/22 Larry Terrazas MD Code(s): Z98.84 - Bariatric surgery status Category: Surgical (2) Obesity: Code(s): E66.9 - Obesity, unspecified Category: Medical Plan Was previously diagnosed as diabetic. Her BMI is now more than 30 and she is again obese. She has tried phentermine 5 months ago but it has not resulted in weight loss and she did not like the side effects. Pt is interested in starting GLP1. Reviewed contraindications, discussed dosing. Discussed need for adequate protein intake while on GLP1s as well as frequent communication with our office. Pt will check in with me weekly and is aware that subsequent Rx will be dependent on frequent communication. She will also be careful to monitor her blood sugars for any hypoglycemia. RTC 3 months. Medications: New tirzepatide (weight loss) (Zepbound) for 4 weeks 2.5 mg (0.5 mL) subcut QWEEK 2 mL 0RF
[2024-09-26 13:07] VITALS: BMI 32.0
--- OUTSIDE RECORDS SUMMARY | 2024-09-26 13:38 | XMS_ITS | Clinical Summary ---
Author Organization 299 [facility] Address [address] [place] [address] Phone Care Team Providers Care Business Agent Name Role Phone Ida Lang MD Primary Care Provider Unavail able Encounters Date Type Department Care Team Description 08/06/2024 Lab Requisition [facility] - Main Lab [address] [facility] [place] [address] Rasheed Pool MD Encounter for [...] LAB MICROBIOLOGY METHOD 08/06/2024 12:24 PM EDT [facility] Chlamydia, RNA Probe Negative Negative LAB MICROBIOLOGY METHOD 08/06/2024 12:24 PM EDT [facility] Brushing/Spatula Cervix uteri structure / Unknown 08/02/2024 08/06/2024 7:19 AM EDT Rasheed Pool MD LAB CYTOLOGY ORDERABLES Final Result Performing Organization Address City/[facility]/ZIP Co de Phone Number [facility] [address] [place] [address], * HPV with reflex genotype (08/02/2024 12:00 AM EDT) HPV Negative Negative LAB MICROBIOLOGY METHOD 08/06/2024 12:57 PM EDT [facility] Brushing/Spatula Cervix uteri structure / Unknown 08/02/2024 08/06/2024 7:19 AM EDT Rasheed Pool MD LAB MOLECULAR DIAGNOSTICS ALEJANDRA TREJO Final Result Performing Organization Address [facility]/ZIP Co de Phone Number [facility] [address] [place] [address], * Pap smear (08/02/2024 12:00 AM EDT) Interpretation Negative for intraepithelial lesion or malignancy 08/06/2024 4:38 PM EDT [facility] Clinical Information IUD 08/06/2024 4:38 PM EDT [facility] General Categorization Negative 08/06/2024 4:38 PM EDT [facility] Other Findings Shift in kiran suggestive of bacterial vaginosis 08/06/2024 4:38 PM EDT [facility] Specimen Adequacy Satisfactory for evaluation, endocervical/cosby sformation zone component present 08/06/2024 4:38 PM EDT [facility] Pap Methodology Liquid Based Pap Test 08/06/2024 4:38 PM EDT [facility] Disclaimer Note: This pap test could not be imaged utilizing the [employer] Imaging System and required a manual review. The Pap test is a screening test which carries an inherent false negative rate. These test results should be correlated with the patient's clinical findings and history. This Pap test was processed using an automated screening system. Technical cytopathology services provided by [facility], at [address] [place] [address] (CLIA # [id number]/Bneson Cervantes MD, Coating Operator.) 08/06/2024 4:38 PM EDT [facility] Console Pap Interpretation Reported 08/06/2024 4:38 PM EDT [facility] Brushing/Spatula Cervix uteri structure / Unknown 08/02/2024 08/06/2024 7:19 AM EDT us Rasheed Pool MD LAB CYTOLOGY ORDERABLES Final Result [facility] [address] [place] [address], * LAUREN SCREENING DIGITAL (01/05/2018 3:56 PM EDT) Anatomical Region Laterality Modality Mammography 01/05/2018 1:59 PM EDT Narrative 01/05/2018 3:56 PM EDT [facility] Diagnostic Imaging Department [address] [place] [address] Patient: TAVARESCHANTELL /Age/Sex: 1975 - 42 - F Unit#: [id number] Location/Status: SPDIMAM/REG CLI Mnemonic/Ordering Site: [facility] Ordering Physician: IDA LANG MD [facility] Screening Digital - 01/05/18 - 1458 EXAM: [facility] Screening Digital EXAM DATE AND TIME: 01/05/2018 2:59 PM HISTORY: Screening. COMPARISON: 08/18/16 TECHNIQUE: CC and MLO views of both breasts were obtained using full field digital mammography. Bilateral digital breast tomosynthesis was performed in the MLO projection. Computer aided detection with the AimWith.2-eSnips was employed. TISSUE DENSITY: b. There are [...] Routine screening mammogram BILATERAL in 1 year. 77657, 14910 3342F, 7025F Dictating Physician: FLETCHER LUNA MD Electronically Signed by: FLETCHER LUNA MD Dic Date/Time: 01/05/181554 Sign date/Time: 01/05/181555 Procedure Note Fletcher Luna MD - 03/01/2022 [facility] Diagnostic Imaging Department [address] [place], [place] [id number] Patient: TAVARES,CHANTELL Arvizu./Age/Sex: 1975 - 42 - F Unit#: [id number] Location/Status: [facility] Mnemonic/Ordering Site: [facility] Ordering Physician: IDA LANG MD [facility] Screening Digital - 01/05/18 - 1458 EXAM: [facility] Screening Digital EXAM DATE AND TIME: 01/05/2018 2:59 PM HISTORY: Screening. COMPARISON: 08/18/16 TECHNIQUE: CC and MLO views of both breasts were obtained using fullfield digital mammography. Bilateral digital breast tomosynthesis was performedin the MLO projection. Computer aided detection with the Direct Access Software 7.2-Ravtias employed. TISSUE DENSITY: b. There are scattered [...] Routine screening mammogram BILATERAL in 1 year. 02752, 88861 3342F, 7025F Dictating Physician: FLETCHER LUNA MD Electronically Signed by: FLETCHER LUNA MD Dic Date/Time: 01/05/181554 Sign date/Time: 01/05/181555 Ida Lang MD IMG BI PROCEDURES Final Result from Last 3 Months or Most Recently Relevant to Health Maintenance Insurance [facility] Care Teams Business Agent Relationship Specialty Start Date End Date Ida Lang MD PCP - General Internal Medicine 11/20/17
--- OUTSIDE RECORDS SUMMARY | 2024-09-26 13:38 | XMS_ITS | Clinical Summary ---
Author Organization [employer] Address [address] [facility] [address] [place] [address] Care Team Providers Care Gathering Worker Name Role Phone Mehran Calloway MD Primary Care Prov ider Allergies Active Allergy Reactions Criticality Noted Date Comments Iodine Hives Low 07/05/2019 Shellfish Allergy 07/19/2023 Medications cetirizine (ZyrTEC) 10 MG tablet Take 1 tablet by mouth 2 times daily. 05/10/19 22 Active EPINEPHrine (Epipen) 0.3 MG/0.3ML injection syringe USE DIRECTED, FOR ANAPHYLAIXS , CALL 911 AFTER USE 09/04/19 22 Active hydrocortisone 2.5 % ointment APPLY TO AFFECTED AREA TWICE A DAY NEEDED 06/12/19 22 Active montelukast (Singulair) 10 MG tablet Take 1 tablet by mouth at bedtime. 06/24/19 22 Active pantoprazole (ProtoNix) 40 MG EC tablet Take 1 tablet by mouth 1 (one) time each day. 02/17/20 22 Active Multiple Vitamin (multivitamin) tablet Take 1 tablet by mouth in the morning. Active levothyroxine (Synthroid, Levoxyl) 75 MCG tabletIndications :Acquired hypothyroidism Take 1 tablet (75 mcg) by mouth Once per day. 90 tablet 1 05/08/19 25 025 Active oxybutynin XL (Ditropan XL) 5 MG 24 hr tablet Take 1 tablet (5 mg) by mouth Once per day. Do not crush, chew, or split. 90 tablet 3 09/18/19 25 026 Active linaCLOtide (Linzess) 145 MCG capsule Take 1 capsule (145 mcg) by mouth before breakfast. Do not crush or chew. 90 capsule 3 09/18/19 25 026 Active ferrous sulfate 325 (65 Fe) MG tabletIndications :Iron deficiency anemia secondary to inadequate dietary iron intake Take 1 tablet (325 mg) by mouth with breakfast. 90 tablet 1 09/25/19 25 Active ferrous sulfate 325 (65 Fe) MG tablet Take 325 mg by mouth with breakfast. 025 Discontinued(R eorder (will not trigger notification to Pharmacy)) Active Problems Problem Noted Date Diagnosed Date [...] Encounters Date Type Department Care Team Description 09/23/2024 Results Follow-Up [facility] [address] [place] [address] Mehran Calloway MD TSH W/Reflex to FT4, CBC auto differential, Comprehensive Metabolic Panel, Lipid Panel, Standard 09/17/2024 1:00 PM EDT Office Visit [facility] [address] [place] [address] Mehran Calloway MD Acquired hypothyroidism (Primary Dx); Overweight (BMI 25.0-29.9); Constipation, unspecified constipation type; Mixed stress and urge urinary incontinence 09/17/2024 Travel 09/16/2024 Telephone [facility] [address] [place] [address] Mehran Calloway MD Chart Prep 09/09/2024 Patient Outreach [facility] [address] [place] [address] Mehran Calloway MD Pre-visit Planning (Pre visit [...] Procedure Name Priority Date/Time Associated Diagnosis Comments LIPID PANEL, STANDARD Routine 09/17/2024 1:32 PM EDT Overweight (BMI 25.0-29.9) COMPREHENSIVE METABOLIC PANEL Routine 09/17/2024 1:32 PM EDT Overweight (BMI 25.0-29.9) CBC WITH AUTO DIFFERENTIAL Routine 09/17/2024 1:32 PM EDT Overweight (BMI 25.0-29.9) TSH W/REFLEX TO FT4 Routine 09/17/2024 1 :32 PM EDT Acquired hypothyroidism HM PAP/HPV Routine 09/16/2024 2:52 PM EDT BI MAMMOGRAM SCREENING TOMOSYNTHESIS BILATERAL Routine 01/12/2024 2:04 PM EDT [facility] HISTORICAL HEPATITIS C AB W/REFL TO HCV RNA, QN, PCR Routine 10/17/2019 9:05 AM EDT HIV 1/2 ANTIGEN/ANTIBODY, FOURTH GENERATION W/RFL Routine 10/17/2019 9:05 AM EDT from Last 3 Months or Most Recently Relevant to Health Maintenance Results * TSH W/Reflex to FT4 (09/17/2024 1:32 PM EDT) TSH reflex Free T4 0.98 0.32 - 4.0 uIU/mL [facility] Blood Venous blood specimen / Unknown 09/17/2024 1:32 PM EDT 09/17/2024 3:03 PM EDT Mehran Garcia MD LAB BLOOD ORDERABL ES Final Result [facility] [address] [place] [phone] * (ABNORMAL) CBC auto differential (09/17/2024 1:32 PM EDT) White Blood Count 7.1 4.8 - 10.8 X10*3/uL [facility] Red Blood Count 3.70(L) 4.20 - 5.50 X10*6/uL [facility] Hemoglobin 10.4(L) 12.0 - 16.0 g/dl [facility] Hematocrit 32.0(L) 37.0 - 47.0 % [facility] Mean Corpuscular Volume 86.5 80.0 - 98.0 fL [facility] Mean Corpuscular Hemoglobin 28.1 27.0 - 33.0 pg [facility] Mean Corpuscular HGB Conc 32.5 31.0 - 35.0 g/dl [facility] Red Cell Distribution Width 13.0 11.0 - 16.0 % [facility] Platelet Count 211 160 - 400 X10*3/uL [facility] Mean Platelet Volume 11.0 9.4 - 12.3 fL [facility] Neutrophils Percent Auto 51.1 45 - 73 % [facility] Imm Gran Pct Auto 0.3 0.0 - 0.4 % [facility] Lymphocytes Percent Auto 37.9 20 - 40 % [facility] Monocytes Percent Auto 7.6 2 - 11 % [facility] Eosinophils Percent Auto 2.5 0 - 4 % [facility] Basophils Percent Auto 0.6 0 - 2 % [facility] NRBC Pct Auto 0.0 0.0 - 0.2 /100WBC [facility] Neutrophils Absolute Auto 3.6 2.0 - 8.3 x10*3/uL [facility] Imm Gran Abs Auto 0.02 0.00 - 0.03 X10*3/uL [facility] Lymphocytes Absolute Auto 2.7 1.2 - 4.9 X10*3/uL [facility] Monocytes Absolute Auto 0.5 0.1 - 1.2 X10*3/uL [facility] Eosinophils Absolute Auto 0.2 0.0 - 0.4 X10*3/uL [facility] Basophils Absolute Auto 0.0 0.0 - 0.2 X10*3/uL [facility] NRBC Abs Auto 0.000 0.0 - 0.012 X10*3/uL [facility] Blood Venous blood specimen / Unknown 09/17/2024 1:32 PM EDT 09/17/2024 3:03 PM EDT us Mehran Garcia MD LAB BLOOD ORDERABL ES Final Result [facility] [address] [place] [address] [phone] * (ABNORMAL) Lipid Panel, Standard (09/17/2024 1:32 PM EDT) Triglycerides 151(H) <150 mg/dL [facility] Comment:Desirable Triglyceri de: less than 150 mg/dLBorderline High Triglyceride 150-199 mg/dLHigh Triglyceride: 200-499 mg/dLVery High Triglyceride: greater than or equal to 5OO mg/dL Cholesterol 154 <200 mg/dL [facility] Comment:Desirable Cholestero l: less than 200 mg/dLBorderline High Cholesterol: 200-239 mg/dLHigh Cholesterol: greater than 239 mg/dL LDL Cholesterol Calculated 81 <100 mg/dL [facility] Comment:Desirable LDL: less than 100 mg/dLNear Optimal/Above Optimal LDL: 110- 129 mg/dLBorderline High LDL: 130-159 mg/dLHigh LDL: 160-189 mg/dLVery High LDL: greater than or equal to 190 mg/dL HDL Cholesterol 43 >40 mg/dL [facility] Comment:Desirable HDL: great er than 40 mg/dL Note: This HDL assay may give artificially low results in patients with liver disease. Blood Venous blood specimen / Unknown 09/17/2024 1:32 PM EDT 09/17/2024 3:03 PM EDT Mehran Garcia MD LAB BLOOD ORDERABL ES Final Result [facility] [address] [place] [phone] * (ABNORMAL) Comprehensive Metabolic Panel (09/17/2024 1:32 PM EDT) Sodium 143 135 - 145 mmol/L [facility] Potassium 4.0 3.3 - 5.1 mmol/L [facility] Chloride 107 96 - 108 mmol/L [facility] Carbon Dioxide 30(H) 22 - 29 mmol/L [facility] Anion Gap 10(L) 12 - 20 [facility] Urea Nitrogen (BUN) 14 9 - 16 mg/dL [facility] Creatinine, Serum 0.76 0.5 - 1.4 mg/dL [facility] Estimated Glomerular Filt Rate >60 [facility] Comment:Chronic Kidney Disea se: Estimated GFR < 60 mL/min/1.33b9Sdfvde Kidney Disease: Estimated GFR < 15 mL/min/1.73m2 Glucose 78 60 - 115 mg/dL [facility] Calcium 9.0 8.4 - 10.2 mg/dL [facility] Bilirubin, Total 0.1 0.0 - 1.0 mg/dL [facility] Aspartate Amino Transferase 22 5 - 31 U/L [facility] Alanine Aminotransferase 14 0 - 31 U/L [facility] Total Protein 6.7 6.5 - 8.0 g/dL [facility] Albumin Level 3.8 3.5 - 5.0 g/dL [facility] Alkaline Phosphatase 40 39 - 117 U/L [facility] Blood Venous blood specimen / Unknown 09/17/2024 1:32 PM EDT 09/17/2024 3:03 PM EDT Mehran Garcia MD LAB BLOOD ORDERABL ES Final Result [facility] [address] [place] [address] [phone] * HM PAP/HPV (09/16/2024 2:52 PM EDT) Pap Smear 1. NILM 1. NILM HPV Undetected Undetected, Indeterminate , Quantitative, Not Detected Mehran Garcia MD HEALTH MAINTENANCE Final Result * BI Mammogram Screening Tomosynthesis Bilateral (01/12/2024 2:04 PM EDT) Anatomical Region Laterality Modality Breast Bilateral Mammography 01/12/2024 2:04 PM EDT Narrative 01/22/2024 7:43 PM EST [facility] [address] [place] [address] Mammography Report Signed Patient: Chantell Hairston MR#: [id number] : 1975 Acct:[id number] Age/Sex: 48 / F ADM Date: 01/12/24 Loc: HO.MAMMO Attending Dr: Mehran Garcia MD Ordering Physician: Mehran Calloway MD Res ults: 1Negative Date of Service: 01/12/24 Follow Up: 1 Year From Orig inal Mammogram Procedure(s): MM tomosynthesis screening BI Accession Number(s): [id number] cc: Mehran Calloway MD EXAMINATION: MM SCREENING [...] 01/22/24 194 DD/ 1404 TD/TT: 01/12/24 1418 Chairman And Ceo: Procedure Note Donotuseinterpreter, Image - [facility] [address] [place], [place] [address] Mammography Report Signed Patient: Chantell Hairston [facility]#: [id number] : 1975Acct:[id number] Age/Sex: 48 / FADM Date: 01/12/24 Loc: MAMMO Attending Dr: Mehran Garcia MD Ordering Physician: Mehran Calloway ults: 1Negative Date of Service: 01/12/24Follow Up: 1 Year From Orig inal Mammogram Procedure(s): MM tomosynthesis screening BI Accession Number(s): [id number] cc: Mehran Calloway MD EXAMINATION: MM SCREENING [...] 01/22/24 194 DD/ 1404 TD/TT: 01/12/24 1418 Chairman And Ceo: Mehran Garcia MD [facility] PROCEDURES Edited Result - Final * HEPATITIS C AB W/REFL TO HCV RNA, QN, PCR (10/17/2019 9:05 AM EDT) HEPATITIS C ANTIBODY NON-REACT TAD NON-REACT TAD [facility] INDEX 0.01 <1.00 [facility] Comment: HCV antibody was non-reactive. There is no laboratory evidence of HCV infection. In most cases, no further action is required. However, if recent HCV exposure is suspected, a test for HCV RNA (test code 10469) is suggested. For additional information please refer to http://education.Athos/faq/WAR47h9 (This link is being provided for informational/ educational purposes only.) HEPATITIS C ANTIBODY NON-REACT TAD NON-REACT TAD [facility] INDEX 0.01 <1.00 [facility] Comment: HCV antibody was non-reactive. There is no laboratory evidence of HCV infection. In most cases, no further action is required. However, if recent HCV exposure is suspected, a test for HCV RNA (test code 60829) is suggested. For additional information please refer to http://[employer].Athos/faq/IQF78q0 (This link is being provided for informational/ educational purposes only.) 10/17/2019 9:05 AM EDT us Mehran Garcia MD HISTORICAL/NON ORD ERABLE LABS Final Result [facility] [address] [place] [address], * HIV 1/2 ANTIGEN/ANTIBODY,FOURTH GENERATION W/RFL (10/17/2019 9:05 AM EDT) HIV-1/2 ANTIGEN AND ANTIBODIES, 4TH GENERATION W/ REFLEX NON-REACT TAD NON-REACT TAD [facility] Comment: HIV-1 antigen and HIV-1/HIV-2 [...] purpose. For additional information please refer to http://[employer].Athos/faq/PBC166 (This link is being provided for informational/ educational purposes only.) The performance of this assay has not been clinically validated in patients less than 2 years old. 10/17/2019 9:05 AM EDT us Mehran Garcia MD LAB BLOOD ORDERABL ES Final Result [facility] [address] [place] [address], from Last 3 Months or Most Recently Relevant to Health Maintenance [place] [address] [place] [address] Medication Review [facility] 3 Care Teams Gathering Worker Relationship Specialty Start Date End Date Mehran Calloway MD [address] [place] [phone] PCP - General Internal Medicine 06/10/19
== END 2024-09-26 13:20 | disposition home or self-care (01) ==
LOC: HO.HBS 13:08
PROVIDERS: PCP Internal Medicine; Visit Provider Physician Assistant Surgical
DX: E66.9 Obesity, unspecified (principal); Z68.32 Body mass index [BMI] 32.0-32.9, adult; Z90.3 Acquired absence of stomach [part of]; Z98.84 Bariatric surgery status
CPT/HCPCS: 98014

== ENCOUNTER 2024-12-09 12:25 | Outpatient (REF) | payer OTHER, SELFPAY ==
--- OUTSIDE RECORDS SUMMARY | 2024-12-09 13:38 | XMS_ITS | Encounter Summary ---
Author Organization [employer] Address [address] [facility] 7 [place] [address] Care Team Providers Care Family Practice Md Name Role Phone Mehran Calloway MD Primary Care Prov ider Encounter Details Date Type Department Care Team ([facility] st Contact Info) Description 09/18/2023 Orders Only [facility] [address] [place], [place] [phone] Mehran Calloway MD [address] [place] [address] Social History Tobacco Use Types Packs/Day Years [...] Upcoming Encounters Date Type Department Care Team ([facility] st Contact Info) Description 12/23/2024 11:15 AM EDT Telemedicine [facility] [address] [place] [address] Mehran Calloway MD [address] [place] [address] documented as of this encounter Visit Diagnoses Not on filedocumented in this encounter Additional Health Concerns Assessment Noted Time PHQ-9 Depression Total Score: 0 05/25/19 24 3:03 PM EDT documented as of this encounter Care Teams Family Practice Md Relationship Specialty Start Date End Date Mehran Calloway MD [address] [place] [address] PCP - General Internal Medicine 06/10/19 documented as of this encounter
--- OUTSIDE RECORDS SUMMARY | 2024-12-09 13:38 | XMS_ITS | Encounter Summary ---
Author Organization [employer] Address [address] [place] [address] [place] [address] Care Team Providers Care Pet Ambassador Name Role Phone Mehran Calloway MD Primary Care Prov ider Reason for Visit * Reason Comments Med Refill Encounter Details Date Type Department Care Team ([facility] Contact Info) Description 11/04/2022 Refill [facility] [address] [place], [place] [phone] Mehran Calloway MD [address] [place] [address] Acquired hypothyroidism Social History Tobacco Use Types [...] Upcoming Encounters Date Type Department Care Team ([facility] Contact Info) Description 12/23/2024 11:15 AM EDT Telemedicine [facility] [address] [place], [place] [phone] Mehran Calloway MD [address] [place] [address] documented as of this encounter Visit Diagnoses Diagnosis Acquired hypothyroidism Unspecified hypothyroidism documented in this encounter Additional Health Concerns Assessment Noted Time PHQ-9 Depression Total Score: 0 05/31/19 23 3:12 PM EDT documented as of this encounter Care Teams Pet Ambassador Relationship Specialty Start Date End Date Chao Mehran Garcia MD [address] [place] [address] PCP - General Internal Medicine 06/10/19 documented as of this encounter
--- OUTSIDE RECORDS SUMMARY | 2024-12-09 13:38 | XMS_ITS | Encounter Summary ---
Author Organization [employer] Address [address] [place] [address] Care Team Providers Care Conveyor Monitor Name Role Phone Ida Lang MD Primary Care Provider Unavail able Encounter Details Date Type Department Care Team (Latest Contact Info) Description 08/06/2024 Lab Requisition [facility] - Main Lab [address] [place] [address] Rasheed Pool MD [address] [address] Encounter for gynecological examination (general) (routine) without abnormal findings Social History Tobacco Use Types Packs/Day Years Used Date Smoking Tobacco: Never Assessed Comments Unknown Sex and Gender Information Value Date Recorded Sex Assigned at Not on file Legal Sex Female 2:36 PM EST Gender Identity Not on file Sexual Orientation Not on file documented as of this encounter Plan of Treatment Not on file documented as of this encounter Procedures Procedure Name Priority Date/Time Associated Diagnosis [...] gynecological examination (general) (routine) without abnormal findings documented in this encounter Results * HPV with reflex genotype (08/02/2024 12:00 AM EDT) HPV Negative Negative LAB MICROBIOLOGY METHOD 08/06/2024 12:57 PM EDT [facility] Brushing/Spatula Cervix uteri structure / Unknown 08/02/2024 08/06/2024 7:19 AM EDT us Rasheed Pool MD LAB MOLECULAR DIAGNOSTICS ORDE RABJUSTINE Final Result Performing Organization Address [facility]/ZIP Co de Phone Number [facility] [address] [place] [address], [place] [phone] * Chlamydia trachomatis and neisseria gonorrhoeae by tma, thinprep (08/02/2024 12:00 AM EDT) N. gonorrhoeae, RNA Probe Negative Negative LAB MICROBIOLOGY METHOD 08/06/2024 12:24 PM EDT [facility] Chlamydia, RNA Probe Negative Negative LAB MICROBIOLOGY METHOD 08/06/2024 12:24 PM EDT [facility] Brushing/Spatula Cervix uteri structure / Unknown 08/02/2024 08/06/2024 7:19 AM EDT us Rasheed Pool MD LAB CYTOLOGY ORDERABLES Final Result Performing Organization Address [facility]/ZIP Co de Phone Number [facility] [address] [place] [address], [place] [phone] * Pap smear (08/02/2024 12:00 AM EDT) Interpretation Negative for intraepithelial lesion or malignancy 08/06/2024 4:38 PM EDT [facility] Clinical Information IUD 08/06/2024 4:38 PM EDT [facility] General Categorization Negative 08/06/2024 4:38 PM EDT [facility] Other Findings Shift in kiran suggestive of bacterial vaginosis 08/06/2024 4:38 PM EDT [facility] Specimen Adequacy Satisfactory for evaluation, endocervical/cosby sformation zone component present 08/06/2024 4:38 PM EDT [facility] Pap Methodology Liquid Based Pap Test 08/06/2024 4:38 PM EDT [facility] Disclaimer Note: This pap test could not be imaged utilizing the [employer] Imaging System and required a manual review. The Pap test is a screening test which carries an inherent false negative rate. These test results should be correlated with the patient's clinical findings and history. This Pap test was processed using an automated screening system. Technical cytopathology services provided by [facility], at [address] [place] [phone] (CLIA # [id number]/Benson Cervantes MD, Creative Services Writer.) 08/06/2024 4:38 PM EDT [facility] Console Pap Interpretation Reported 08/06/2024 4:38 PM EDT [facility] Brushing/Spatula Cervix uteri structure / Unknown 08/02/2024 08/06/2024 7:19 AM EDT us Rasheed Pool MD LAB CYTOLOGY ORDERABLES Final Result [facility] [address] [place] [address], documented in this encounter Visit Diagnoses Diagnosis Encounter for gynecological examination (general) (routine) without abnormal findings documented in this encounter Care Teams Conveyor Monitor Relationship Specialty Start Date End Date Ida Lang MD PCP - General Internal Medicine 11/20/17 documented as of this encounter
--- OUTSIDE RECORDS SUMMARY | 2024-12-09 13:38 | XMS_ITS | Encounter Summary ---
Author Organization [facility] [employer] Address [address] [place] [address] 7 [place] [address] Care Team Providers Care Tipple Boss Name Role Phone Mehran Calloway MD Primary Care Prov ider Reason for Visit * Reason Onset Date Comments Hospital Follow-up 07/14/2023 Encounter Details Date Type Department Care Team ([facility] st Contact Info) Description 07/14/2023 Telephone [facility] [address] [place], [place] [phone] Mehran Calloway MD [address] [place] [address] Hospital Follow-up Social History Tobacco Use Types [...] is your housing situation today? I have anastasiiayousuf nichols 12/26/[address] you [...] from pt requesting a HDF appt. Hospital: [facility] Date of admission: 07/09/23 Discharge date: 07/13/23 Diagnosed: appendix removal Please contact pt at [phone] documented in this encounter Plan of Treatment Upcoming Encounters Date Type Department Care Team (Late st Contact Info) Description 12/23/2024 11:15 AM EDT Telemedicine [facility] [address] [place] [address] Mehran Calloway MD [address] [place] [address] documented as of this encounter Visit Diagnoses Not on filedocumented in this encounter Additional Health Concerns Assessment Noted Time PHQ-9 Depression Total Score: 0 05/25/19 24 3:03 PM EDT documented as of this encounter Care Teams Tipple Boss Relationship Specialty Start Date End Date Mehran Calloway MD [address] [place] [address] PCP - General Internal Medicine 06/10/19 documented as of this encounter
--- OUTSIDE RECORDS SUMMARY | 2024-12-09 13:38 | XMS_ITS | Clinical Summary ---
Author Organization [employer] Address [address] [facility] 7t [place] [address] Care Team Providers Care Animal Attendant Name Role Phone Mehran Calloway MD Primary [...] tablet by mouth in the morning. Active oxybutynin XL (Ditropan XL) 5 MG 24 hr tablet Take 1 tablet (5 mg) by mouth Once per day. Do not crush, chew, or split. 90 tablet 3 5 09/18/19 26 Active linaCLOtide (Linzess) 145 MCG capsule Take 1 capsule (145 mcg) by mouth before breakfast. Do not crush or chew. 90 capsule 3 5 09/18/19 26 Active ferrous sulfate 325 (65 Fe) MG tabletIndications:I juanpablo deficiency anemia secondary to inadequate dietary iron intake Take 1 tablet (325 mg) by mouth with breakfast. 90 tablet 1 5 Active levothyroxine (Synthroid, Levoxyl) 75 MCG tabletIndications:A cquired hypothyroidism TAKE 1 TABLET BY MOUTH EVERY DAY 90 tablet 1 5 Active Active Problems Problem Noted Date Diagnosed [...] 6 weeks, will follow up on october 24. Assessment & Plan (05/30/2022 4:30 PM EDT): [...] Encounters Date Type Department Care Team Description 10/31/2024 Refill [facility] [address] [place] [address] Mehran Calloway MD Acquired hypothyroidism 09/23/2024 Results Follow-Up [facility] [address] [place] [address] Mehran Calloway MD TSH W/Reflex to FT4, CBC auto differential, Comprehensive Metabolic Panel, Lipid Panel, Standard 09/17/2024 1:00 PM EDT Office Visit [facility] [address] [place] [address] Mehran Calloway MD Acquired hypothyroidism (Primary Dx); Overweight (BMI 25.0-29.9); Constipation, unspecified constipation type; Mixed stress and urge urinary incontinence 09/17/2024 Travel 09/16/2024 Telephone [facility] & PEDS [address] [place] [address] Mehran Calloway MD Chart Prep 09/09/2024 Patient Outreach [facility] MEDICINE [address] [place] [address] Mehran Calloway MD Pre-visit Planning (Pre visit [...] 09/17/2024 1:09 PM EDT Plan of Treatment Upcoming Encounters Date Type Department Care Team (Late st Contact Info) Description 12/23/2024 11:15 AM EDT Telemedicine [facility] PEDS [address] [place] [address] Mehran Calloway MD [address] [place] [address] Health Maintenance Due Date Last Done Comments [...] Free T4 0.98 0.32 - 4.0 uIU/mL [facility] Blood Venous blood specimen / Unknown 09/17/2024 1:32 PM EDT 09/17/2024 3:03 PM EDT us Mehran Garcia MD LAB BLOOD ORDERABL ES Final Result [facility] [address] [place] [phone] * (ABNORMAL) CBC auto differential (09/17/2024 1:32 PM EDT) White Blood Count 7.1 4.8 - 10.8 X10*3/uL [facility] Red Blood Count 3.70(L) 4.20 - 5.50 X10*6/uL [facility] Hemoglobin 10.4(L) 12.0 - 16.0 g/dl [facility] Hematocrit 32.0(L) 37.0 - 47.0 % [facility] Mean Corpuscular Volume 86.5 80.0 - 98.0 fL [facility] Mean Corpuscular Hemoglobin 28.1 27.0 - 33.0 pg [facility] Mean Corpuscular HGB Conc 32.5 31.0 - 35.0 g/dl [facility] Red Cell Distribution Width 13.0 11.0 - 16.0 % [facility] Platelet Count 211 160 - 400 X10*3/uL [facility] Mean Platelet Volume 11.0 9.4 - 12.3 fL [facility] Neutrophils Percent Auto 51.1 45 - 73 % [facility] Imm Gran Pct Auto 0.3 0.0 - 0.4 % [facility] Lymphocytes Percent Auto 37.9 20 - 40 % [facility] Monocytes Percent Auto 7.6 2 - 11 % [facility] Eosinophils Percent Auto 2.5 0 - 4 % [facility] Basophils Percent Auto 0.6 0 - 2 % [facility] NRBC Pct Auto 0.0 0.0 - 0.2 /100WBC [facility] Neutrophils Absolute Auto 3.6 2.0 - 8.3 x10*3/uL [facility] Imm Gran Abs Auto 0.02 0.00 - 0.03 X10*3/uL [facility] Lymphocytes Absolute Auto 2.7 1.2 - 4.9 X10*3/uL [facility] Monocytes Absolute Auto 0.5 0.1 - 1.2 X10*3/uL [facility] Eosinophils Absolute Auto 0.2 0.0 - 0.4 X10*3/uL [facility] Basophils Absolute Auto 0.0 0.0 - 0.2 X10*3/uL [facility] NRBC Abs Auto 0.000 0.0 - 0.012 X10*3/uL [facility] Blood Venous blood specimen / Unknown 09/17/2024 1:32 PM EDT 09/17/2024 3:03 PM EDT us Mehran Garcia MD LAB BLOOD ORDERABL ES Final Result Performing Organization Address [facility]/ZIP Co de Phone Number [facility] [address] [place] [phone] * (ABNORMAL) Lipid Panel, Standard (09/17/2024 1:32 PM EDT) Triglycerides 151(H) <150 mg/dL [facility] Comment:Desirable Triglyceri de: less than 150 mg/dLBorderline High Triglyceride 150-199 mg/dLHigh Triglyceride: 200-499 mg/dLVery High Triglyceride: greater than or equal to 5OO mg/dL Cholesterol 154 <200 mg/dL [facility] Comment:Desirable Cholestero l: less than 200 mg/dLBorderline High Cholesterol: 200-239 mg/dLHigh Cholesterol: greater than 239 mg/dL LDL Cholesterol Calculated 81 <100 mg/dL [facility] Comment:Desirable LDL: less than 100 mg/dLNear Optimal/Above Optimal LDL: 110- 129 mg/dLBorderline High LDL: 130-159 mg/dLHigh LDL: 160-189 mg/dLVery High LDL: greater than or equal to 190 mg/dL HDL Cholesterol 43 >40 mg/dL [facility] Comment:Desirable HDL: great er than 40 mg/dL Note: This HDL assay may give artificially low results in patients with liver disease. Blood Venous blood specimen / Unknown 09/17/2024 1:32 PM EDT 09/17/2024 3:03 PM EDT Mehran Garcia MD LAB BLOOD ORDERABL ES Final Result Performing Organization Address City/[facility]/ZIP Co de Phone Number [facility] [address] [place] [phone] [phone] * (ABNORMAL) Comprehensive Metabolic Panel (09/17/2024 1:32 PM EDT) Sodium 143 135 - 145 mmol/L [facility] Potassium 4.0 3.3 - 5.1 mmol/L [facility] Chloride 107 96 - 108 mmol/L [facility] Carbon Dioxide 30(H) 22 - 29 mmol/L [facility] Anion Gap 10(L) 12 - 20 [facility] Urea Nitrogen (BUN) 14 9 - 16 mg/dL [facility] Creatinine, Serum 0.76 0.5 - 1.4 mg/dL [facility] Estimated Glomerular Filt Rate >60 [facility] Comment:Chronic Kidney Disea se: Estimated GFR < 60 mL/min/1.69z8Porbom Kidney Disease: Estimated GFR < 15 mL/min/1.73m2 Glucose 78 60 - 115 mg/dL [facility] Calcium 9.0 8.4 - 10.2 mg/dL [facility] Bilirubin, Total 0.1 0.0 - 1.0 mg/dL [facility] Aspartate Amino Transferase 22 5 - 31 U/L [facility] Alanine Aminotransferase 14 0 - 31 U/L [facility] Total Protein 6.7 6.5 - 8.0 g/dL [facility] Albumin Level 3.8 3.5 - 5.0 g/dL [facility] Alkaline Phosphatase 40 39 - 117 U/L [facility] Blood Venous blood specimen / Unknown 09/17/2024 1:32 PM EDT 09/17/2024 3:03 PM EDT Mehran Garcia MD LAB BLOOD ORDERABL ES Final Result [facility] [address] [place] [phone] * HM PAP/HPV (09/16/2024 2:52 PM EDT) Pap Smear 1. NILM 1. NILM HPV Undetected Undetected, Indeterminate , Quantitative, Not Detected Mehran Garcia MD HEALTH MAINTENANCE Final Result * BI Mammogram Screening Tomosynthesis Bilateral (01/12/2024 2:04 PM EDT) Anatomical Region Laterality Modality Breast Bilateral Mammography 01/12/2024 2:04 PM EDT Narrative 01/22/2024 7:43 PM EST [address] [place] [address] Mammography Report Signed Patient: Chantell Hairston MR#: [id number] : 1975 Acct:[id number] Age/Sex: 48 / F ADM Date: 01/12/24 Loc: HO.MAMMO Attending Dr: Mehran Garcia MD Ordering Physician: Mehran Calloway MD Res ults: 1Negative Date of Service: 01/12/24 Follow Up: 1 Year From Orig inal Mammogram Procedure(s): MM tomosynthesis screening BI Accession Number(s): [id number] cc: Mehran Calloway MD EXAMINATION: MM SCREENING [...] signed by Pastora Ho DO in OV> 01/22/241940 DD/ 1404 TD/TT: 01/12/24 1418 Cloth Shrinking Supervisor: Procedure Note Donotuseinterpreter, Image - 01/22/[address] [place] [address] Mammography Report Signed Patient: Chantell Hairston MMR#: [id number] : 1975Acct:[id number] Age/Sex: 48 / FADM Date: 01/12/24 Loc: HO.MAMMO Attending Dr: Mehran Garcia MD Ordering Physician: Mehran Calloway ults: 1Negative Date of Service: 01/12/24Follow Up: 1 Year From Orig inal Mammogram Procedure(s): MM tomosynthesis screening BI Accession Number(s): [id number] cc: Mehran Calloway MD EXAMINATION: MM SCREENING [...] 01/22/24 1941 DD/ 1404 TD/TT: 01/12/24 1418 Cloth Shrinking Supervisor: Mehran Garcia MD IM BI PROCEDURES Edited Result - Final * HEPATITIS C AB W/REFL TO HCV RNA, QN, PCR (10/17/2019 9:05 AM EDT) HEPATITIS C ANTIBODY NON-REACT TAD NON-REACT TAD [facility] INDEX 0.01 <1.00 [facility] Comment: HCV antibody was non-reactive. There is no laboratory evidence of HCV infection. In most cases, no further action is required. However, if recent HCV exposure is suspected, a test for HCV RNA (test code 51477) is suggested. For additional information please refer to http://Cogo/faq/YKF99e9 (This link is being provided for informational/ educational purposes only.) HEPATITIS C ANTIBODY NON-REACT TAD NON-REACT TAD [facility] INDEX 0.01 <1.00 [facility] Comment: HCV antibody was non-reactive. There is no laboratory evidence of HCV infection. In most cases, no further action is required. However, if recent HCV exposure is suspected, a test for HCV RNA (test code 95265) is suggested. For additional information please refer to http://Cogo/faq/SAU82f8 (This link is being provided for informational/ educational purposes only.) 10/17/2019 9:05 AM EDT Mehran Garcia MD HISTORICAL/NON ORD ERABLE LABS Final Result [facility] [address] * HIV 1/2 ANTIGEN/ANTIBODY,FOURTH GENERATION W/RFL (10/17/2019 9:05 AM EDT) HIV-1/2 ANTIGEN AND ANTIBODIES, 4TH GENERATION W/ REFLEX NON-REACT TAD NON-REACT TAD [facility] Comment: HIV-1 antigen and HIV-1/HIV-2 [...] purpose. For additional information please refer to http://NewRiver[employer]/faq/UIM679 (This link is being provided for informational/ educational purposes only.) The performance of this assay has not been clinically validated in patients less than 2 years old. 10/17/2019 9:05 AM EDT Mehran Garcia MD LAB BLOOD ORDERABL ES Final Result Performing Organization Address City/State/[facility] [[email or web address]] Co de Phone Number [facility] [address] from Last 3 Months or Most Recently Relevant to Health Maintenance Insurance [employer] 3 Care Teams Animal Attendant Relationship Specialty Start Date End Date Mehran Calloway MD [address] [place] [address] PCP - General Internal Medicine 06/10/19
--- OUTSIDE RECORDS SUMMARY | 2024-12-09 13:38 | XMS_ITS | Encounter Summary ---
Author Organization [employer] Address [address] [place] [address] [place] [address] Care Team Providers Care Chief Recordist Name Role Phone Mehran Calloway MD Primary Care Prov ider Reason for Visit * Reason Comments Med Refill Encounter Details Date Type Department Care Team ([facility] Contact Info) Description 09/30/2022 Refill [facility] [address] [place], [place] [phone] Mehran Calloway MD [address] [place] [address] Acquired hypothyroidism Social History Tobacco Use Types [...] Upcoming Encounters Date Type Department Care Team ([facility] Contact Info) Description 12/23/2024 11:15 AM EDT Telemedicine [facility] [address] [place] [address] Mehran Calloway MD [address] [place] [address] documented as of this encounter Visit Diagnoses Diagnosis Acquired hypothyroidism Unspecified hypothyroidism documented in this encounter Additional Health Concerns Assessment Noted Time PHQ-9 Depression Total Score: 0 05/31/19 23 3:12 PM EDT documented as of this encounter Care Teams Chief Recordist Relationship Specialty Start Date End Date Chao Mehran Garcia MD [address] [place] [address] PCP - General Internal Medicine 06/10/19 documented as of this encounter
--- OUTSIDE RECORDS SUMMARY | 2024-12-09 13:38 | XMS_ITS | Clinical Summary ---
Author Organization [address] Address [address] [place] [address] Phone Care Team Providers Care Can Reconditioner Name Role Phone Ida Lang MD Primary [...] Health Maintenance Due Date Last Done Comments Colorectal Cancer Screening: Colonoscopy 1975 DTaP,Tdap,and Td Vaccines (1 - Tdap) 1995 Hepatitis B Vaccines (1 of 3 - 19+ 3-dose series) 1995 Breast Cancer Screening 01/06/2020 01/05/2018 HIV Screening 02/09/2022 Hepatitis C Screening 02/09/2022 Social Influencers of Health Screening 02/09/2022 Depression Screening 03/13/2024 COVID-19 Vaccine (1 - 2023-2 5 season) 2024 Influenza Vaccine (#1) 2024 Cervical Cancer Screening: HPV 08/02/2029 08/02/2024 RSV Immunization Adult Patie nts (1 - 1-dose 75+ series) 2051 HIB Vaccines Aged Out No longer eligi [...] Procedure Name Priority Date/Time Associated Diagnosis Comments HPV WITH REFLEX GENOTYPE Routine 08/02/2024 12:00 AM EDT Encounter for gynecological examination (general) (routine) without abnormal findings [facility] SCREENING DIGITAL Routine 01/05/2018 3:56 PM EDT Encounter for screening mammogram for malignant neoplasm of breast from Last 3 Months or Most Recently Relevant to Health Maintenance Results * HPV with reflex genotype (08/02/2024 12:00 AM EDT) HPV Negative Negative LAB MICROBIOLOGY METHOD 08/06/2024 12:57 PM EDT [facility] Brushing/Spatula Cervix uteri structure / Unknown 08/02/2024 08/06/2024 7:19 AM EDT Rasheed Pool MD LAB MOLECULAR DIAGNOSTICS ALEJANDRA TREJO Final Result [facility] [address] [place] [address], * [facility] SCREENING DIGITAL (01/05/2018 3:56 PM EDT) Anatomical Region Laterality Modality Mammography 01/05/2018 1:59 PM EDT Narrative 01/05/2018 3:56 PM EDT [facility] Diagnostic Imaging Department [address] [place] [address] Patient: CHANTELL TAVARES /Age/Sex: 1975 - 42 - F Unit#: [id number] Location/Status: SPDIMAM/REG CLI Mnemonic/Ordering Site: [facility] Ordering Physician: IDA LANG MD [facility] Screening Digital - 01/05/18 - 1458 EXAM: [facility] Screening Digital EXAM DATE AND TIME: 01/05/2018 2:59 PM HISTORY: Screening. COMPARISON: 08/18/16 TECHNIQUE: CC and MLO views of both breasts were obtained using full field digital mammography. Bilateral digital breast tomosynthesis was performed in the MLO projection. Computer aided detection with the [employer]acart 7.2-H was employed. TISSUE DENSITY: b. There [...] Routine screening mammogram BILATERAL in 1 year. [address], [address] 3342F, 7025F Dictating Physician: FLETCHER LUNA MD Electronically Signed by: FLETCHER LUNA MD Dic Date/Time: 01/05/181554 Sign date/Time: 01/05/181555 Procedure Note [place] Luna MD - 03/01/2022 [facility] Diagnostic Imaging Department [address] [place] [address] Patient: CHANTELL TAVARES /Age/Sex: 1975 - 42 - F Unit#: [id number] Location/Status: SPDIMAM/REG CLI Mnemonic/Ordering Site: [facility] Ordering Physician: IDA LANG MD [facility] Screening Digital - 01/05/18 - 1458 EXAM: [facility] Screening Digital EXAM DATE AND TIME: 01/05/2018 2:59 PM HISTORY: Screening. COMPARISON: 08/18/16 TECHNIQUE: CC and MLO views of both breasts were obtained using fullfield digital mammography. Bilateral digital breast tomosynthesis was performedin the MLO projection. Computer aided detection with the Instacart 7.2-Hwas employed. TISSUE DENSITY: b. There are scattered [...] Routine screening mammogram BILATERAL in 1 year. [address], [address] 3342F, 7025F Dictating Physician: FLETCHER LUNA MD Electronically Signed by: FLETCHER LUNA MD Dic Date/Time: 01/05/18 1555 Sign date/Time: 01/05/18 1556 Ida Lang MD IMG BI PROCEDURES Final Result from Last 3 Months or Most Recently Relevant to Health Maintenance Insurance [facility] Care Teams Can Reconditioner Relationship Specialty Start Date End Date Ida Lang MD PCP - General Internal Medicine 11/20/17
[2024-12-09 14:44] LABS: Iron 113 mcg/dL (30-160); Percent Iron Saturation 49 % (15-50); Total Iron Binding Capacity 229 mcg/dL (228-428); Unsaturated Iron Binding 116 ug/dL
[2024-12-09 15:10] LABS: Folate > 20.0 ng/mL (> or = 4.0); Vitamin B12 1293 pg/mL (200-900)
== END 2024-12-09 12:26 | disposition home or self-care (01) ==
LOC: HO.CHCLDS 12:25
PROVIDERS: Visit Provider Internal Medicine
DX: D50.8 Other iron deficiency anemias (principal)
CPT/HCPCS: 36415; 82607; 82746; 83540

== ENCOUNTER 2025-01-08 12:49 | Outpatient (REF) | payer OTHER, SELFPAY ==
--- OUTSIDE RECORDS SUMMARY | 2025-01-08 16:09 | XMS_ITS | Clinical Summary ---
Author Organization [employer] Address [address] [facility] 7t [place] [address] Care Team Providers Care Steam Cleaner Name Role Phone Mehran Calloway MD Primary [...] Active Problems Problem Noted Date Diagnosed Date Iron deficiency anemia due to chronic blood loss 12/25/2024 Mixed stress and urge urinary incontinence 09/17 [...] years Acquired hypothyroidism 05/30/2022 Assessment & Plan (12/25/2024 4:32 PM EDT): Clinically and chemically euthyroid, no changes will be made, follow up in 4 months Assessment & Plan (09/17/2024 1:29 PM EDT): [...] Encounters Date Type Department Care Team Description 12/25/2024 3:00 PM EDT Telemedicine [facility] MED & PEDS [address] [place] [address] Mehran Calloway MD Screening-pulmonary TB (Primary Dx); Acquired hypothyroidism; Iron deficiency anemia due to chronic blood loss 12/25/2024 Travel 12/24/2024 Telephone [facility] [address] [place] [address] Mehran Calloway MD chart prep 12/24/2024 Telephone [facility] [address] [place] [address] Mehran Calloway MD no show 12/24/2024 Travel 12/23/2024 Travel 12/20/2024 Telephone [facility] MED & PEDS [address] [place] [address] Mehran Calloway MD chart prep 10/31/2024 Refill [facility] [address] [place] [address] Mehran Calloway MD Acquired hypothyroidism from Last 3 Months Immunizations Immunization Administration [...] Date Recorded Patient Health Questionnaire-9 Score 0 12/25/2024 Patient Health Questionnaire-9 Score 0 12/25/2024 Last PHQ-9: Questionnaire Data Not on file 1 Housing Stability Answer Date Recorded What is your housing situation today? I have anastasiiayousuf nichols 12/25/[address] you li ve. Do you have problems with any of the following? None of the above 12/25/2024 Food Insecurity Answer Date Recorded Within the past 12 months, y ou worried that your food would run out before you got money to buy more: Never True 12/25/2024 Within the past 12 months,th e food you bought just didn't last and you didn't have enough money to get more: Never True Transportation Answer Date Recorded In the past 12 months, has l ack of transportation kept you from medical appts, meetings, work or from getting things needed for daily living? No 12/25/2024 Utilities Answer Date Recorded In the past 12 months, has t he electric, gas, oil or water company threatened to shut off services in your home? No 12/25/2024 Depression Answer Date Recorded Patient Health Questionnaire-2 Score 0 12/25/2024 Internet Access Answer Date Recorded Internet Access Q1 Yes 12/25/2024 Internet Access Q2 Not on file 12/25/2024 Comments Unknown Sex and Gender Information Value [...] 1975 FIT 1975 FOBT 1975 Sigmoidoscopy 1975 Family Planning (PISQ) 1991 Tobacco Screening 07/20/2024 07/21/2023 Influenza Vaccine (#1) 2024 , 01/15/2023, 11/21/2021, Additional history exists Colonoscopy 08/12/2025 Colorectal Cancer Screening 08/12/2025 Alcohol/Substance Use Screening 12/25/2025 12/25/2024 Depression Screening 12/25/2025 12/25/2024, 12/26/19 25 Disability Screening 12/25/2025 12/25/2024 SDOH Screening 12/25/2025 12/25/2024 Mammogram 01/11/2026 01/12/2024, 12/12, 12/28/2021, Additional history [...] Name Priority Date/Time Associated Diagnosis Comments VITAMIN B12/FOLATE, SERUM PANEL Routine 12/09/2024 12:27 PM EDT Iron deficiency anemia secondary to inadequate dietary iron intake IRON AND TOTAL IRON BINDING CAPACITY Routine 12/09/2024 12:27 PM EDT Iron deficiency anemia secondary to inadequate dietary iron intake HM PAP/HPV Routine 09/16/2024 2:52 PM EDT BI MAMMOGRAM SCREENING TOMOSYNTHESIS BILATERAL Routine 01/12/2024 2:04 PM EDT [facility] HISTORICAL HEPATITIS C AB W/REFL TO HCV RNA, QN, PCR Routine 10/17/2019 9:05 AM EDT HIV 1/2 ANTIGEN/ANTIBODY, FOURTH GENERATION W/RFL Routine 10/17/2019 9:05 AM EDT from Last 3 Months or Most Recently Relevant to Health Maintenance Results * (ABNORMAL) Vitamin B12 (Cobalamin) and Folate Panel, Serum (12/09/2024 12:27 PM EDT) Vitamin B12 1,293(H) 200 - 900 pg/mL [facility] Comment:NORMAL 200-900 PG/ML INDETERMINATE 160-199 PG/ML DEFICIENT < 160 PG/ML Folate >20.0 > or = 4.0 ng/mL [facility] Comment:Reference Values:> o r = 4.0 ng/mL< 4.0 ng/mL suggests folate deficiency Methotrexate, aminopterin and folinic acid(leucovorin) are chemotherapeutic agents whose molecularstructures are similar to folate; therefore, the Architectfolate assay cannot be used for patients using these drugs. Blood Venous blood specimen / Unknown 12/09/2024 12:27 PM EDT 12/09/2024 2:07 PM EDT Mehran Garcia MD LAB BLOOD ORDERABL ES Final Result [facility] [address] [place] [address] [phone] * Iron And Total Iron Binding Capacity (12/09/2024 12:27 PM EDT) Iron 113 30 - 160 mcg/dL [facility] Total Iron Binding Capacity 229 228 - 428 mcg/dL [facility] Percent Iron Saturation 49 15 - 50 % [facility] Unsaturated Iron Binding 116 ug/dL [facility] Blood Venous blood specimen / Unknown 12/09/2024 12:27 PM EDT 12/09/2024 2:07 PM EDT Mehran Garcia MD LAB BLOOD ORDERABL ES Final Result [facility] [address] [place] [address] [phone] * HM PAP/HPV (09/16/2024 2:52 PM EDT) Pap Smear 1. NILM 1. NILM HPV Undetected Undetected, Indeterminate , Quantitative, Not Detected Mehran Garcia MD HEALTH MAINTENANCE Final Result * BI Mammogram Screening Tomosynthesis Bilateral (01/12/2024 2:04 PM EDT) Anatomical Region Laterality Modality Breast Bilateral Mammography 01/12/2024 2:04 PM EDT Narrative 01/22/2024 7:43 PM EST [address] [place] [address] Mammography Report Signed Patient: Chantell Hairston MR#: [id number] : 1975 Acct:[id number] Age/Sex: 48 / F ADM Date: 01/12/24 Loc: HO.MAMMO Attending Dr: Mehran Garcia MD Ordering Physician: Mehran Calloway MD Res ults: 1Negative Date of Service: 01/12/24 Follow Up: 1 Year From Orig ina Mammogram Procedure(s): MM tomosynthesis screening BI Accession Number(s): [id number] cc: Mehran Calloway MD EXAMINATION: MM SCREENING [...] 01/22/24 194 DD/ 1404 TD/TT: 01/12/24 1418 Carbon Paper Coating Machine Setter: Procedure Note Donotuseinterpreter, Image - 01/22/2024 [facility] [address] [place] [address] Mammography Report Signed Patient: Chantell Hairston MMR#: [id number] : 1975Acct:[id number] Age/Sex: 48 / FADM Date: 01/12/24 Loc: HO.MAMMO Attending Dr: Mehran Garcia MD Ordering Physician: Mehran Calloway ults: 1Negative Date of Service: 01/12/24Follow Up: 1 Year From Orig inal Mammogram Procedure(s): MM tomosynthesis screening BI Accession Number(s): [id number] cc: Mehran Calloway MD EXAMINATION: MM SCREENING [...] 01/22/24 194 DD/ 1404 TD/TT: 01/12/24 1418 [employer] Paper Coating Machine Setter: Mehran Garcia MD IM BI PROCEDURES Edited Result - Final * HEPATITIS C AB W/REFL TO HCV RNA, QN, PCR (10/17/2019 9:05 AM EDT) HEPATITIS C ANTIBODY NON-REACT TAD NON-REACT TAD [facility] INDEX 0.01 <1.00 [facility] Comment: HCV antibody was non-reactive. There is no laboratory evidence of HCV infection. In most cases, no further action is required. However, if recent HCV exposure is suspected, a test for HCV RNA (test code 87781) is suggested. For additional information please refer to http://EcoLogicLiving.PresseTrends.com/faq/TMC31q4 (This link is being provided for informational/ educational purposes only.) HEPATITIS C ANTIBODY NON-REACT TAD NON-REACT TAD [facility] INDEX 0.01 <1.00 [facility] Comment: HCV antibody was non-reactive. There is no laboratory evidence of HCV infection. In most cases, no further action is required. However, if recent HCV exposure is suspected, a test for HCV RNA (test code 48035) is suggested. For additional information please refer to http://education.BrandWatch Technologies.Feedzai/faq/QOK52m8 (This link is being provided for informational/ educational purposes only.) 10/17/2019 9:05 AM EDT Mehran Garcia MD HISTORICAL/NON ORD ERABLE LABS Final Result Performing Organization Address [facility] de Phone Number [facility] [address] * HIV 1/2 ANTIGEN/ANTIBODY,FOURTH GENERATION W/RFL (10/17/2019 9:05 AM EDT) HIV-1/2 ANTIGEN AND ANTIBODIES, 4TH GENERATION W/ REFLEX NON-REACT TAD NON-REACT TAD [facility] Comment: HIV-1 antigen [...] purpose. For additional information please refer to http://education.PresseTrends.com/faq/JHE239 (This link is being provided for informational/ educational purposes only.) The performance of this assay has not been clinically validated in patients less than 2 years old. 10/17/2019 9:05 AM EDT Mehran Garcia MD LAB BLOOD ORDERABL ES Final Result Performing Organization Address [facility] de Phone Number [facility] [address] from Last 3 Months or Most Recently Relevant to Health Maintenance [facility] Care Teams Steam Cleaner Relationship Specialty Start Date End Date Mehran Calloway MD [address] [place] [phone] PCP - General Internal Medicine 06/10/19
--- OUTSIDE RECORDS SUMMARY | 2025-01-08 16:09 | XMS_ITS | Encounter Summary ---
Author Organization [employer] Address [address] [place] [address] 7 [place] [address] Care Team Providers Care Doper Name Role Phone Mehran Calloway MD Primary Care Prov ider Reason for Visit * Reason Onset Date Comments Hospital Follow-up 07/14/2023 Encounter Details Date Type Department Care Team ([facility] st Contact Info) Description 07/14/2023 Telephone [facility] MED & PEDS [address] [place], [place] [phone] Mehran Calloway MD [address] [place] [address] Hospital Follow-up Social History Tobacco Use Types [...] from pt requesting a HDF appt. Hospital: [facility] Date of admission: 07/09/23 Discharge date: 07/13/23 Diagnosed: appendix removal Please contact pt at [phone] documented in this encounter Plan of Treatment Not on file documented as of this encounter Visit Diagnoses Not on filedocumented in this encounter Additional Health Concerns Assessment Noted Time PHQ-9 Depression Total Score: 0 05/25/19 24 3:03 PM EDT documented as of this encounter Care Teams Doper Relationship Specialty Start Date End Date Mehran Calloway MD [address] [place] [phone] PCP - General Internal Medicine 06/10/19 documented as of this encounter
--- OUTSIDE RECORDS SUMMARY | 2025-01-08 16:09 | XMS_ITS | Encounter Summary ---
Author Organization [employer] Address [address] [place] [address] [place] [address] Care Team Providers Care Mixing Machine Operator Name Role Phone Mehran Calloway MD Primary Care Prov ider Reason for Visit * Reason Comments Med Refill Encounter Details Date Type Department Care Team ([facility] st Contact Info) Description 11/04/2022 Refill [facility]EDS [address] [place], [place] [phone] Mehran Calloway MD [address] [place] [address] Acquired hypothyroidism Social History Tobacco Use Types [...] documented as of this encounter Care Teams Mixing Machine Operator Relationship Specialty Start Date End Date ChaoMehran Mejía MD [address] [place] [address] PCP - General Internal Medicine 06/10/19 documented as of this encounter
--- OUTSIDE RECORDS SUMMARY | 2025-01-08 16:09 | XMS_ITS | Encounter Summary ---
Author Organization [employer] Address [address] [facility] 7 [place] [address] Care Team Providers Care Ceramic Plater Name Role Phone Mehran Calloway MD Primary Care Prov ider Encounter Details Date Type Department Care Team ([facility] st Contact Info) Description 09/18/2023 Orders Only [facility] MED & PEDS [address] [place], [place] [phone] Mehran Calloway MD [address] [place] [address] Social History Tobacco Use Types Packs/Day Years [...] documented as of this encounter Care Teams Ceramic Plater Relationship Specialty Start Date End Date Mehran Calloway MD [address] [place] [address] PCP - General Internal Medicine 06/10/19 documented as of this encounter
--- OUTSIDE RECORDS SUMMARY | 2025-01-08 16:09 | XMS_ITS | Encounter Summary ---
Author Organization [employer] Address [address] [place] [address] Care Team Providers Care Pilot Supervisor Name Role Phone Ida Lang MD Primary Care Provider Unavail able Encounter Details Date Type Department Care Team (Latest Contact Info) Description 08/06/2024 Lab Requisition [facility] - Main Lab [address] [place] [address] Rasheed Pool MD [address] [address] Encounter for gynecological examination (general) [...] LAB MICROBIOLOGY METHOD 08/06/2024 12:57 PM EDT [facility] Brushing/Spatula Cervix uteri structure / Unknown 08/02/2024 08/06/2024 7:19 AM EDT us Rasheed Pool MD LAB MOLECULAR DIAGNOSTICS ORDE RABJUSTINE Final Result Performing Organization Address [facility]/ZIP Co de Phone Number [facility] [address] [place] [address], [place] [phone] * Chlamydia trachomatis and neisseria gonorrhoeae by tma, thinprep (08/02/2024 12:00 AM EDT) N. gonorrhoeae, RNA Probe Negative Negative LAB MICROBIOLOGY METHOD 08/06/2024 12:24 PM EDT [facility] Chlamydia, RNA Probe Negative Negative LAB MICROBIOLOGY METHOD 08/06/2024 12:24 PM EDT [facility] Brushing/Spatula Cervix uteri structure / Unknown 08/02/2024 08/06/2024 7:19 AM EDT us Rasheed Pool MD LAB CYTOLOGY ORDERABLES Final Result Performing Organization Address [facility]/ZIP Co de Phone Number [facility] [address] [place] [address], [place] [phone] * Pap smear (08/02/2024 12:00 AM EDT) Interpretation Negative for intraepithelial lesion or malignancy 08/06/2024 4:38 PM EDT [facility] Clinical Information IUD 08/06/2024 4:38 PM EDT [facility] General Categorization Negative 08/06/2024 4:38 PM EDT [facility] Other Findings Shift in kiran suggestive of bacterial vaginosis 08/06/2024 4:38 PM EDT [facility] Specimen Adequacy Satisfactory for evaluation, endocervical/cosby sformation zone component present 08/06/2024 4:38 PM EDT [facility] Pap Methodology Liquid Based Pap Test 08/06/2024 4:38 PM EDT [facility] Disclaimer Note: This pap test could not be imaged utilizing the [employer] Imaging System and required a manual review. The Pap test is a screening test which carries an inherent false negative rate. These test results should be correlated with the patient's clinical findings and history. This Pap test was processed using an automated screening system. Technical cytopathology services provided by [facility], at [address] [place] [address] (CLIA # [id number]/Benson Cervantes MD, Creative Services Manager.) 08/06/2024 4:38 PM EDT [facility] Console Pap Interpretation Reported 08/06/2024 4:38 PM EDT [facility] Brushing/Spatula Cervix uteri structure / Unknown 08/02/2024 08/06/2024 7:19 AM EDT us Rasheed Pool MD LAB CYTOLOGY ORDERABLES Final Result [facility] [address] [place] [address], documented in this encounter Visit Diagnoses Diagnosis Encounter for gynecological examination (general) (routine) without abnormal findings documented in this encounter Care Teams Pilot Supervisor Relationship Specialty Start Date End Date Ida Lang MD PCP - General Internal Medicine 11/20/17 documented as of this encounter
--- OUTSIDE RECORDS SUMMARY | 2025-01-08 16:09 | XMS_ITS | Encounter Summary ---
Author Organization [employer] Address [address] [place] [address] [place] [address] Care Team Providers Care Tower Switch Operator Name Role Phone Mehran Calloway MD Primary Care Prov ider Reason for Visit * Reason Comments Med Refill Encounter Details Date Type Department Care Team ([facility] st Contact Info) Description 09/30/2022 Refill [facility] MED & PEDS [address] [place], [place] [phone] Mehran Calloway MD [address] [place] [address] Acquired hypothyroidism Social History Tobacco Use Types [...] documented as of this encounter Care Teams Tower Switch Operator Relationship Specialty Start Date End Date ChaoMehran Mejía MD [address] [place] [address] PCP - General Internal Medicine 06/10/19 documented as of this encounter
--- OUTSIDE RECORDS SUMMARY | 2025-01-08 16:09 | XMS_ITS | Clinical Summary ---
Author Organization [address] Address [address] [place] [address] Phone Care Team Providers Care Ssis Ssrs Developer Name Role Phone Ida Lang MD Primary [...] gynecological examination (general) (routine) without abnormal findings [facility] SCREENING DIGITAL Routine 01/05/2018 3:56 PM EDT Encounter for screening mammogram for malignant neoplasm of breast from Last 3 Months or Most Recently Relevant to Health Maintenance Results * HPV with reflex genotype (08/02/2024 12:00 AM EDT) HPV Negative Negative LAB MICROBIOLOGY METHOD 08/06/2024 12:[address] [facility] Brushing/Spatula Cervix uteri structure / Unknown 08/02/2024 08/06/2024 7:19 AM EDT Rasheed Pool MD LAB MOLECULAR DIAGNOSTICS ALEJANDRA TREJO Final Result [facility] [address] [place] [address], * [facility] SCREENING DIGITAL (01/05/2018 3:56 PM EDT) Anatomical Region Laterality Modality Mammography 01/05/2018 1:59 PM EDT Narrative 01/05/2018 3:56 PM EDT [facility] Diagnostic Imaging Department [address] [place] [address] Patient: CHANTELL TAVARES /Age/Sex: 1975 - 42 - F Unit#: [id number] Location/Status: SPDIMAM/REG CLI Mnemonic/Ordering Site: [facility] Ordering Physician: IDA LANG MD [facility] Screening Digital - 01/05/18 - 1458 EXAM: [facility] Screening Digital EXAM DATE AND TIME: 01/05/2018 2:59 PM HISTORY: Screening. COMPARISON: 08/18/16 TECHNIQUE: CC and MLO views of both breasts were obtained using full field digital mammography. Bilateral digital breast tomosynthesis was performed in the MLO projection. Computer aided detection with the [employer] Premium 7.2-H was employed. TISSUE DENSITY: b. There [...] Routine screening mammogram BILATERAL in 1 year. [address], [address] 3342F, 7025F Dictating Physician: FLETCHER LUNA MD Electronically Signed by: FLETCHER LUNA MD Dic Date/Time: 01/05/181554 Sign date/Time: 01/05/181555 Procedure Note Fletcher Luna MD - 03/01/2022 [facility] Diagnostic Imaging Department [address] [place] [address] Patient: CHANTELL TAVARES /Age/Sex: 1975 - 42 - F Unit#: [id number] Location/Status: SPDIMAM/REG CLI Mnemonic/Ordering Site: [facility] Ordering Physician: IDA LANG MD [facility] Screening Digital - 01/05/18 - 1458 EXAM: [facility] Screening Digital EXAM DATE AND TIME: 01/05/2018 2:59 PM HISTORY: Screening. COMPARISON: 08/18/16 TECHNIQUE: CC and MLO views of both breasts were obtained using fullfield digital mammography. Bilateral digital breast tomosynthesis was performedin the MLO projection. Computer aided detection with the [employer] Premium 7.2-Hwas employed. TISSUE DENSITY: b. There are [...] Routine screening mammogram BILATERAL in 1 year. [id number], [address] 3342F, 7025F Dictating Physician: FLETCHER LUNA MD Electronically Signed by: FLETCHER LUNA MD Dic Date/Time: 01/05/18 1555 Sign date/Time: 01/05/18 1556 Ida Lang MD IMG BI PROCEDURES Final Result from Last 3 Months or Most Recently Relevant to Health Maintenance Insurance [facility] [employer] Care Teams Ssis Ssrs Developer Relationship Specialty Start Date End Date Ida Lang MD PCP - General Internal Medicine 11/20/17
[2025-01-11 02:47] LABS: TS Negative Control Passed; TS Panel A 0; TS Panel B 0; TS Positive Control Passed; TSpotTB Negative (Negative)
== END 2025-01-08 12:50 | disposition home or self-care (01) ==
LOC: HO.CHCLDS 12:49
PROVIDERS: Visit Provider Internal Medicine
DX: Z11.1 Encounter for screening for respiratory tuberculosis (principal)
CPT/HCPCS: 36415; 86481

== ENCOUNTER 2025-01-17 13:40 | Outpatient (REF) | payer OTHER, SELFPAY ==
--- OUTSIDE RECORDS SUMMARY | 2025-01-17 15:44 | XMS_ITS | Clinical Summary ---
Author Organization [employer] Address [address] [facility] 7t [place] [address] Care Team Providers Care Hotbed Lever Operator Name Role Phone Mehran Calloway MD [...] Team Description 12/25/2024 3:00 PM EDT Telemedicine [facility] [address] [place] [address] Mehran Calloway MD Screening-pulmonary TB (Primary Dx); Acquired hypothyroidism; Iron deficiency anemia due to chronic blood loss 12/25/2024 Travel 12/24/2024 Telephone [facility] [address] [place] [address] Mehran Calloway MD chart prep 12/24/2024 Telephone [facility] [address] [place] [address] Mehran Calloway MD no show 12/24/2024 Travel 12/23/2024 Travel 12/20/2024 Telephone [facility] [address] [place] [address] Mehran Calloway MD chart prep 10/31/2024 Refill [facility] [address] [place] [address] Mehran Calloway MD Acquired hypothyroidism from Last [...] Procedure Name Priority Date/Time Associated Diagnosis Comments T-SPOT(R).TB Routine 01/08/2025 12:46 PM EDT Screening-pulmonar y TB VITAMIN B12/FOLATE, SERUM PANEL Routine 12/09/2024 12:27 [...] Recently Relevant to Health Maintenance Results * T-SPOT??.TB (01/08/2025 12:46 PM EDT) Pathologist [facility] T Spot TB Negative Negative [facility] Comment:A negative test resu lt does not exclude the possibilityof exposure to or infection with Mycobacteriumtuberculosis (M. tuberculosis). Patients with recentexposure to TB infected individuals exhibiting anegative T-SPOT.TB result should be considered forretesting within 6 weeks or if other relevant clinicalsymptoms indicate. Results from T-SPOT.TB testing mustbe used in conjunction with each individual'sepidemiological history, current medical status,and results of other diagnostic evaluations.The T-SPOT.TB test is qualitative and results arereported as positive, borderline, or negative, giventhat the test controls perform as expected. In linewith the Centers for Disease Control and Prevention's2010 recommendation to report quantitative measurementsalongside the qualitative result, the laboratoryprovides spot counts for informational purposes only.The T-SPOT.TB test should not be interpreted as aquantitative test. TS PANEL A 0 [facility] TS PANEL B 0 [facility] Negative Control Passed [facility] Positive Control Passed [facility] Comment:For additional infor mation, please refer tohttp://education.Printi/faq/EVK052(This link is being provided for informational/educational purposes only.)THIS TEST WAS PERFORMED AT:[facility]TOM [id number] [place] [address]KKKWVZZLISET BORGES MD,PHD 01/08/2025 12:4 6 PM EDT 01/08/2025 1:55 PM EDT Mehran Garcia MD LAB BLOOD ORDERABL ES Final Result Performing Organization Address [facility]/ZIP Co de Phone Number [facility] [address] [place] [phone] * (ABNORMAL) Vitamin B12 (Cobalamin) and Folate Panel, Serum (12/09/2024 12:27 PM EDT) Vitamin B12 1,293(H) 200 - 900 pg/mL [facility] Comment:NORMAL 200-900 PG/ML INDETERMINATE 160-199 PG/ML DEFICIENT < 160 PG/ML Folate >20.0 > or = 4.0 ng/mL [facility] Comment:Reference Values:> o r = 4.0 ng/mL< 4.0 ng/mL suggests folate deficiency Methotrexate, aminopterin and folinic acid(leucovorin) are chemotherapeutic agents whose molecularstructures are similar to folate; therefore, the Architectfolate assay cannot be used for patients using these drugs. Blood Venous blood specimen / Unknown 12/09/2024 12:27 PM EDT 12/09/2024 2:07 PM EDT us Mehran Garcia MD LAB BLOOD ORDERABL ES Final Result Performing Organization Address City/[facility]/ZIP Co de Phone Number [facility] [address] [place] [phone] * Iron And Total Iron Binding Capacity (12/09/2024 12:27 PM EDT) Iron 113 30 - 160 mcg/dL [facility] Total Iron Binding Capacity 229 228 - 428 mcg/dL [facility] Percent Iron Saturation 49 15 - 50 % [facility] Unsaturated Iron Binding 116 ug/dL [facility] Blood Venous blood specimen / Unknown 12/09/2024 12:27 PM EDT 12/09/2024 2:07 PM EDT Mehran Garcia MD LAB BLOOD ORDERABL ES Final Result [facility] [address] [place] [address] [phone] * HM PAP/HPV (09/16/2024 2:52 PM EDT) Pap Smear 1. NILM 1. NILM HPV Undetected Undetected, Indeterminate , Quantitative, Not Detected Mehran Garcia MD HEALTH MAINTENANCE Final Result * BI Mammogram Screening Tomosynthesis Bilateral (01/12/2024 2:04 PM EDT) Anatomical Region Laterality Modality Breast Bilateral Mammography 01/12/2024 2:04 PM EDT Narrative 01/22/2024 7:43 PM EST [address] [place] [address] Mammography Report Signed Patient: Chantell Hairston MR#: [id number] : 1975 Acct:[id number] Age/Sex: 48 / F ADM Date: 01/12/24 Loc: HO.MAMMO Attending Dr: Mehran Garcia MD Ordering Physician: Mehran Calloway MD Res ults: 1Negative Date of Service: 01/12/24 Follow Up: 1 Year From Orig ina Mammogram Procedure(s): MM tomosynthesis screening BI Accession Number(s): [id number] cc: Mehran Calloway MD EXAMINATION: MM SCREENING [...] OV> 01/22/241940 DD/ 1404 TD/TT: 01/12/24 1418 Field Service Tech: Procedure Note Donotuseinterpreter, Image - 01/22/2024 [facility] [address] [place], [place] [address] Mammography Report Signed Patient: Chantell Hairston MMR#: [id number] : 1975Acct:[id number] Age/Sex: 48 / FADM Date: 01/12/24 Loc: HO.MAMMO Attending Dr: Mehran Garcia MD Ordering Physician: Mehran Calloway ults: 1Negative Date of Service: 01/12/24Follow Up: 1 Year From Orig ina Mammogram Procedure(s): MM tomosynthesis screening BI Accession Number(s): [id number] cc: Mehran Calloway MD EXAMINATION: MM SCREENING [...] 01/22/24 194 DD/ 1404 TD/TT: 01/12/24 1418 Field Service Tech: Mehran Garcia MD IM BI PROCEDURES Edited Result - Final * HEPATITIS C AB W/REFL TO HCV RNA, QN, PCR (10/17/2019 9:05 AM EDT) HEPATITIS C ANTIBODY NON-REACT TAD NON-REACT TAD [facility] INDEX 0.01 <1.00 [facility] Comment: HCV antibody was non-reactive. There is no laboratory evidence of HCV infection. In most cases, no further action is required. However, if recent HCV exposure is suspected, a test for HCV RNA (test code 74865) is suggested. For additional information please refer to http://Plasmon.Printi/faq/CCA09f5 (This link is being provided for informational/ educational purposes only.) HEPATITIS C ANTIBODY NON-REACT TAD NON-REACT TAD [facility] INDEX 0.01 <1.00 [facility] Comment: HCV antibody was non-reactive. There is no laboratory evidence of HCV infection. In most cases, no further action is required. However, if recent HCV exposure is suspected, a test for HCV RNA (test code 88997) is suggested. For additional information please refer to http://education.[employer]/faq/DIR79q4 (This link is being provided for informational/ educational purposes only.) 10/17/2019 9:05 AM EDT Mehran Garcia MD HISTORICAL/NON ORD ERABLE LABS Final Result Performing Organization Address [facility] Co de Phone Number [facility] [address] * HIV 1/2 ANTIGEN/ANTIBODY,FOURTH GENERATION W/RFL (10/17/2019 9:05 AM EDT) HIV-1/2 ANTIGEN AND ANTIBODIES, 4TH GENERATION W/ REFLEX NON-REACT TAD NON-REACT TAD [facility] Comment: HIV-1 antigen and HIV-1/HIV-2 [...] purpose. For additional information please refer to http://education.Printi/faq/XOK655 (This link is being provided for informational/ educational purposes only.) The performance of this assay has not been clinically validated in patients less than 2 years old. 10/17/2019 9:05 AM EDT Mehran Garcia MD LAB BLOOD ORDERABL ES Final Result Performing Organization Address [facility] de Phone Number [facility] [address] from Last 3 Months or Most Recently Relevant to Health Maintenance [place] [address] [place] [address] [employer] [facility] 3 Care Teams Hotbed Lever Operator Relationship Specialty Start Date End Date Mehran Calloway MD [address] [place] [phone] PCP - General Internal Medicine 06/10/19
--- OUTSIDE RECORDS SUMMARY | 2025-01-17 15:44 | XMS_ITS | Encounter Summary ---
Author Organization [employer] Address [address] [place] [address] [place] [address] Care Team Providers Care Encoding Machine Operator Name Role Phone Mehran Calloway MD Primary Care Prov ider Reason for Visit * Reason Comments Med Refill Encounter Details Date Type Department Care Team ([facility] st Contact Info) Description 11/04/2022 Refill [facility]EDS [address] [place], [place] [phone] Mehran Calloway MD [address] [place] [address] Acquired hypothyroidism Social History Tobacco Use Types [...] documented as of this encounter Care Teams Encoding Machine Operator Relationship Specialty Start Date End Date ChaoMehran Mejía MD [address] [place] [address] PCP - General Internal Medicine 06/10/19 documented as of this encounter
--- OUTSIDE RECORDS SUMMARY | 2025-01-17 15:44 | XMS_ITS | Encounter Summary ---
Author Organization [employer] Address [address] [place] [address] Care Team Providers Care Varnish Finisher Name Role Phone Ida Lang MD Primary Care Provider Unavail able Encounter Details Date Type Department Care Team (Latest Contact Info) Description 08/06/[address] [facility] Lab [address] [place] [address] Rasheed Pool MD [address] [address] Encounter for gynecological examination (general) [...] LAB MICROBIOLOGY METHOD 08/06/2024 12:57 PM EDT [facility] Brushing/Spatula Cervix uteri structure / Unknown 08/02/2024 08/06/2024 7:19 AM EDT us Rasheed Pool MD LAB MOLECULAR DIAGNOSTICS ORDE RABJUSTINE Final Result Performing Organization Address [facility]/ZIP Co de Phone Number [facility] [address] [place] [address], [place] [phone] * Chlamydia trachomatis and neisseria gonorrhoeae by tma, thinprep (08/02/2024 12:00 AM EDT) N. gonorrhoeae, RNA Probe Negative Negative LAB MICROBIOLOGY METHOD 08/06/2024 12:24 PM EDT [facility] Chlamydia, RNA Probe Negative Negative LAB MICROBIOLOGY METHOD 08/06/2024 12:24 PM EDT [facility] Brushing/Spatula Cervix uteri structure / Unknown 08/02/2024 08/06/2024 7:19 AM EDT us Rasheed Pool MD LAB CYTOLOGY ORDERABLES Final Result Performing Organization Address [facility]/ZIP Co de Phone Number [facility] [address] [place] [address], [place] [phone] * Pap smear (08/02/2024 12:00 AM EDT) Interpretation Negative for intraepithelial lesion or malignancy 08/06/2024 4:38 PM EDT [facility] Clinical Information IUD 08/06/2024 4:38 PM EDT [facility] General Categorization Negative 08/06/2024 4:38 PM EDT [facility] Other Findings Shift in kiran suggestive of bacterial vaginosis 08/06/2024 4:38 PM EDT [facility] Specimen Adequacy Satisfactory for evaluation, endocervical/cosby sformation zone component present 08/06/2024 4:38 PM EDT [facility] Pap Methodology Liquid Based Pap Test 08/06/2024 4:38 PM EDT [facility] Disclaimer Note: This pap test could not be imaged utilizing the [employer] Imaging System and required a manual review. The Pap test is a screening test which carries an inherent false negative rate. These test results should be correlated with the patient's clinical findings and history. This Pap test was processed using an automated screening system. Technical cytopathology services provided by [facility], at [address] [place] [address] (CLIA # [id number]/Benson Cervantes MD, Tuber Helper.) 08/06/2024 4:38 PM EDT [facility] Console Pap Interpretation Reported 08/06/2024 4:38 PM EDT [facility] Brushing/Spatula Cervix uteri structure / Unknown 08/02/2024 08/06/2024 7:19 AM EDT us Rasheed Pool MD LAB CYTOLOGY ORDERABLES Final Result [facility] [address] [place] [address], documented in this encounter Visit Diagnoses Diagnosis Encounter for gynecological examination (general) (routine) without abnormal findings documented in this encounter Care Teams Varnish Finisher Relationship Specialty Start Date End Date Ida Lang MD PCP - General Internal Medicine 11/20/17 documented as of this encounter
--- OUTSIDE RECORDS SUMMARY | 2025-01-17 15:44 | XMS_ITS | Clinical Summary ---
Author Organization [address] Address [address] [place] [address] Phone Care Team Providers Care Press Leader Name Role Phone Ida Lang MD Primary [...] gynecological examination (general) (routine) without abnormal findings [facility] SCREENING DIGITAL Routine 01/05/2018 3:56 PM EDT Encounter for screening mammogram for malignant neoplasm of breast from Last 3 Months or Most Recently Relevant to Health Maintenance Results * HPV with reflex genotype (08/02/2024 12:00 AM EDT) HPV Negative Negative LAB MICROBIOLOGY METHOD 08/06/2024 12:57 PM EDT [facility] Brushing/Spatula Cervix uteri structure / Unknown 08/02/2024 08/06/2024 7:19 AM EDT Rasheed Pool MD LAB MOLECULAR DIAGNOSTICS ALEJANDRA TREJO Final Result [facility] [address] [place] [address], * [facility] SCREENING DIGITAL (01/05/2018 3:56 PM EDT) Anatomical Region Laterality Modality Mammography 01/05/2018 1:59 PM EDT Narrative 01/05/2018 3:56 PM EDT [facility] Diagnostic Imaging Department [address] [place] [address] Patient: CHANTELL TAVARES /Age/Sex: 1975 - 42 - F Unit#: [id number] Location/Status: SPDIMAM/REG CLI Mnemonic/Ordering Site: [facility] Ordering Physician: IDA LANG MD [facility] Screening Digital - 01/05/18 - 1458 EXAM: [facility] Screening Digital EXAM DATE AND TIME: 01/05/2018 2:59 PM HISTORY: Screening. COMPARISON: 08/18/16 TECHNIQUE: CC and MLO views of both breasts were obtained using full field digital mammography. Bilateral digital breast tomosynthesis was performed in the MLO projection. Computer aided detection with the AdScale 7.2-H was employed. TISSUE DENSITY: b. There [...] Routine screening mammogram BILATERAL in 1 year. [address]55, [address]203 3342F, 7025F Dictating Physician: FLETCHER LUNA MD Electronically Signed by: FLECTHER LUNA MD Dic Date/Time: 01/05/181554 Sign date/Time: 01/05/181555 Procedure Note Fletcher Luna MD - 03/01/2022 [facility] Diagnostic Imaging Department [address] [place] [address] Patient: CHANTELL TAVARES /Age/Sex: 1975 - 42 - F Unit#: [id number] Location/Status: SPDIMAM/REG CLI Mnemonic/Ordering Site: [facility] Ordering Physician: IDA LANG MD [facility] Screening Digital - 01/05/18 - 1458 EXAM: [facility] Screening Digital EXAM DATE AND TIME: 01/05/2018 2:59 PM HISTORY: Screening. COMPARISON: 08/18/16 TECHNIQUE: CC and MLO views of both breasts were obtained using fullfield digital mammography. Bilateral digital breast tomosynthesis was performedin the MLO projection. Computer aided detection with the AdScale 7.2-Hwas employed. TISSUE DENSITY: b. There are [...] Routine screening mammogram BILATERAL in 1 year. 13895, 22330 3342F, 7025F Dictating Physician: FLETCHER LUNA MD Electronically Signed by: FLETCHER LUNA MD Dic Date/Time: 01/05/18 1555 Sign date/Time: 01/05/18 1556 Ida Lang MD IMG BI PROCEDURES Final Result from Last 3 Months or Most Recently Relevant to Health Maintenance Insurance [facility] Care Teams Press Leader Relationship Specialty Start Date End Date Ida Lang MD PCP - General Internal Medicine 11/20/17
--- OUTSIDE RECORDS SUMMARY | 2025-01-17 15:44 | XMS_ITS | Encounter Summary ---
Author Organization [employer] Address [address] [facility] 7 [place] [address] Care Team Providers Care Radio Station Audio Engineer Name Role Phone Mehran Calloway MD Primary Care Prov ider Encounter Details Date Type Department Care Team ([facility] st Contact Info) Description 09/18/2023 Orders Only [facility] MED & PEDS [address] [place], [place] [phone] Mehran Calloway MD [address] [place] [address] Social History Tobacco Use Types Packs/Day Years [...] documented as of this encounter Care Teams Radio Station Audio Engineer Relationship Specialty Start Date End Date Mehran Calloway MD [address] [place] [phone] PCP - General Internal Medicine 06/10/19 documented as of this encounter
--- OUTSIDE RECORDS SUMMARY | 2025-01-17 15:44 | XMS_ITS | Encounter Summary ---
Author Organization [employer] Address [address] [place] [address] [place] [address] Care Team Providers Care High School Music Teacher Name Role Phone Mehran Calloway MD Primary Care Prov ider Reason for Visit * Reason Comments Med Refill Encounter Details Date Type Department Care Team ([facility] st Contact Info) Description 09/30/2022 Refill [facility] CH[facility] MED & PEDS [address] [place], [place] [phone] Mehran Calloway MD [address] [place] [address] Acquired hypothyroidism Social History Tobacco Use Types [...] documented as of this encounter Care Teams High School Music Teacher Relationship Specialty Start Date End Date ChaoMehran Mejía MD [address] [place] [address] PCP - General Internal Medicine 06/10/19 documented as of this encounter
--- OUTSIDE RECORDS SUMMARY | 2025-01-17 15:44 | XMS_ITS | Encounter Summary ---
Author Organization [employer] Address [address] [place] [address] 7 [place] [address] Care Team Providers Care Manufacturing Supervisor 2Nd Shift Name Role Phone Mehran Calloway MD Primary Care Prov ider Reason for Visit * Reason Onset Date Comments Hospital Follow-up 07/14/2023 Encounter Details Date Type Department Care Team ([facility] st Contact Info) Description 07/14/2023 Telephone [facility] MED & PEDS [address] [place], [place] [phone] Mehran Calloway MD [address] [place] [address] Hospital Follow-up Social History Tobacco Use Types [...] from pt requesting a HDF appt. Hospital: [facility] Date of admission: 07/09/23 Discharge date: 07/13/23 Diagnosed: appendix removal Please contact pt at [phone] documented in this encounter Plan of Treatment Not on file documented as of this encounter Visit Diagnoses Not on filedocumented in this encounter Additional Health Concerns Assessment Noted Time PHQ-9 Depression Total Score: 0 05/25/19 24 3:03 PM EDT documented as of this encounter Care Teams Manufacturing Supervisor 2Nd Shift Relationship Specialty Start Date End Date Mehran Calloway MD [address] [place] [phone] PCP - General Internal Medicine 06/10/19 documented as of this encounter
== END 2025-01-17 13:41 | disposition home or self-care (01) ==
LOC: HO.MAMMO 13:40
PROVIDERS: PCP Internal Medicine; Visit Provider Internal Medicine
DX: Z12.31 Encounter for screening mammogram for malignant neoplasm of breast (principal)
CPT/HCPCS: 77063; 77067

== ENCOUNTER → 2025-01-17 14:15 | Outpatient (BNV) | payer OTHER, SELFPAY | PROVIDERS: PCP Internal Medicine; Visit Provider Internal Medicine | DX: Z12.31 Encounter for screening mammogram for malignant neoplasm of breast (principal) | CPT/HCPCS: 77063; 77067 ==